=== PATIENT | female | born 1955 | race Caucasian/White ===

== ENCOUNTER → 2018-04-12 12:50 | Outpatient (CLI) | payer OTHER, MEDICAID, SELFPAY ==
[2018-04-12 14:08] LABS: Alanine Aminotransferase 44 IU/L (9-52); Albumin 4.3 g/dL (3.5-5.0); Albumin Globulin Ratio 1.7 (1.0-2.8); Alkaline Phosphatase 139 U/L (38-126); Aspartate Aminotransferase 39 IU/L (14-36); Bilirubin Total 0.8 mg/dL (0.2-1.3); Blood Urea Nitrogen 18 mg/dL (7-17); Calcium 9.8 mg/dL (8.4-10.2); Carbon Dioxide 28 mmol/L (22-32); Chloride 104 mmol/L (98-107); Estimated Glomerular Filt Rate > 60.0 mL/min (>60); Globulin 2.6 g/dL (1.7-4.1); Glucose 90 mg/dL (80-110); HEMOLYSIS < 15 (0-50); Sodium 141 mmol/L (137-145); Total Protein 6.9 g/dL (6.3-8.2)
[2018-04-12 14:15] LABS: Add Manual Diff / Slide Review NO; Basophils Percent Auto 0.7 % (0-2); Eosinophils Percent Auto 4.7 % (2-4); Hematocrit 43.9 % (36-46); Hemoglobin 15.3 g/dL (12.0-16.0); Lymphocytes Percent Auto 30.3 % (25-40); Mean Corpuscular HGB Conc 34.9 % (30-36); Mean Corpuscular Hemoglobin 31.1 PG (26-34); Monocytes Percent Auto 6.6 % (3-14); Neutrophils Absolute Auto 3400 /uL (3000-5900); Neutrophils Percent Auto 57.7 % (50-75); Platelet Count 225 X10^3/uL (150-400); Red Blood Cell Count 4.94 X10^6/uL (4.0-5.2); Red Cell Distribution Width 12.9 % (11.6-14.8); White Blood Cell Count 5.9 X10^3/uL (4.5-11.0)
[2018-04-12 14:33] LABS: Thyroid Stimulating Hormone 0.26 uIU/mL (0.47-4.68)
[2018-04-12 14:39] LABS: Ferritin 16.3 ng/mL (11.1-264)
[2018-04-14 14:16] LABS: Dehydroepiandrosterone Sulfate 141 mcg/dL (8-188)
== END ==
PROVIDERS: PCP Family Medicine; Visit Provider Family Medicine
DX: L65.9 Nonscarring hair loss, unspecified (principal)
CPT/HCPCS: 36415; 80053; 82627; 82728; 84443; 85025

== ENCOUNTER → 2018-04-13 15:18 | Outpatient (CLI) | payer OTHER, MEDICAID, SELFPAY ==
[2018-04-13 15:59] LABS: Free T3, Triiodothyronine Free 3.73 pg/mL (2.77-5.27); Free T4, Direct Thyroxine 1.52 ng/dL (0.78-2.19)
== END ==
PROVIDERS: PCP Family Medicine; Visit Provider Family Medicine
DX: L65.9 Nonscarring hair loss, unspecified (principal)
CPT/HCPCS: 84439; 84481

== ENCOUNTER → 2018-07-07 14:50 | Outpatient (CLI) | payer OTHER, MEDICAID, SELFPAY ==
[2018-07-07 15:34] LABS: Hemoglobin A1C% w Est Avg Glu 5.5 % (4.0-6.0)
== END ==
PROVIDERS: PCP Family Medicine; Visit Provider Family Medicine
DX: E11.8 Type 2 diabetes mellitus with unspecified complications (principal)
CPT/HCPCS: 36415; 83036

== ENCOUNTER 2018-07-23 17:36 | Emergency (ER) | payer OTHER, MEDICAID, SELFPAY ==
[2018-07-23 17:39] VITALS: BP 141/79; PULSE 71; RESP 18; TEMP 36.5; O2SAT 100; BMI 45.4
--- NOTE | 2018-07-23 17:56 | DI.RAD.S_ITS ---
PROCEDURE: XR CHEST 2V INDICATIONS: shortness of breath TECHNIQUE: 2 views of the chest were acquired. COMPARISON: None. FINDINGS: Surgical changes and devices: Left shoulder arthroplasty is unremarkable. Lungs and pleura: No pleural effusions or pneumothorax. Lungs are clear. Mediastinum: Mediastinal contours are normal. Heart size is normal. Bones and chest wall: No suspicious bony abnormalities. Soft tissues appear unremarkable. IMPRESSION: No acute cardiopulmonary findings. Dictated by: Nat Amador M.D. on 07/23/2018 at 18:49 Approved by: Nat Amador M.D. on 07/23/2018 at 18:50
--- NOTE | 2018-07-23 18:06 | ED_ITS ---
HPI - Dizziness General Chief Complaint: Dizziness Stated Complaint: DIZZY LIGHT HEADED/HISTORY OF BLOOD CLOTS BOTH LEG Time Seen by Provider: 07/23/18 18:03 Source: patient Mode of arrival: ambulatory Limitations: no limitations History of Present Illness HPI Narrative: 62-year-old female with a history of DVTs and PEs. She does have an IVC filter in place. He is not currently on anticoagulation. Here for evaluation of lightheadedness and weakness. Patient states that yesterday morning she woke up and felt very lightheaded. Not vertigo. No other associated symptoms. She states she sat down and the symptoms went away. She felt good the rest of the day. She states that this morning the same symptoms reoccurred. They did go away and then this afternoon she had a return of the symptoms. She states that she felt just like this when she was diagnosed with the DVTs and PEs. She states that when she is having the symptoms she is short of breath when she is not having the symptoms her breathing is normal. No chest pain. Related Data Home Medications Medication Instructions Recorded Confirmed vitamin B complex [B 1 tab PO QDAY #0 09/17/16 06/28/18 Complex-Vitamin B12] potassium chloride 10 meq PO Q DAY #30 tab 12/25/17 06/28/18 Previous Rx's Medication Instructions Recorded Diabetic Shoes ea #1 11/11/16 loratadine-pseudoephedrine 1 tab PO QDAY PRN #30 tab 08/06/17 quetiapine 25 mg OR Q DAY #90 tab 08/19/17 [bath bench] #1 10/21/17 cyclobenzaprine 10 mg PO TIDP PRN #45 tab 02/10/18 diphenhydramine HCl 50 mg PO Q6HP PRN #100 cap 03/19/18 minocycline 50 mg capsule 50 mg PO QDAY #60 cap 03/19/18 [true metrix test str] 1 ea SUBCUT Q DAY #100 ea 04/08/18 lancets See Label Instructions .ROUTE 04/08/18 .COMPLEX #100 ferrous sulfate 325 mg (65 mg 325 mg PO DAILY #30 tab 05/24/18 iron) tablet disabled parking permit See Label Instructions .ROUTE 05/30/18 .COMPLEX #1 each quetiapine [Seroquel] 50 mg PO Q DAY #90 tab 06/14/18 lift chair #1 ea 06/22/18 ferrous sulfate, dried ER 159 mg 159 mg PO DAILY #30 tab 06/28/18 (45 mg iron) tablet,extended release vit C 150 mg-vit E 30 unit-lutein 1 cap PO DAILY #30 cap 06/28/18 5 bp-hhbiknku-iqwii 3 150 mg capsule ferrous sulfate 325 mg (65 mg 325 mg PO DAILY #30 tab 06/30/18 iron) tablet,delayed release vitamins A,C,J-yjpi-mhdoks 14,320 1 cap PO DAILY #30 cap 07/02/18 unit-226 mg-200 unit capsule tramadol 50 mg tablet 50 mg PO Q4HP PRN #100 tab 07/21/18 naproxen 500 mg tablet 500 mg PO BID PRN #60 tab 07/23/18 Allergies Allergy/AdvReac Type Severity Reaction Status Date / Time amoxicillin [AMOXICILLIN] Allergy Unknown Verified 07/23/18 17:39 azelastine [AZELASTINE] AdvReac Severe BITTER Verified 07/23/18 17:39 HORRIBLE AFTER TASTE THAT TOOK 1 1/2 DAYS TO STOP acetaminophen [From VICODIN] AdvReac Mild constipatio Verified 07/23/18 17:39 n codeine [CODEINE] AdvReac Mild headache Verified 07/23/18 17:39 fluticasone [From FLONASE] AdvReac Mild Nose bleeds Verified 07/23/18 17:39 hydrocodone [From VICODIN] AdvReac Mild constipatio Verified 07/23/18 17:39 n Review of Systems Constitutional Denies fatigue, Denies fever(s), Denies headache(s) and Denies lethargy ENT Ears, Nose, Mouth, and Throat: Denies vertigo, Reports dizziness and Denies headache(s) Cardiovascular Denies chest pain, Denies syncope, Denies edema, Denies irregular heart rhythm, Reports lightheadedness, Denies palpitations and Denies dyspnea Respiratory Denies dyspnea Gastrointestinal Gastrointestinal: Denies abdominal pain, Denies melena, Denies nausea and Denies vomiting Musculoskeletal Denies myalgias and Denies arthralgias Integumentary/Breasts Denies lesions and Denies rash Neurologic Denies confusion, Denies vertigo, Reports dizziness, Denies syncope and Denies headache(s) Psychiatric Denies confusion Endocrine Denies fatigue and Denies palpitations Hematologic/Lymphatic Denies easy bleeding and Denies easy bruising [facility] Medical History Iron deficiency (Chronic) Itchy scalp (Chronic) Hair loss (Chronic) H/O deep venous thrombosis (Resolved Unknown) Chronic pain syndrome (Chronic Unknown) Low back pain (Chronic Unknown) Depression (Chronic 1992) Bipolar disorder (Chronic 1992) Seizures (Inactive 1989) Migraines (Chronic Unknown) Foot pain (Resolved 2004) Fibromyalgia (Chronic Unknown) Glaucoma (Chronic Unknown) Partial blindness (Chronic Unknown) Irritable bowel syndrome (Chronic Unknown) Carpal tunnel syndrome of right wrist (Chronic 12/25/17) Allergy (Chronic 1992) Diabetes (Chronic Unknown) Lupus (Chronic Unknown) Chickenpox (Resolved Unknown) Fractures (Resolved Unknown) Surgical History H/O shoulder surgery (Resolved 2012) H/O elbow surgery (Resolved 2011) Family History Father Age: 82 Lung cancer Diabetes 1.5, managed as type 2 Heart disease Social History Smoking Status: Former smoker Exam Initial Vital Signs Initial Vital Signs: Vital Signs Temperature 97.7 F 07/23/18 17:39 Pulse Rate 71 07/23/18 17:39 Respiratory Rate 18 07/23/18 17:39 Blood Pressure 141/79 H 07/23/18 17:39 Pulse Oximetry 100 07/23/18 17:39 Const General: cooperative, healthy appearing, comfortable, well developed, well groomed and No acute distress Orientation: alert, awake and oriented x3 [facility] Head: normal to inspection and normocephalic Resp Effort & Inspection: normal respiratory effort Auscultation: clear to auscultation bilaterally Cardio Rate: regular rate Rhythm: regular rhythm Pulses: radial pulses present GI Inspection: normal to inspection, no edema and non-distended Palpation: soft, No firm and No tender Skin Lesions: no lesions Rashes: no rashes Neuro General: alert and oriented x3 Cognition: normal cognition Speech: speech normal Extrem General: normal to inspection, capillary refill normal and No edema Psych Appearance: grossly normal and well kempt Course Orders Ordered: ED Orders 07/23/18 17:56 XR chest 2V Stat EKG-12 Lead Stat 07/23/18 18:30 Complete Blood Count AUTO DIFF Stat Comprehensive Metabolic Panel Stat Lactate (Lactic Acid) Stat Prothrombin Time INR Stat 07/23/18 18:49 CT angio chest PE protocol Stat 07/23/18 18:50 perip venous low extrem bi Stat Discontinued Medications Sodium Chloride (Normal Saline 0.9%) 1,000 mls @ 500 mls/hr IV BOLUS ONE Stop: 07/23/18 20:48 Last Infusion: 07/23/18 21:32 Dose: 0 mls/hr Admin: 07/23/18 18:58 Dose: 500 mls/hr Vital Signs - 8 hr 07/23/18 17:39 07/23/18 18:35 07/23/18 19:45 Temperature 97.7 F Pulse Rate 71 82 79 Respiratory Rate 18 22 19 Blood Pressure 141/79 H Blood Pressure [Right Arm] 125/50 L 135/60 Pulse Oximetry 100 100 100 07/23/18 20:29 07/23/18 21:33 Temperature Pulse Rate 85 81 Respiratory Rate 16 17 Blood Pressure 120/55 L Blood Pressure [Right Arm] 137/58 L Pulse Oximetry 100 100 MDM - Dizziness Lab Data Attestation: I reviewed the patient's lab results. Result diagrams: 07/23/18 18:30 07/23/18 18:30 Lab Results 07/23/18 07/23/18 07/23/18 Range/Units 18:30 18:30 18:30 WBC 6.5 (4.5-11.0) X10^3/uL RBC 4.76 (4.0-5.2) X10^6/uL Hgb 14.9 (12.0-16.0) g/dL Hct 42.7 (36-46) % MCV 89.8 (80-100) fL MCH 31.3 (26-34) PG MCHC 34.8 (30-36) % RDW 13.3 (11.6-14.8) % Plt Count 212 (150-400) X10^3/uL Neut % (Auto) 60.3 (50-75) % Lymph % (Auto) 27.0 (25-40) % Mitchell % (Auto) 7.2 (3-14) % Eos % (Auto) 4.4 H (2-4) % Baso % (Auto) 1.1 (0-2) % Neut # (Auto) 3900 (9528-4666) /uL PT 12.0 (10.1-12.7) SECONDS INR 1.1 (0.9-1.3) Sodium 145 (137-145) mmol/L Potassium 3.9 (3.4-5.1) mmol/L Chloride 105 (98-107) mmol/L Carbon Dioxide 32 (22-32) mmol/L BUN 22 H (7-17) mg/dL Creatinine 1.00 (0.52-1.04) mg/dL Estimated GFR 56.6 L (>60) mL/min BUN/Creatinine Ratio 22.0 (6-22) Glucose 90 (80-110) mg/dL Lactate (0.7-2.1) mmol/L Calcium 9.3 (8.4-10.2) mg/dL Total Bilirubin 0.4 (0.2-1.3) mg/dL AST 30 (14-36) IU/L ALT 34 (9-52) IU/L Alkaline Phosphatase 161 H (38-126) U/L Total Protein 6.5 (6.3-8.2) g/dL Albumin 4.1 (3.5-5.0) g/dL Globulin 2.4 (1.7-4.1) g/dL Albumin/Globulin Ratio 1.7 (1.0-2.8) //18 Range/Units 18:30 WBC (4.5-11.0) X10^3/uL RBC (4.0-5.2) X10^6/uL Hgb (12.0-16.0) g/dL Hct (36-46) % MCV (80-100) fL MCH (26-34) PG MCHC (30-36) % RDW (11.6-14.8) % Plt Count (150-400) X10^3/uL Neut % (Auto) (50-75) % Lymph % (Auto) (25-40) % Mitchell % (Auto) (3-14) % Eos % (Auto) (2-4) % Baso % (Auto) (0-2) % Neut # (Auto) (4507-4054) /uL PT (10.1-12.7) SECONDS INR (0.9-1.3) Sodium (137-145) mmol/L Potassium (3.4-5.1) mmol/L Chloride (98-107) mmol/L Carbon Dioxide (22-32) mmol/L BUN (7-17) mg/dL Creatinine (0.52-1.04) mg/dL Estimated GFR (>60) mL/min BUN/Creatinine Ratio (6-22) Glucose (80-110) mg/dL Lactate 0.6 L (0.7-2.1) mmol/L Calcium (8.4-10.2) mg/dL Total Bilirubin (0.2-1.3) mg/dL AST (14-36) IU/L ALT (9-52) IU/L Alkaline Phosphatase (38-126) U/L Total Protein (6.3-8.2) g/dL Albumin (3.5-5.0) g/dL Globulin (1.7-4.1) g/dL Albumin/Globulin Ratio (1.0-2.8) Urine Dip Bedside Urine Glucose Negative Bedside Urine Bilirubin - Negative Bedside Urine Ketone - Negative Urine Specific [place] 1.015 Bedside Urine Occult Blood - Negative Bedside Urine pH 6.0 Bedside Urine Protein - Negative Bedside Urine Urobilinogen - Negative Bedside Urine Nitrite - Negative Bedside Urine Leukocytes - Negative Esterase Imaging Data Chest x-ray: Radiologist's impression: [address] [address] XRay Report Signed Patient: Rupa Sullivan [facility]#: [id number] : 8Acct:[id number] Age/Sex: 62 / FDate of Service: 07/23/18 Loc: ED Accession Number: [id number] Procedure: XR chest 2V Ordering Provider: Eric Reed D.O. PROCEDURE: XR CHEST 2V INDICATIONS: shortness of breath TECHNIQUE: 2 views of the chest were acquired. COMPARISON: None. FINDINGS: Surgical changes and devices: Left shoulder arthroplasty is unremarkable. Lungs and pleura: No pleural effusions or pneumothorax. Lungs are clear. Mediastinum: Mediastinal contours are normal. Heart size is normal. Bones and chest wall: No suspicious bony abnormalities. Soft tissues appear unremarkable. IMPRESSION: No acute cardiopulmonary findings. Dictated by: Nat Amador M.D. on 07/23/2018 at 18:49 Approved by: Nat Amador M.D. on 07/23/2018 at 18:50 CT scan - chest: Radiologist's impression: [address] [address] [address] Scan Report Signed Patient: Rupa Sullivan#: [id number] : 8Acct:[id number] Age/Sex: 62 / FDate of Service: 07/23/18 Loc: ED Accession Number: [id number] Procedure: CT angio chest PE protocol Ordering Provider: Eric Reed D.O. PROCEDURE: CT ANGIO CHEST PE PROTOCOL INDICATIONS: shortness of breath history of clots TECHNIQUE: After the administration of intravenous contrast, 2 mm thick sections acquired from the pulmonary apices to the posterior costophrenic angles. 3-dimensional maximum intensity projection (MIP) coronal and sagittal reformats were then acquired through the thorax. For radiation dose reduction, the following was used: automated exposure control, adjustment of mA and/or kV according to patient size. COMPARISON: None. FINDINGS: Image quality: Excellent. Pulmonary arteries: The central pulmonary arteries demonstrate adequate opacification to evaluate for pulmonary embolus. The segmental and subsegmental pulmonary arteries are suboptimally opacified limiting evaluation for pulmonary embolus. No filling defects within the pulmonary trunk or the main pulmonary arteries to suggest embolus. Lungs and pleura: Lungs are clear. No pleural effusions or pneumothorax. Central and peripheral airways are patent. Mediastinum: Heart size is normal, without pericardial effusion. No mediastinal or hilar adenopathy. Thoracic aorta is normal in caliber and enhancement. Esophagus is normal in caliber, without hiatal hernia. Bones and chest wall: No suspicious bony lesions. Ribs and thoracic spine appear intact throughout. Thyroid gland is unremarkable. No axillary or supraclavicular adenopathy. Abdomen: Visualized upper abdominal solid organs appear normal in the early arterial phase of enhancement. IMPRESSION: 1. Suboptimal opacification of the segmental and subsegmental arteries to evaluate for embolus. However, no pulmonary embolus is visualized within the central pulmonary arteries. 2. No findings to explain dyspnea. Dictated by: Nat Amador M.D. on 07/23/2018 at 20:00 Approved by: Nat Amador M.D. on 07/23/2018 at 20:06 Venous US: Radiologist's impression: PROCEDURE: US PERIPH VENOUS LOW EXTREM BI INDICATIONS: EDEMA; HISTORY DVT TECHNIQUE: Real-time imaging, as well as color and pulse Doppler interrogation, were performed of the deep veins of both legs from the inguinal ligament to the popliteal fossa. COMPARISON: None. FINDINGS: The deep veins are normally compressible, and free of intraluminal thrombus. Color and pulse Doppler demonstrate normal phasic intravascular flow. There is normal augmentation response to distal compression maneuver. IMPRESSION: No deep vein thrombosis of the bilateral lower extremities. Dictated by: Nat Amador M.D. on 07/23/2018 at 20:14 Approved by: Nat Amador M.D. on 07/23/2018 at 20:14 ECG Data Attestation: I personally reviewed and interpreted this ECG as follows: Prior ECG tracings: not available for review Interpretation: Sinus rhythm Ventricular rate 80 Normal QRS Normal QTC Nonspecific ST T wave changes MDM Narrative Medical decision making narrative: 62-year-old female. No signs of DVT or PE. Labs unremarkable. EKG unremarkable. She was asymptomatic the time of my exam. Doubt CVA. Doubt TIA. Symptoms are not consistent with vertigo. Patient was concerned about a DVT/PE which she does not have according to the studies done here in the emergency department. Will hold on further workup for now. Patient was given return precautions. She expressed understanding and agreement with plan. Discharge Plan Departure Patient Disposition: Home Clinical Impression: Lightheadedness Discharge Date/Time: 07/23/18 21:34 Interventions: ED Discharge Assessment Last Done: 07/23/18 21:33 Instructions: DI for Dizziness-Nonvertigo Activity Restrictions/Additional Instructions: Continue to take all of your medications as instructed. Increase your fluid intake. Return to the emergency department for any new or worsening symptoms Prescriptions: No Action ferrous sulfate, dried 159 mg (45 mg iron) tablet extended release 159 mg PO DAILY Qty: 30 RF: 5 vit C-vit X-iymvrx-uww-om-3 [Ocuvite] 319-20-7-150 xy-tham-xm-mg capsule 1 cap PO DAILY Qty: 30 RF: 5 vitamin B complex [B Complex-Vitamin B12] 1 EACH tablet 1 tab PO QDAY Qty: 0 RF: 0 Diabetic Shoes Qty: 1 RF: 0 loratadine-pseudoephedrine 10 MG/240 MG tablet extended release 24 hr 1 tab PO QDAY PRNQty: 30 RF: 3 quetiapine 25 MG tablet 25 mg OR Q DAY Qty: 90 RF: 4 [bath bench] Qty: 1 RF: 0 potassium chloride 10 MEQ capsule, extended release 10 meq PO Q DAY Qty: 30 RF: 1 cyclobenzaprine 10 MG tablet 10 mg PO TIDP PRNQty: 45 RF: 3 diphenhydramine HCl 50 mg capsule 50 mg PO Q6HP PRNQty: 100 RF: 5 minocycline 50 mg capsule 50 mg PO QDAY Qty: 60 RF: 1 [true metrix test str] 1 ea SUBCUT Q DAY Qty: 100 RF: 3 lancets See Label Instructions .ROUTE .COMPLEX Qty: 100 RF: 3 ferrous sulfate 325 mg (65 mg iron) tablet 325 mg PO DAILY Qty: 30 RF: [address] See Label Instructions .ROUTE .COMPLEX Qty: 1 RF: 0 quetiapine [Seroquel] 50 mg tablet 50 mg PO Q DAY Qty: 90 RF: 1 lift chair Qty: 1 RF: 0 ferrous sulfate 325 mg (65 mg iron) tablet,delayed release (DR/EC) 325 mg PO DAILY Qty: 30 RF: 0 vitamins A,C,H-axvi-ovgefk [PreserVision AREDS] 14,320-226-200 owve-xc-txqo capsule 1 cap PO DAILY Qty: 30 RF: 11 tramadol 50 mg tablet 50 mg PO Q4HP PRN (Reason: pain) Qty: 100 RF: 0 naproxen 500 mg tablet 500 mg PO BID PRN (Reason: pain) Qty: 60 RF: 5
[2018-07-23 18:35] VITALS: BP 125/50; PULSE 82; RESP 22; O2SAT 100
[2018-07-23 18:38] LABS: Add Manual Diff / Slide Review NO; Basophils Percent Auto 1.1 % (0-2); Eosinophils Percent Auto 4.4 % (2-4); Hematocrit 42.7 % (36-46); Hemoglobin 14.9 g/dL (12.0-16.0); Mean Corpuscular HGB Conc 34.8 % (30-36); Mean Corpuscular Hemoglobin 31.3 PG (26-34); Mean Corpuscular Volume 89.8 fL (80-100); Monocytes Percent Auto 7.2 % (3-14); Neutrophils Absolute Auto 3900 /uL (3000-5900); Neutrophils Percent Auto 60.3 % (50-75); Platelet Count 212 X10^3/uL (150-400); Red Blood Cell Count 4.76 X10^6/uL (4.0-5.2); Red Cell Distribution Width 13.3 % (11.6-14.8); White Blood Cell Count 6.5 X10^3/uL (4.5-11.0)
[2018-07-23 18:45] LABS: INR 1.1 (0.9-1.3)
--- NOTE | 2018-07-23 18:49 | DI.CT.S_ITS ---
PROCEDURE: CT ANGIO CHEST PE PROTOCOL INDICATIONS: shortness of breath history of clots TECHNIQUE: After the administration of intravenous contrast, 2 mm thick sections acquired from the pulmonary apices to the posterior costophrenic angles. 3-dimensional maximum intensity projection (MIP) coronal and sagittal reformats were then acquired through the thorax. For radiation dose reduction, the following was used: automated exposure control, adjustment of mA and/or kV according to patient size. COMPARISON: None. FINDINGS: Image quality: Excellent. Pulmonary arteries: The central pulmonary arteries demonstrate adequate opacification to evaluate for pulmonary embolus. The segmental and subsegmental pulmonary arteries are suboptimally opacified limiting evaluation for pulmonary embolus. No filling defects within the pulmonary trunk or the main pulmonary arteries to suggest embolus. Lungs and pleura: Lungs are clear. No pleural effusions or pneumothorax. Central and peripheral airways are patent. Mediastinum: Heart size is normal, without pericardial effusion. No mediastinal or hilar adenopathy. Thoracic aorta is normal in caliber and enhancement. Esophagus is normal in caliber, without hiatal hernia. Bones and chest wall: No suspicious bony lesions. Ribs and thoracic spine appear intact throughout. Thyroid gland is unremarkable. No axillary or supraclavicular adenopathy. Abdomen: Visualized upper abdominal solid organs appear normal in the early arterial phase of enhancement. IMPRESSION: 1. Suboptimal opacification of the segmental and subsegmental arteries to evaluate for embolus. However, no pulmonary embolus is visualized within the central pulmonary arteries. 2. No findings to explain dyspnea. Dictated by: Nat Amador M.D. on 07/23/2018 at 20:00 Approved by: Nat Amador M.D. on 07/23/2018 at 20:06
--- NOTE | 2018-07-23 18:50 | DI.US.S_ITS ---
PROCEDURE: US PERIPH VENOUS LOW EXTREM BI INDICATIONS: EDEMA; HISTORY DVT TECHNIQUE: Real-time imaging, as well as color and pulse Doppler interrogation, were performed of the deep veins of both legs from the inguinal ligament to the popliteal fossa. COMPARISON: None. FINDINGS: The deep veins are normally compressible, and free of intraluminal thrombus. Color and pulse Doppler demonstrate normal phasic intravascular flow. There is normal augmentation response to distal compression maneuver. IMPRESSION: No deep vein thrombosis of the bilateral lower extremities. Dictated by: Nat Amador M.D. on 07/23/2018 at 20:14 Approved by: Nat Amador M.D. on 07/23/2018 at 20:14
[2018-07-23 18:51] LABS: Alanine Aminotransferase 34 IU/L (9-52); Albumin 4.1 g/dL (3.5-5.0); Albumin Globulin Ratio 1.7 (1.0-2.8); Alkaline Phosphatase 161 U/L (38-126); Aspartate Aminotransferase 30 IU/L (14-36); Bilirubin Total 0.4 mg/dL (0.2-1.3); Blood Urea Nitrogen 22 mg/dL (7-17); Calcium 9.3 mg/dL (8.4-10.2); Carbon Dioxide 32 mmol/L (22-32); Chloride 105 mmol/L (98-107); Estimated Glomerular Filt Rate 56.6 mL/min (>60); Globulin 2.4 g/dL (1.7-4.1); Glucose 90 mg/dL (80-110); HEMOLYSIS < 15 (0-50); Potassium 3.9 mmol/L (3.4-5.1); Sodium 145 mmol/L (137-145); Total Protein 6.5 g/dL (6.3-8.2)
[2018-07-23 18:52] LABS: Lactate (Lactic Acid) 0.6 mmol/L (0.7-2.1)
[2018-07-23] MEDS: SODIUM CHLORIDE 0.9% 1,000 ML 500 ML IV (18:58)
[2018-07-23 19:45] VITALS: BP 135/60; PULSE 79; RESP 19; O2SAT 100
[2018-07-23 20:29] VITALS: BP 137/58; PULSE 85; RESP 16; O2SAT 100
[2018-07-23 21:33] VITALS: BP 120/55; PULSE 81; RESP 17; O2SAT 100
== END 2018-07-23 21:34 | disposition home or self-care (01) ==
PROVIDERS: Emergency Provider Emergency Medicine; PCP Family Medicine
DX: R42 Dizziness and giddiness (principal)
CPT/HCPCS: 71046; 71275; 80053; 81003; 83605; 85025; 85610; 93005; 93970; 96360; 96361; 99283; 99285; Q9967

== ENCOUNTER → 2019-01-26 13:50 | Outpatient (CLI) | payer OTHER, MEDICAID, SELFPAY ==
--- NOTE | 2019-01-26 13:53 | DI.RAD.S_ITS ---
PROCEDURE: XR KNEE LT 3V INDICATIONS: Knee pain TECHNIQUE: 3 views of the knee were acquired. COMPARISON: None. FINDINGS: Bones: No fractures or dislocations. No suspicious bony lesions. There is tricompartmental osteoarthritis, severe at the patellofemoral joint, moderate lateral femorotibial joint and mild at the medial femorotibial joint. Mild chondrocalcinosis. Soft tissues: No joint effusion. Note is made of soft tissue calcifications anterior to tibial tubercle. IMPRESSION: Severe osteoarthritis. Dictated by: Anastacia Alvarado M.D. on 01/26/2019 at 15:07 Approved by: Anastacia Alvarado M.D. on 01/26/2019 at 15:09
--- NOTE | 2019-01-26 13:53 | DI.RAD.S_ITS ---
PROCEDURE: XR KNEE RT 3V INDICATIONS: Knee pain TECHNIQUE: The views of the knee were acquired. COMPARISON: [facility], , KNEE 3V RIGHT, 10/21/2017, 10:54. FINDINGS: Bones: No fractures or dislocations. No suspicious bony lesions. There is tricompartmental osteoarthritis, most severe in the medial femorotibial compartment and patellofemoral compartment. Soft tissues: No joint effusion. No suspicious soft tissue calcifications. IMPRESSION: Severe osteoarthritis. Dictated by: Anastacia Alvarado M.D. on 01/26/2019 at 15:10 Approved by: Anastacia Alvarado M.D. on 01/26/2019 at 15:11
[2019-01-26 15:50] LABS: BUN Creatinine Ratio 28.6 (6-22); Blood Urea Nitrogen 20 mg/dL (7-17); Calcium 9.9 mg/dL (8.4-10.2); Carbon Dioxide 23 mmol/L (22-32); Chloride 108 mmol/L (98-107); Estimated Glomerular Filt Rate > 60.0 mL/min (>60); Glucose 157 mg/dL (80-110); HEMOLYSIS 22 (0-50); Potassium 4.1 mmol/L (3.4-5.1); Sodium 143 mmol/L (137-145)
[2019-01-26 16:15] LABS: Hemoglobin A1C% w Est Avg Glu 5.3 % (4.0-6.0)
== END ==
PROVIDERS: PCP Student in an Organized Health Care Education/Training Program; Visit Provider Student in an Organized Health Care Education/Training Program
DX: M25.562 Pain in left knee (principal); M25.561 Pain in right knee; M17.0 Bilateral primary osteoarthritis of knee; E66.01 Morbid (severe) obesity due to excess calories; Z68.42 Body mass index [BMI] 45.0-49.9, adult; E55.9 Vitamin D deficiency, unspecified
CPT/HCPCS: 36415; 73562; 80048; 82306; 83036

== ENCOUNTER → 2019-08-18 13:52 | Outpatient (CLI) | payer OTHER, MEDICAID, SELFPAY ==
[2019-08-18 15:44] LABS: Hematocrit 45.8 % (36-46); Hemoglobin 15.6 g/dL (12.0-16.0); Mean Corpuscular HGB Conc 34.1 % (30-36); Mean Corpuscular Hemoglobin 31.5 PG (26-34); Mean Corpuscular Volume 92.2 fL (80-100); Platelet Count 241 X10^3/uL (150-400); Red Blood Cell Count 4.97 X10^6/uL (4.0-5.2); Red Cell Distribution Width 12.8 % (11.6-14.8); White Blood Cell Count 5.8 X10^3/uL (4.5-11.0)
[2019-08-18 15:48] LABS: HEMOLYSIS < 15 (0-50); Iron 91 ug/dL (37-170)
[2019-08-18 15:56] LABS: Hemoglobin A1C% w Est Avg Glu 5.2 % (4.0-6.0)
[2019-08-18 16:01] LABS: Percent Iron Saturation 30 % (15-50); Total Iron Binding Capacity 305 ug/dL (265-497); Transferrin 247 mg/dL (206-381)
[2019-08-18 16:33] LABS: Creatinine Urine Random 47.2 mg/dL
[2019-08-18 16:38] LABS: Microalbumin Urine Random 0.9 mg/dL (0-1.6)
== END ==
PROVIDERS: PCP Student in an Organized Health Care Education/Training Program; Visit Provider Student in an Organized Health Care Education/Training Program
DX: E61.1 Iron deficiency (principal); E11.8 Type 2 diabetes mellitus with unspecified complications
CPT/HCPCS: 36415; 82043; 82570; 83036; 83540; 83550; 85027

== ENCOUNTER → 2021-05-01 14:52 | Outpatient (CLI) | payer OTHER, MEDICAID, SELFPAY ==
--- NOTE | 2021-05-01 14:53 | DI.RAD.S_ITS ---
PROCEDURE: XR SHOULDER RT MIN 2V INDICATIONS: Right shoulder pain after injury. c/o crepitus TECHNIQUE: 3 views of the shoulder were acquired. COMPARISON: None. FINDINGS: Bones: No fractures or dislocations. No suspicious bony lesions. Visualized ribs appear intact. Mild acromioclavicular and severe glenohumeral joint space narrowing with bony sclerosis and periarticular osteophyte formation. Soft tissues: No suspicious soft tissue calcifications. IMPRESSION: Mild acromioclavicular and severe glenohumeral joint degeneration. Dictated by: Abdirahman Barker [facility] Interpreted: Kvng Ortega MD on 05/01/2021 at 15:34 Transcribed by: SHELLEY on 05/01/2021 at 15:35 Approved by: Kvng Ortega M.D. on 05/01/2021 at 16:46
[2021-05-01 15:59] LABS: Hematocrit 45.9 % (36-46); Hemoglobin 15.4 g/dL (12.0-16.0); Mean Corpuscular HGB Conc 33.6 % (30-36); Mean Corpuscular Hemoglobin 31.1 PG (26-34); Mean Corpuscular Volume 92.6 fL (80-100); Platelet Count 205 X10^3/uL (150-400); Red Blood Cell Count 4.96 X10^6/uL (4.0-5.2); Red Cell Distribution Width 12.6 % (11.6-14.8); White Blood Cell Count 5.7 X10^3/uL (4.5-11.0)
[2021-05-01 16:20] LABS: Hemoglobin A1C% w Est Avg Glu 5.9 % (4.0-6.0)
[2021-05-01 16:23] LABS: Alanine Aminotransferase 32 IU/L (<35); Albumin 4.4 g/dL (3.5-5.0); Albumin Globulin Ratio 1.5 (1.0-2.8); Alkaline Phosphatase 184 U/L (38-126); Aspartate Aminotransferase 39 IU/L (14-36); BUN Creatinine Ratio 38.2 (6-22); Bilirubin Total 0.7 mg/dL (0.2-1.3); Blood Urea Nitrogen 21 mg/dL (7-17); Calcium 10.1 mg/dL (8.4-10.2); Carbon Dioxide 23 mmol/L (22-32); Chloride 107 mmol/L (98-107); Cholesterol 214 mg/dL (140-199); Estimated Glomerular Filt Rate > 60.0 mL/min (>60); Globulin 2.9 g/dL (1.7-4.1); Glucose 110 mg/dL (80-110); HDL Cholesterol 46 mg/dL (40-60); HEMOLYSIS < 15 (0-50); LDL Cholesterol Calculated 117 mg/dL (<100); Potassium 3.7 mmol/L (3.4-5.1); Sodium 142 mmol/L (137-145); Total Protein 7.3 g/dL (6.3-8.2); Triglycerides 254 mg/dL (35-150)
[2021-05-01 17:09] LABS: Creatinine Urine Random 98.4 mg/dL
[2021-05-01 17:10] LABS: HEMOLYSIS < 15 (0-50); Iron 85 ug/dL (37-170)
[2021-05-01 17:14] LABS: Microalbumi Creatinin Ratio Ur 29.4 ug/mg CR (<30); Microalbumin Urine Random 2.9 mg/dL (0-1.6)
[2021-05-01 17:20] LABS: Percent Iron Saturation 29 % (15-50); Total Iron Binding Capacity 294 ug/dL (265-497); Transferrin 240 mg/dL (206-381)
[2021-05-01 17:43] LABS: TSH w/ Reflex to FT4 0.05 uIU/mL (0.47-4.68)
[2021-05-02 04:13] LABS: Free T4, Direct Thyroxine 1.46 ng/dL (0.78-2.19)
== END ==
PROVIDERS: PCP Student in an Organized Health Care Education/Training Program; Referring Provider Student in an Organized Health Care Education/Training Program; Visit Provider Student in an Organized Health Care Education/Training Program
DX: M25.511 Pain in right shoulder (principal); E03.9 Hypothyroidism, unspecified; E11.59 Type 2 diabetes mellitus with other circulatory complications; E61.1 Iron deficiency; E66.01 Morbid (severe) obesity due to excess calories; I10 Essential (primary) hypertension; Z68.41 Body mass index [BMI] 40.0-44.9, adult
CPT/HCPCS: 36415; 73030; 80053; 80061; 82043; 82570; 83036; 83540; 83550; 84439; 84443; 85027

== ENCOUNTER 2021-07-24 14:26 | Inpatient (IN) | payer OTHER, MEDICAID, SELFPAY ==
[2021-07-24] VITALS (28 sets, daily range): BP systolic 115–157; BP diastolic 56–80; PULSE 65–87; RESP 14–41; TEMP 36.9–37.2; O2SAT 83–98; BMI 45.6
--- NOTE | 2021-07-24 14:29 | DI.RAD.S_ITS ---
PROCEDURE: XR CHEST 1V INDICATIONS: flu-like symptoms TECHNIQUE: One view of the chest was acquired. COMPARISON: [facility], CR, XR CHEST 2V, 07/23/2018, 17:42. FINDINGS: Surgical changes and devices: Partially visualized left shoulder arthroplasty. Lungs and pleura: There is appearance of bilateral pulmonary opacities. Mediastinum: Mediastinal contours appear normal. Heart size is enlarged. Bones and chest wall: No suspicious bony lesions. Overlying soft tissues appear unremarkable. IMPRESSION: Bilateral pulmonary opacities suspicious for pneumonia. Areas of superimposed edema cannot be excluded. Dictated by: Arabella Valdez M.D. on 07/24/2021 at 16:05 Approved by: Arabella Valdez M.D. on 07/24/2021 at 16:05
--- NOTE | 2021-07-24 14:40 | ED.GENADULT ---
HPI - General Adult General Chief complaint: Shortness of Breath/Dyspnea Stated complaint: sob Time Seen by Provider: 07/24/21 14:26 Source: patient Mode of arrival: EMS History of Present Illness HPI narrative: Patient is a 65-year-old female. Is under immunized against COVID-19 who is here for evaluation is 7-10 days of fevers and chills and cough. She states she is also very short of breath whenever she gets up to do anything. This does require her to sit down. She has chest pain when she coughs. Both her son and daughter both have COVID-19. Her daughter is currently admitted to the ICU at another facility due to COVID-19. She states that today it got to the point where she common breather do anything so she called EMS. Is reported that upon their arrival she was satting in the low 80s on room air. This did improve with oxygen by non-rebreather. No prior underlying lung issues. Related Data Previous Rx's Medication Instructions Recorded naproxen 500 mg tablet 500 mg PO BID PRN #60 tab 09/17/20 ferrous sulfate 325 mg (65 mg 325 mg PO DAILY #30 tab 03/19/21 iron) tablet,delayed release Allergies Allergy/AdvReac Type Severity Reaction Status Date / Time amoxicillin [AMOXICILLIN] Allergy Unknown Verified 07/24/21 14:51 azelastine [AZELASTINE] AdvReac Severe BITTER Verified 07/24/21 14:51 HORRIBLE AFTER TASTE THAT TOOK 1 1/2 DAYS TO STOP codeine [CODEINE] AdvReac Mild headache Verified 07/24/21 14:51 fluticasone [From FLONASE] AdvReac Mild Nose bleeds Verified 07/24/21 14:51 hydrocodone [From VICODIN] AdvReac Mild constipatio Verified 07/24/21 14:51 n Review of Systems Constitutional Constitutional: Reports body ache(s), Reports fatigue, Reports fever(s) and Reports lethargy Eyes Eyes: Reports system reviewed and no additional complaints, except as documented ENT Ears, Nose, Mouth, and Throat: Reports system reviewed and no additional complaints, except as documented Cardiovascular Cardiovascular: Denies chest pain, Reports dyspnea and Reports dyspnea on exertion Respiratory Respiratory: Reports dyspnea and Reports dyspnea on exertion Gastrointestinal Gastrointestinal: Reports system reviewed and no additional complaints, except as documented Musculoskeletal Musculoskeletal: Reports system reviewed and no additional complaints, except as documented Integumentary/Breasts Skin/Breast: Reports system reviewed and no additional complaints, except as documented Neurologic Neurologic: Reports system reviewed and no additional complaints, except as documented Endocrine Endocrine: Reports fatigue Hematologic/Lymphatic On Anticoagulants: No Allergic/Immunologic Allergic/Immunologic: Reports system reviewed and no additional complaints, except as documented Patient History Medical History (Updated 07/24/21 @ 18:09 by Mik Drake MD) Bunion of great toe of left foot (01/28/16) Carpal tunnel syndrome of right wrist (12/25/17) Chickenpox (Unknown) Depression (1992) Diabetes (Unknown) Environmental allergies Fibromyalgia (Unknown) Fractures (Unknown) Glaucoma (Unknown) H/O deep venous thrombosis (Unknown) Hair loss Hyperthyroidism Iron deficiency Irritable bowel syndrome (Unknown) Itchy scalp Lipoma of right upper extremity (05/20/16) Low back pain (Unknown) Lupus (Unknown) Migraines (Unknown) Pulmonary embolism Surgical History (Updated 05/04/21 @ 14:58 by Jadiel Morrison MD) H/O elbow surgery (2011) H/O shoulder surgery (2012) Family History Father Age: 85 Lung cancer Diabetes 1.5, managed as type 2 Heart disease Social History Smoking Status: Former smoker Smoking Status: Former smoker Exam Initial Vital Signs Initial Vital Signs: Vital Signs Temperature 98.4 F 07/24/21 14:30 Pulse Rate 80 07/24/21 14:30 Respiratory Rate 29 H 07/24/21 14:30 Blood Pressure 142/66 H 07/24/21 14:30 Pulse Oximetry 84 L 07/24/21 14:30 Const General: cooperative, well developed and well groomed [facility] Head: normal to inspection and normocephalic Eyes General: appearance normal, both eyes and all related structures Resp Effort & Inspection: labored and tachypneic Auscultation: clear to auscultation bilaterally Cardio Rate: regular rate Rhythm: regular rhythm GI Inspection: normal to inspection Skin General: no rashes or lesions noted Neuro General: patient alert, patient awake, patient oriented x3 and moves all extremities Extrem General: No edema Psych Appearance: grossly normal and well kempt Course Orders Ordered: ED Orders 07/24/21 14:28 High flow/High humidity nasal STAT 07/24/21 14:29 XR chest 1V Stat EKG-12 Lead Stat 07/24/21 14:31 COVID19 - ADMIT (AUTO LOCATOR swab/PCR) Stat Influenza A & B (PCR) Stat 07/24/21 14:40 Blood Culture Stat 07/24/21 14:45 C-Reactive Protein Quant Stat Complete Blood Count AUTO DIFF Stat Comprehensive Metabolic Panel Stat D Dimer Stat Ferritin Stat Lactate (Lactic Acid) Stat Lactate Dehydrogenase Stat NT-proBNP (BNP-Adult 18+) Stat Procalcitonin Stat Troponin & CK Cardiac Panel Stat 07/24/21 15:09 Arterial Blood Gas Stat Acetaminophen (Acetaminophen 325 Mg Tablet) 650 mg PO Q6HR PRN PRN Reason: Fever Dexamethasone (Dexamethasone 10 Mg/Ml Vial) 6 mg IV DAILY CARYN Stop: 08/02/21 09:01 Enoxaparin Sodium (Enoxaparin 40 Mg/0.4 Ml Syringe) 40 mg SUBCUT BID [facility] [place] Remdesivir 100 mg/ Sodium (Chloride) 250 mls @ 250 mls/hr IV 1600 CARYN Stop: 07/28/21 16:59 Sodium Chloride (Normal Saline 0.9%) 250 mls @ 21 mls/hr IV Q24H PRN PRN Reason: Flush Last Admin: 07/24/21 17:52 Dose: 21 mls/hr Documented by: FREYAHITE Sodium Chloride (Normal Saline 0.9%) 1,000 mls @ 125 mls/hr IV CONT CARYN Stop: 07/25/21 01:59 Last Admin: 07/24/21 18:18 Dose: 125 mls/hr Documented by: SANJIV Insulin Human Lispro (Insulin Lispro 100 Unit/Ml 3ml Vial) 0 unit SUBCUT ACHS CARYN; Protocol Magnesium Hydroxide (Magnesium Hydroxide 30 Ml Udc) 30 ml PO BID CARYN Naloxone HCl (Naloxone 0.4 Mg/Ml Vial) 0.2 mg IV Q2MIN PRN PRN Reason: Opiate Reversal Ondansetron HCl (Ondansetron 4 Mg/2 Ml Inj) 4 mg IV Q4HR PRN PRN Reason: Nausea And Vomiting Sodium Chloride (Sodium Chloride 0.9% Flush) 10 ml IV PRN PRN PRN Reason: Flush Tramadol HCl (Tramadol 50 Mg Tablet) 50 mg PO QID PRN PRN Reason: Pain, Moderate (4-6) Last Admin: 07/24/21 18:18 Dose: 50 mg Documented by: SANJIV Discontinued Medications Dexamethasone (Dexamethasone 10 Mg/Ml Vial) 10 mg IV NOW ONE Stop: 07/24/21 16:16 Last Admin: 07/24/21 16:43 Dose: 10 mg Documented by: BIB Sodium Chloride (Normal Saline 0.9%) 1,000 mls @ 125 mls/hr IV CONT CARYN Stop: 07/24/21 17:01 Last Infusion: 07/24/21 17:08 Dose: 125 mls/hr Documented by: Admin: 07/24/21 14:55 Dose: 125 mls/hr Documented by: BIB Remdesivir 200 mg/ Sodium (Chloride) 250 mls @ 250 mls/hr IV NOW ONE Stop: 07/24/21 16:16 Last Infusion: 07/24/21 17:09 Dose: 0 mls/hr Documented by: Infusion: 07/24/21 17:09 Dose: 250 mls/hr Documented by: Admin: 07/24/21 16:43 Dose: 250 mls/hr Documented by: BIB Vital Signs Vital signs: Vital Signs - 8 hr 07/24/21 14:30 07/24/21 14:40 07/24/21 14:51 Temperature 98.4 F Pulse Rate 80 80 80 Respiratory Rate 29 H 35 H 33 H Blood Pressure 142/66 H 125/60 Pulse Oximetry 84 L 92 95 07/24/21 15:00 07/24/21 15:10 07/24/21 15:20 Temperature Pulse Rate 80 80 78 Respiratory Rate 31 H 35 H 35 H Blood Pressure 125/66 131/72 129/63 Pulse Oximetry 94 93 96 07/24/21 15:30 07/24/21 15:40 07/24/21 15:50 Temperature Pulse Rate 79 77 79 Respiratory Rate 36 H 37 H 28 H Blood Pressure 121/65 135/70 136/63 Pulse Oximetry 96 97 95 07/24/21 16:00 07/24/21 16:10 Temperature Pulse Rate 76 79 Respiratory Rate 14 30 H Blood Pressure 130/60 134/65 Pulse Oximetry 98 93 Medical Decision Making Lab Data Lab results reviewed: Yes I reviewed the patient's lab results. Result diagrams: 07/24/21 14:45 07/24/21 14:45 Labs: Lab Results 07/24/21 07/24/21 07/24/21 Range/Units 14:31 14:31 14:45 WBC (4.5-11.0) X10^3/uL RBC (4.0-5.2) X10^6/uL Hgb (12.0-16.0) g/dL Hct (36-46) % MCV (80-100) fL MCH (26-34) PG MCHC (30-36) % RDW (11.6-14.8) % Plt Count (150-400) X10^3/uL Neut % (Auto) (50-75) % Lymph % (Auto) (25-40) % [place] % (Auto) (3-14) % Eos % (Auto) (2-4) % Baso % (Auto) (0-2) % Neut # (Auto) (4895-3535) /uL Lymph # (Auto) (2030-1330) /uL [place] # (Auto) (0-900) /uL Eos # (Auto) (0-450) /uL Baso # (Auto) (0-100) /uL D-Dimer 744 H (<230) ng/mL ABG pH (7.35-7.45) ABG pCO2 (35-45) mmHg ABG pO2 (80-100) mmHg ABG HCO3 (22-26) mmol/L ABG Total CO2 (21-31) mmol/L ABG O2 Saturation (95-100) % ABG Base Excess (-2-2) mmol/L FiO2 Sodium (137-145) mmol/L Potassium (3.4-5.1) mmol/L Chloride (98-107) mmol/L Carbon Dioxide (22-32) mmol/L BUN (7-17) mg/dL Creatinine (0.52-1.04) mg/dL Estimated GFR (>60) mL/min BUN/Creatinine Ratio (6-22) Glucose (80-110) mg/dL Lactate (0.7-2.1) mmol/L Calcium (8.4-10.2) mg/dL Ferritin (11-264) ng/mL Total Bilirubin (0.2-1.3) mg/dL AST (14-36) IU/L ALT (<35) IU/L Alkaline Phosphatase (38-126) U/L Lactate Dehydrogenase (313-618) U/L Total Creatine Kinase (30-135) U/L CK-MB (CK-2) (<2.37) ng/mL CK-MB (CK-2) Rel Index (1.5-5.0) % Troponin I (0.01-0.034) ng/mL C-Reactive Protein (<1.0) mg/dL NT-Pro-B Natriuret Pep (<125) pg/mL Total Protein (6.3-8.2) g/dL Albumin (3.5-5.0) g/dL Globulin (1.7-4.1) g/dL Albumin/Globulin Ratio (1.0-2.8) Procalcitonin (<0.5) ng/mL SARS-CoV-2 (PCR) Positive H (Negative) Influenza A (RT-PCR) Flu a negative (NEGATIVE) Influenza B (RT-PCR) Flu b negative (NEGATIVE) 07/24/21 07/24/21 07/24/21 Range/Units 14:45 14:45 14:45 WBC 3.9 L (4.5-11.0) X10^3/uL RBC 4.58 (4.0-5.2) X10^6/uL Hgb 14.2 (12.0-16.0) g/dL Hct 42.1 (36-46) % MCV 92.0 (80-100) fL MCH 30.9 (26-34) PG MCHC 33.6 (30-36) % RDW 12.8 (11.6-14.8) % Plt Count 171 (150-400) X10^3/uL Neut % (Auto) 73.3 (50-75) % Lymph % (Auto) 20.8 L (25-40) % [place] % (Auto) 5.6 (3-14) % Eos % (Auto) 0.0 L (2-4) % Baso % (Auto) 0.3 (0-2) % Neut # (Auto) 2900 (1399-7791) /uL Lymph # (Auto) 800 L (9761-9470) /uL [place] # (Auto) 200 (0-900) /uL Eos # (Auto) 0 (0-450) /uL Baso # (Auto) 0 (0-100) /uL D-Dimer (<230) ng/mL ABG pH (7.35-7.45) ABG pCO2 (35-45) mmHg ABG pO2 (80-100) mmHg ABG HCO3 (22-26) mmol/L ABG Total CO2 (21-31) mmol/L ABG O2 Saturation (95-100) % ABG Base Excess (-2-2) mmol/L FiO2 Sodium 140 (137-145) mmol/L Potassium 4.3 (3.4-5.1) mmol/L Chloride 109 H (98-107) mmol/L Carbon Dioxide 25 (22-32) mmol/L BUN 17 (7-17) mg/dL Creatinine 0.51 L (0.52-1.04) mg/dL Estimated GFR > 60.0 (>60) mL/min BUN/Creatinine Ratio 33.3 H (6-22) Glucose 123 H (80-110) mg/dL Lactate (0.7-2.1) mmol/L Calcium 8.9 (8.4-10.2) mg/dL Ferritin 980 H (11-264) ng/mL Total Bilirubin 0.7 (0.2-1.3) mg/dL AST 96 H (14-36) IU/L ALT 43 H (<35) IU/L Alkaline Phosphatase 103 (38-126) U/L Lactate Dehydrogenase 1492 H (313-618) U/L Total Creatine Kinase 110 (30-135) U/L CK-MB (CK-2) 1.39 (<2.37) ng/mL CK-MB (CK-2) Rel Index 1.3 L (1.5-5.0) % Troponin I < 0.012 (0.01-0.034) ng/mL C-Reactive Protein 24.2 H (<1.0) mg/dL NT-Pro-B Natriuret Pep 322 H (<125) pg/mL Total Protein 6.5 (6.3-8.2) g/dL Albumin 3.6 (3.5-5.0) g/dL Globulin 2.9 (1.7-4.1) g/dL Albumin/Globulin Ratio 1.2 (1.0-2.8) Procalcitonin 0.12 (<0.5) ng/mL SARS-CoV-2 (PCR) (Negative) Influenza A (RT-PCR) (NEGATIVE) Influenza B (RT-PCR) (NEGATIVE) 07/24/21 07/24/21 Range/Units 14:45 15:09 WBC (4.5-11.0) X10^3/uL RBC (4.0-5.2) X10^6/uL Hgb (12.0-16.0) g/dL Hct (36-46) % MCV (80-100) fL MCH (26-34) PG MCHC (30-36) % RDW (11.6-14.8) % Plt Count (150-400) X10^3/uL Neut % (Auto) (50-75) % Lymph % (Auto) (25-40) % [place] % (Auto) (3-14) % Eos % (Auto) (2-4) % Baso % (Auto) (0-2) % Neut # (Auto) (9922-1947) /uL Lymph # (Auto) (9406-2908) /uL [place] # (Auto) (0-900) /uL Eos # (Auto) (0-450) /uL Baso # (Auto) (0-100) /uL D-Dimer (<230) ng/mL ABG pH 7.47 H (7.35-7.45) ABG pCO2 29.8 L (35-45) mmHg ABG pO2 51 L (80-100) mmHg ABG HCO3 22 (22-26) mmol/L ABG Total CO2 22 (21-31) mmol/L ABG O2 Saturation 89 L (95-100) % ABG Base Excess -2.0 (-2-2) mmol/L FiO2 40 Sodium (137-145) mmol/L Potassium (3.4-5.1) mmol/L Chloride (98-107) mmol/L Carbon Dioxide (22-32) mmol/L BUN (7-17) mg/dL Creatinine (0.52-1.04) mg/dL Estimated GFR (>60) mL/min BUN/Creatinine Ratio (6-22) Glucose (80-110) mg/dL Lactate 1.4 (0.7-2.1) mmol/L Calcium (8.4-10.2) mg/dL Ferritin (11-264) ng/mL Total Bilirubin (0.2-1.3) mg/dL AST (14-36) IU/L ALT (<35) IU/L Alkaline Phosphatase (38-126) U/L Lactate Dehydrogenase (313-618) U/L Total Creatine Kinase (30-135) U/L CK-MB (CK-2) (<2.37) ng/mL CK-MB (CK-2) Rel Index (1.5-5.0) % Troponin I (0.01-0.034) ng/mL C-Reactive Protein (<1.0) mg/dL NT-Pro-B Natriuret Pep (<125) pg/mL Total Protein (6.3-8.2) g/dL Albumin (3.5-5.0) g/dL Globulin (1.7-4.1) g/dL Albumin/Globulin Ratio (1.0-2.8) Procalcitonin (<0.5) ng/mL SARS-CoV-2 (PCR) (Negative) Influenza A (RT-PCR) (NEGATIVE) Influenza B (RT-PCR) (NEGATIVE) Imaging Data Chest x-ray: Radiologist's Impression: [address] [address] XRay Report Signed Patient: Rupa Sullivan MR#: [id number] : 1955 Acct:[id number] Age/Sex: 65 / F Date of Service: 07/24/21 Loc: ED Accession Number: [id number] ?? Procedure: XR chest 1V Ordering Provider: Eric Reed D.O. PROCEDURE:? XR CHEST 1V ? INDICATIONS:? flu-like symptoms ? TECHNIQUE:? One view of the chest was acquired.? ? COMPARISON:? [facility], TREY, XR CHEST 2V, 07/23/2018, 17:42. ? FINDINGS:? ? Surgical changes and devices:? Partially visualized left shoulder arthroplasty. ? Lungs and pleura:? There is appearance of bilateral pulmonary opacities. ? Mediastinum:? Mediastinal contours appear normal.? Heart size is enlarged. ? Bones and chest wall:? No suspicious bony lesions.? Overlying soft tissues appear unremarkable.? ? IMPRESSION:? Bilateral pulmonary opacities suspicious for pneumonia.? Areas of superimposed edema cannot be excluded. ? ? Dictated by: Arabella Valdez M.D. on 07/24/2021 at 16:05 ? ? Approved by: Arabella Valdez M.D. on 07/24/2021 at 16:05?? ECG Data Attestation: I personally reviewed and interpreted this ECG as follows: Interpretation: Sinus rhythm Ventricular rate 83 Normal axis Normal QRS Normal QTC No ST T wave changes MDM Narrative Medical decision making narrative: Patient was hypoxic on room air upon arrival. She did improve with oxygen by nasal cannula. Her ABG does show hypoxia she was placed on high-flow nasal cannula for her work of breathing. Chest x-ray is consistent with COVID. Labs consistent with COVID. Discussed the case with Dr. Drake internal medicine will admit for further evaluation and treatment. I discussed this with the patient as well. She expressed understanding and agreement. Discharge Plan Departure Patient Disposition: Admitted As Inpatient Clinical Impression: COVID-19, Hypoxia Admit Date/Time: 07/24/21 16:19 Admit Provider: Mik Drake
[2021-07-24 14:53] LABS: Add Manual Diff / Slide Review NO; Basophils Absolute Auto 0 /uL (0-100); Basophils Percent Auto 0.3 % (0-2); Eosinophils Absolute Auto 0 /uL (0-450); Hematocrit 42.1 % (36-46); Hemoglobin 14.2 g/dL (12.0-16.0); Lymphocytes Absolute Auto 800 /uL (1100-4500); Lymphocytes Percent Auto 20.8 % (25-40); Mean Corpuscular HGB Conc 33.6 % (30-36); Mean Corpuscular Hemoglobin 30.9 PG (26-34); Monocytes Absolute Auto 200 /uL (0-900); Monocytes Percent Auto 5.6 % (3-14); Neutrophils Absolute Auto 2900 /uL (1500-7000); Neutrophils Percent Auto 73.3 % (50-75); Platelet Count 171 X10^3/uL (150-400); Red Blood Cell Count 4.58 X10^6/uL (4.0-5.2); Red Cell Distribution Width 12.8 % (11.6-14.8); White Blood Cell Count 3.9 X10^3/uL (4.5-11.0)
[2021-07-24] MEDS: SODIUM CHLORIDE 0.9% 1,000 ML 125 ML IV ×2 (14:55→18:18)
--- NOTE | 2021-07-24 15:00 | PC.NURSE ---
unvaccinated, daughter in ICU @ [facility] w/ Covid, son recovered from Covid recently.
[2021-07-24 15:02] LABS: D Dimer 744 ng/mL (<230)
[2021-07-24 15:03] LABS: Lactate (Lactic Acid) 1.4 mmol/L (0.7-2.1)
[2021-07-24 15:07] LABS: Alanine Aminotransferase 43 IU/L (<35); Albumin 3.6 g/dL (3.5-5.0); Albumin Globulin Ratio 1.2 (1.0-2.8); Alkaline Phosphatase 103 U/L (38-126); Aspartate Aminotransferase 96 IU/L (14-36); BUN Creatinine Ratio 33.3 (6-22); Bilirubin Total 0.7 mg/dL (0.2-1.3); Blood Urea Nitrogen 17 mg/dL (7-17); Calcium 8.9 mg/dL (8.4-10.2); Carbon Dioxide 25 mmol/L (22-32); Chloride 109 mmol/L (98-107); Creatine Kinase 110 U/L (30-135); Estimated Glomerular Filt Rate > 60.0 mL/min (>60); Globulin 2.9 g/dL (1.7-4.1); Glucose 123 mg/dL (80-110); Lactate Dehydrogenase 1492 U/L (313-618); Potassium 4.3 mmol/L (3.4-5.1); Sodium 140 mmol/L (137-145); Total Protein 6.5 g/dL (6.3-8.2)
[2021-07-24 15:17] LABS: NT-proBNP (BNP-Adult 18+) 322 pg/mL (<125); Troponin I < 0.012 ng/mL (0.01-0.034)
[2021-07-24 15:18] LABS: Influenza A - CEPHEID Flu A NEGATIVE (NEGATIVE); Influenza B - CEPHEID Flu B NEGATIVE (NEGATIVE)
[2021-07-24 15:19] LABS: C-Reactive Protein Quant 24.2 mg/dL (<1.0)
[2021-07-24 15:20] LABS: CKMB % Relative Index 1.3 % (1.5-5.0); Creatine Kinase MB 1.39 ng/mL (<2.37)
[2021-07-24 15:22] LABS: Procalcitonin 0.12 ng/mL (<0.5)
[2021-07-24 15:36] LABS: HCO3 ABG 22 mmol/L (22-26); PCO2 ABG 29.8 mmHg (35-45); PO2 ABG 51 mmHg (80-100); pH ABG 7.47 (7.35-7.45)
[2021-07-24 15:37] LABS: Oxygen Saturation ABG 89 % (95-100); TCO2 ABG 22 mmol/L (21-31)
[2021-07-24 15:39] LABS: Fractionated Inspired Oxygen 40
[2021-07-24 16:03] LABS: COVID19 - ADMIT (NP swab/PCR) POSITIVE (Negative)
[2021-07-24 16:29] LABS: Ferritin 980 ng/mL (11-264)
[2021-07-24 16:31] LABS: HEMOLYSIS 189 (0-50)
[2021-07-24] MEDS: DEXAMETHASONE 10 MG/ML VIAL IV (16:43)
[2021-07-24] MEDS: REMDESIVIR 200 MG in SODIUM CHLORIDE 0.9% 210 ML 250 ML IV (16:43)
[2021-07-24] MEDS: SODIUM CHLORIDE 0.9% 250 ML 21 ML IV (17:52)
--- NOTE | 2021-07-24 17:59 | P.HP_ITS ---
History of Present Illness History of Present Illness Date Patient Seen: 07/24/21 Time Patient Seen: 17:30 Date of Onset of Symptoms: 07/13/21 Chief complaint: sob Narrative: Patient is 65-year-old female with history of obesity, diet-control led type 2 diabetes, iron deficiency anemia, subclinical hyperthyroidism, osteoarthritis, remote history of pulmonary embolism in 2000 who started feeling sick about 10 days ago. She is not vaccinated for COVID. Her son who lives with her recently had COVID and daughter is currently hospitalized at [facility] with COVID. Patient reports progressive shortness of breath since onset of illness. Over the past week she has been short of breath at rest and with any activity. She has additional symptoms of headache, myalgias, cough and diarrhea. She also notes decreased appetite and food intake and feels dehydrated. She is unclear about fever as does not have a thermometer at home. Her O2 sat was in the low 80s with EMS and 84% room air in the ED. she was initially on non-rebreather by EMS. They tried her on nasal cannula in the ED but she was quite tachypneic and she was switched to high-flow nasal cannula. She comes to the floor on high-flow 35 L with 40% FiO2. Her ABG pH 7.47, pCO2 30, PO2 51, base excess-2 on 40% FiO2. Chest x-ray showed bilateral pulmonary opacities consistent with COVID pneumonia. COVID PCR was positive, influenza negative. Additionally she has mild elevation of liver enzymes, ferritin 980, LDH 1452, CRP 24, elevated D-dimer 744. Patient History Medical History (Updated 07/24/21 @ 18:09 by Mik Drake MD) Bunion of great toe of left foot (01/28/16) Carpal tunnel syndrome of right wrist (12/25/17) Chickenpox (Unknown) Depression (1992) Diabetes (Unknown) Environmental allergies Fibromyalgia (Unknown) Fractures (Unknown) Glaucoma (Unknown) H/O deep venous thrombosis (Unknown) Hair loss Hyperthyroidism Iron deficiency Irritable bowel syndrome (Unknown) Itchy scalp Lipoma of right upper extremity (05/20/16) Low back pain (Unknown) Lupus (Unknown) Migraines (Unknown) Pulmonary embolism Surgical History (Updated 05/04/21 @ 14:58 by Jadiel Morrison MD) H/O elbow surgery (2011) H/O shoulder surgery (2012) Family & Social History Family History Father Age: 85 Lung cancer Diabetes 1.5, managed as type 2 Heart disease Social History: Former smoker. No Etoh. Tobacco & Substance use: Smoking Status Former smoker Meds Home Medications and Allergies Home Medications Medication Instructions Recorded Confirmed Type naproxen 500 mg tablet 500 mg PO BID PRN #60 tab 09/17/20 07/24/21 Rx ferrous sulfate 325 mg (65 mg 325 mg PO DAILY #30 tab 03/19/21 07/24/21 Rx iron) tablet,delayed release Allergies Allergy/AdvReac Type Severity Reaction Status Date / Time amoxicillin [AMOXICILLIN] Allergy Unknown Verified 07/24/21 14:51 azelastine [AZELASTINE] AdvReac Severe BITTER Verified 07/24/21 14:51 HORRIBLE AFTER TASTE THAT TOOK 1 1/2 DAYS TO STOP codeine [CODEINE] AdvReac Mild headache Verified 07/24/21 14:51 fluticasone [From FLONASE] AdvReac Mild Nose bleeds Verified 07/24/21 14:51 hydrocodone [From VICODIN] AdvReac Mild constipatio Verified 07/24/21 14:51 n Review of Systems Review of Systems Narrative: Positive for shoulder arthritis pain. Other joint pains and myalgias. Otherwise complete ROS negative except as noted in HPI Exam Vital Signs (past 8 hours): - 07/24/21 14:30 07/24/21 14:40 07/24/21 14:51 Temperature 98.4 F Pulse Rate 80 80 80 Respiratory Rate 29 H 35 H 33 H Blood Pressure 142/66 H 125/60 Pulse Oximetry 84 L 92 95 07/24/21 15:00 07/24/21 15:10 07/24/21 15:20 Temperature Pulse Rate 80 80 78 Respiratory Rate 31 H 35 H 35 H Blood Pressure 125/66 131/72 129/63 Pulse Oximetry 94 93 96 07/24/21 15:30 07/24/21 15:40 07/24/21 15:50 Temperature Pulse Rate 79 77 79 Respiratory Rate 36 H 37 H 28 H Blood Pressure 121/65 135/70 136/63 Pulse Oximetry 96 97 95 07/24/21 16:00 07/24/21 16:10 07/24/21 16:20 Temperature Pulse Rate 76 79 78 Respiratory Rate 14 30 H 31 H Blood Pressure 130/60 134/65 147/74 H Pulse Oximetry 98 93 91 07/24/21 16:30 07/24/21 16:40 07/24/21 16:50 Temperature Pulse Rate 80 80 79 Respiratory Rate 33 H 34 H 33 H Blood Pressure 137/63 137/64 157/66 H Pulse Oximetry 90 L 90 L 90 L 07/24/21 17:00 07/24/21 17:49 Temperature 98.5 F Pulse Rate 80 82 Respiratory Rate 37 H 28 H Blood Pressure 130/75 122/58 L Pulse Oximetry 91 86 L Fraction of Inspired Oxygen 40 Oxygen Delivery Method High Flow Nasal Cannula Oxygen Flow Rate 35 Narrative Exam Narrative: General: Alert female with mildly labored breathing respiratory rate 30 HEENT: Pupils equal, anicteric Neck: No lymphadenopathy Lungs: Diminished bilaterally Heart: Distant S1 and S2, regular rhythm Abdomen: Diffuse mild nonspecific tenderness, no HSM palpated Extremities: Warm, no edema Neurological: Oriented, mentating well, affect appropriate, speech normal, nonfocal exam Objective Labs Result Diagrams: 07/24/21 14:45 07/24/21 14:45 Labs: Laboratory Results - last 24 hr 07/24/21 07/24/21 07/24/21 14:31 14:31 14:45 WBC RBC Hgb Hct MCV MCH MCHC RDW Plt Count Neut % (Auto) Lymph % (Auto) [place] % (Auto) Eos % (Auto) Baso % (Auto) Neut # (Auto) Lymph # (Auto) [place] # (Auto) Eos # (Auto) Baso # (Auto) D-Dimer 744 H ABG pH ABG pCO2 ABG pO2 ABG HCO3 ABG Total CO2 ABG O2 Saturation ABG Base Excess FiO2 Sodium Potassium Chloride Carbon Dioxide BUN Creatinine Estimated GFR BUN/Creatinine Ratio Glucose Lactate Calcium Ferritin Total Bilirubin AST ALT Alkaline Phosphatase Lactate Dehydrogenase Total Creatine Kinase CK-MB (CK-2) CK-MB (CK-2) Rel Index Troponin I C-Reactive Protein NT-Pro-B Natriuret Pep Total Protein Albumin Globulin Albumin/Globulin Ratio Procalcitonin SARS-CoV-2 (PCR) Positive H Influenza A (RT-PCR) Flu a negative Influenza B (RT-PCR) Flu b negative 07/24/21 07/24/21 07/24/21 14:45 14:45 14:45 WBC 3.9 L RBC 4.58 Hgb 14.2 Hct 42.1 MCV 92.0 MCH 30.9 MCHC 33.6 RDW 12.8 Plt Count 171 Neut % (Auto) 73.3 Lymph % (Auto) 20.8 L [place] % (Auto) 5.6 Eos % (Auto) 0.0 L Baso % (Auto) 0.3 Neut # (Auto) 2900 Lymph # (Auto) 800 L [place] # (Auto) 200 Eos # (Auto) 0 Baso # (Auto) 0 D-Dimer ABG pH ABG pCO2 ABG pO2 ABG HCO3 ABG Total CO2 ABG O2 Saturation ABG Base Excess FiO2 Sodium 140 Potassium 4.3 Chloride 109 H Carbon Dioxide 25 BUN 17 Creatinine 0.51 L Estimated GFR > 60.0 BUN/Creatinine Ratio 33.3 H Glucose 123 H Lactate Calcium 8.9 Ferritin 980 H Total Bilirubin 0.7 AST 96 H ALT 43 H Alkaline Phosphatase 103 Lactate Dehydrogenase 1492 H Total Creatine Kinase 110 CK-MB (CK-2) 1.39 CK-MB (CK-2) Rel Index 1.3 L Troponin I < 0.012 C-Reactive Protein 24.2 H NT-Pro-B Natriuret Pep 322 H Total Protein 6.5 Albumin 3.6 Globulin 2.9 Albumin/Globulin Ratio 1.2 Procalcitonin 0.12 SARS-CoV-2 (PCR) Influenza A (RT-PCR) Influenza B (RT-PCR) 07/24/21 07/24/21 14:45 15:09 WBC RBC Hgb Hct MCV MCH MCHC RDW Plt Count Neut % (Auto) Lymph % (Auto) [place] % (Auto) Eos % (Auto) Baso % (Auto) Neut # (Auto) Lymph # (Auto) [place] # (Auto) Eos # (Auto) Baso # (Auto) D-Dimer ABG pH 7.47 H ABG pCO2 29.8 L ABG pO2 51 L ABG HCO3 22 ABG Total CO2 22 ABG O2 Saturation 89 L ABG Base Excess -2.0 FiO2 40 Sodium Potassium Chloride Carbon Dioxide BUN Creatinine Estimated GFR BUN/Creatinine Ratio Glucose Lactate 1.4 Calcium Ferritin Total Bilirubin AST ALT Alkaline Phosphatase Lactate Dehydrogenase Total Creatine Kinase CK-MB (CK-2) CK-MB (CK-2) Rel Index Troponin I C-Reactive Protein NT-Pro-B Natriuret Pep Total Protein Albumin Globulin Albumin/Globulin Ratio Procalcitonin SARS-CoV-2 (PCR) Influenza A (RT-PCR) Influenza B (RT-PCR) Assessment & Plan Assessment & Plan narrative: 1. COVID-19 pneumonia with acute hypoxic respiratory failure -patient currently on high-flow nasal cannula 35 L and 40% FiO2 with respiratory rate in 30s and sat 93% -elevated inflammatory markers and D-dimer -remdesivir 200 mg x 1 in the ED, then 100 mg IV q.d. x4 days -dexamethasone 6 mg IV q.d. times 10 days -continue high-flow cannula titrating as needed -prone positioning if tolerated -patient states she does not want to be put on ventilator to save her life 2. Diet-controlled type 2 diabetes -last A1c 5.9 in April 2021 -CBG a.c. HS with low-dose sliding scale -monitor for acute hyperglycemia on dexamethasone 3. Severe obesity, BMI 45 -also has remote history of pulmonary embolism, elevated D-dimer -use Lovenox 40 mg subQ b.i.d. for DVT prophylaxis 4. Osteoarthritis -takes tramadol and Tylenol at home which are ordered for patient as needed 5. History of subclinical hyperthyroidism -last TSH 0.05, free T4 1.46 normal in April 2021 Patient is critically ill and seen in ICU, total critical care time of 60 minutes for evaluation and management of respiratory failure associated with COVID pneumonia. Code status: DNR, does not want intubation DVT prophylaxis: Lovenox 40 mg subQ b.i.d. Time Spent With Patient Critical Care time: I spent a total of [] minutes of critical care time on this patient's care today; this time is exclusive of procedural time.
--- NOTE | 2021-07-24 18:11 | PC.NURSE ---
Addendum entered by Trinidad Quigley R.N. 07/24/21 22:26: Precedex started per order. Pt. tolerating well. Addendum entered by Trinidad Quigley R.N. 07/24/21 21:46: Because patient is unable to tolerate prone or side-lying position, bed is being tilted side to side. Original Note: Admission: Report received from ED RN. Pt to ICU room 231(reverse airflow isolation) at 1745, accompanied by RN and RT. Patient is alert and oriented. Transferred to commode with standby assistance, unable to urinate. Transferred to bed with standby assist. Oxygen setting 40%/35 liters heated hi-elda oxygen. Oxygen sat ~90%. Pt. c/o difficulty breathing. RR ~30. Remdesivir infusing upon admission. Discussed the importance of proning for improving oxygenation. Pt. states she cannot prone or even lay on her side due to shoulder pain. Will continue to reinforce education. Denies pain other than chronic arthritic pain of shoulders. Patient state in presence of physician and RN that she does not want to be intubated. DNR/DNI. States she doesn't have a DPOA, but her daughter Carolyn is her caregiver and would ordinarily be the one to make decisions if the patient is unable; however, Carolyn is currently admitted to a different hospital with Covid. Therefore, pt's son Severiano will be our primary contact, per patient's wishes. Regular diet order, pt. eating light dinner. Oriented to call light, remote, bed controls.
[2021-07-24] MEDS: TRAMADOL 50 MG TABLET PO (18:18)
--- NOTE | 2021-07-24 20:21 | PM.EVENT ---
Event Note Event Note: Pt discussed w nursing staff during multidisciplinary rounds. Events noted. Unvaccinated obese female w COVID PNA. On HFNC 40% 30L. Sats low 90s. Remains tachypnic. She is DNR. Rec add Baricitinib to decadron and remdisivir Rec to add precedex for help with managing tachypnea Pt unable to prone or sleep on sides due to pain from arthritis. Cont BID lovenox for DVT prophylaxis.
[2021-07-24 20:41] LABS: Appearance Urine UA CLEAR; Bilirubin Urine UA NEGATIVE (NEGATIVE); Color Urine UA YELLOW; Glucose Urine UA NEGATIVE (Negative); Ketones Urine UA 1+ (NEGATIVE); Leukocyte Esterase Urine UA NEGATIVE (NEGATIVE); Nitrite Urine UA NEGATIVE (Negative); Occult Blood Urine UA NEGATIVE (Negative); Protein Urine UA 1+ (Negative); Urobilinogen Urine UA 0.2 E.U./dL (0.2)
[2021-07-24 20:43] LABS: pH Urine UA 5.5 (4.5-8.0)
[2021-07-24 20:51] LABS: Amorphous Sediment Urine 1+; Bacteria Urine Occasional (0-1); Culture Indicated Urine Cult Not Indicated; RBC Urine 0-1/HPF (0-5/HPF); Squamous Epithelial Cell Urine 0-1 /HPF (0-5/HPF); WBC Urine 1-5/HPF (0-5/HPF)
[2021-07-24] MEDS: ENOXAPARIN 40 MG/0.4 ML SYRINGE SUBCUT (21:07)
[2021-07-24] MEDS: ACETAMINOPHEN 325 MG TABLET 650 MG PO (21:08)
[2021-07-24] MEDS: SODIUM CHLORIDE 0.9% FLUSH 10 ML IV (21:09)
[2021-07-24] MEDS: INSULIN LISPRO 100 UNIT/ML 3ML VIAL SUBCUT (21:27)
[2021-07-24] MEDS: DEXMEDETOMIDINE HCL 400 MCG in SODIUM CHLORIDE 0.9% 96 ML 5.3 ML IV (21:54)
[2021-07-24] MEDS: BARICITINIB 2 MG TABLET 4 MG PO (21:56)
[2021-07-25] VITALS (31 sets, daily range): BP systolic 108–134; BP diastolic 56–74; PULSE 50–98; RESP 15–37; TEMP 36.3–36.9; O2SAT 87–95
[2021-07-25 05:27] LABS: Alanine Aminotransferase 41 IU/L (<35); Albumin 3.2 g/dL (3.5-5.0); Albumin Globulin Ratio 1.2 (1.0-2.8); Alkaline Phosphatase 107 U/L (38-126); Aspartate Aminotransferase 71 IU/L (14-36); BUN Creatinine Ratio 34.9 (6-22); Bilirubin Total 0.4 mg/dL (0.2-1.3); Blood Urea Nitrogen 15 mg/dL (7-17); Calcium 8.3 mg/dL (8.4-10.2); Carbon Dioxide 23 mmol/L (22-32); Chloride 113 mmol/L (98-107); Estimated Glomerular Filt Rate > 60.0 mL/min (>60); Globulin 2.7 g/dL (1.7-4.1); Glucose 223 mg/dL (80-110); HEMOLYSIS < 15 (0-50); Sodium 141 mmol/L (137-145); Total Protein 5.9 g/dL (6.3-8.2)
[2021-07-25 05:38] LABS: Hematocrit 42.8 % (36-46); Hemoglobin 14.4 g/dL (12.0-16.0); Mean Corpuscular HGB Conc 33.6 % (30-36); Mean Corpuscular Hemoglobin 30.8 PG (26-34); Mean Corpuscular Volume 91.7 fL (80-100); Platelet Count 175 X10^3/uL (150-400); Red Blood Cell Count 4.67 X10^6/uL (4.0-5.2); Red Cell Distribution Width 12.8 % (11.6-14.8)
[2021-07-25 05:55] LABS: White Blood Cell Count 1.9 X10^3/uL (4.5-11.0)
[2021-07-25 05:56] LABS: Add Manual Diff / Slide Review YES
[2021-07-25 07:18] LABS: Neutrophils Absolute Manual 1406 /uL (3000-5900); Total Cells Counted 50
[2021-07-25 07:21] LABS: RBC Morphology Normal Morphology
[2021-07-25] MEDS: INSULIN LISPRO 100 UNIT/ML 3ML VIAL SUBCUT ×4 (08:50→20:58)
[2021-07-25] MEDS: ENOXAPARIN 40 MG/0.4 ML SYRINGE SUBCUT ×2 (08:53→20:58)
[2021-07-25] MEDS: BISACODYL 5 MG TABLET PO (08:53)
[2021-07-25] MEDS: ACETAMINOPHEN 325 MG TABLET 650 MG PO ×2 (08:53→22:08)
[2021-07-25] MEDS: DEXAMETHASONE 10 MG/ML VIAL 6 MG IV (08:53)
[2021-07-25] MEDS: TRAMADOL 50 MG TABLET PO ×2 (09:22→22:08)
--- NOTE | 2021-07-25 11:05 | PM.PN.1 ---
Subjective Subjective Date Patient Seen: 07/25/21 Time Patient Seen: 08:00 Interval history: She says she feels slightly better. However she remains on high flow oxygen. She is short of breath at rest, she is coughing. Exam Vital Signs (past 8 hours): - 07/25/21 03:46 07/25/21 04:00 07/25/21 05:00 Temperature Pulse Rate 55 L 55 L 50 L Respiratory Rate 23 24 28 H Blood Pressure 123/62 122/66 122/61 Pulse Oximetry 90 L 90 L 89 L 07/25/21 05:50 07/25/21 06:00 07/25/21 07:00 Temperature Pulse Rate 54 L 57 L 52 L Respiratory Rate 26 H 30 H 25 H Blood Pressure 122/61 124/66 124/69 Pulse Oximetry 90 L 90 L 87 L 07/25/21 07:05 07/25/21 08:00 07/25/21 09:00 Temperature 98.2 F Pulse Rate 51 L 78 55 L Respiratory Rate 27 H 19 15 Blood Pressure 124/72 123/58 L Pulse Oximetry 88 L 88 L 90 L 07/25/21 09:05 07/25/21 09:25 07/25/21 09:55 Temperature Pulse Rate 68 50 L 60 Respiratory Rate 23 26 H 24 Blood Pressure Pulse Oximetry 92 95 90 L 07/25/21 10:00 Temperature Pulse Rate 78 Respiratory Rate 24 Blood Pressure Pulse Oximetry 90 L Fraction of Inspired Oxygen 0.40 Oxygen Delivery Method Heated High Flow Oxygen Flow Rate 40 Narrative Exam Narrative: General:? no aucte distress HEENT:? Pupils equal, anicteric Neck:? No lymphadenopathy Lungs:? Diminished bilaterally Heart: regular rhythm Abdomen:? Diffuse mild nonspecific tenderness, no organomegaly Extremities:? Warm, no edema Neurological:? Oriented, mentating well, affect appropriate, speech normal, nonfocal exam Objective Labs Result Diagrams: 07/25/21 04:45 07/25/21 04:45 Labs: Laboratory Results - last 24 hr 07/24/21 07/24/21 07/24/21 14:31 14:31 14:45 WBC RBC Hgb Hct MCV MCH MCHC RDW Plt Count Neut % (Auto) Lymph % (Auto) [place] % (Auto) Eos % (Auto) Baso % (Auto) Neut # (Auto) Lymph # (Auto) [place] # (Auto) Eos # (Auto) Baso # (Auto) Total Counted Seg Neutrophils % Band Neutrophils % Lymphocytes % (Manual) Monocytes % (Manual) Neutrophils # (Manual) RBC Morphology D-Dimer 744 H ABG pH ABG pCO2 ABG pO2 ABG HCO3 ABG Total CO2 ABG O2 Saturation ABG Base Excess FiO2 Sodium Potassium Chloride Carbon Dioxide BUN Creatinine Estimated GFR BUN/Creatinine Ratio Glucose Lactate Calcium Ferritin Total Bilirubin AST ALT Alkaline Phosphatase Lactate Dehydrogenase Total Creatine Kinase CK-MB (CK-2) CK-MB (CK-2) Rel Index Troponin I C-Reactive Protein NT-Pro-B Natriuret Pep Total Protein Albumin Globulin Albumin/Globulin Ratio Procalcitonin Urine Color Urine Appearance Urine pH Ur Specific [place] Urine Protein Urine Glucose (UA) Urine Ketones Urine Occult Blood Urine Nitrate Urine Bilirubin Urine Urobilinogen Ur Leukocyte Esterase Urine RBC Urine WBC Ur Squamous Epith Cells Amorphous Sediment Urine Bacteria Ur Culture Indicated? Nasal Screen MRSA (PCR) SARS-CoV-2 (PCR) Positive H Influenza A (RT-PCR) Flu a negative Influenza B (RT-PCR) Flu b negative 07/24/21 07/24/21 07/24/21 14:45 14:45 14:45 WBC 3.9 L RBC 4.58 Hgb 14.2 Hct 42.1 MCV 92.0 MCH 30.9 MCHC 33.6 RDW 12.8 Plt Count 171 Neut % (Auto) 73.3 Lymph % (Auto) 20.8 L [place] % (Auto) 5.6 Eos % (Auto) 0.0 L Baso % (Auto) 0.3 Neut # (Auto) 2900 Lymph # (Auto) 800 L [place] # (Auto) 200 Eos # (Auto) 0 Baso # (Auto) 0 Total Counted Seg Neutrophils % Band Neutrophils % Lymphocytes % (Manual) Monocytes % (Manual) Neutrophils # (Manual) RBC Morphology D-Dimer ABG pH ABG pCO2 ABG pO2 ABG HCO3 ABG Total CO2 ABG O2 Saturation ABG Base Excess FiO2 Sodium 140 Potassium 4.3 Chloride 109 H Carbon Dioxide 25 BUN 17 Creatinine 0.51 L Estimated GFR > 60.0 BUN/Creatinine Ratio 33.3 H Glucose 123 H Lactate Calcium 8.9 Ferritin 980 H Total Bilirubin 0.7 AST 96 H ALT 43 H Alkaline Phosphatase 103 Lactate Dehydrogenase 1492 H Total Creatine Kinase 110 CK-MB (CK-2) 1.39 CK-MB (CK-2) Rel Index 1.3 L Troponin I < 0.012 C-Reactive Protein 24.2 H NT-Pro-B Natriuret Pep 322 H Total Protein 6.5 Albumin 3.6 Globulin 2.9 Albumin/Globulin Ratio 1.2 Procalcitonin 0.12 Urine Color Urine Appearance Urine pH Ur Specific [place] Urine Protein Urine Glucose (UA) Urine Ketones Urine Occult Blood Urine Nitrate Urine Bilirubin Urine Urobilinogen Ur Leukocyte Esterase Urine RBC Urine WBC Ur Squamous Epith Cells Amorphous Sediment Urine Bacteria Ur Culture Indicated? Nasal Screen MRSA (PCR) SARS-CoV-2 (PCR) Influenza A (RT-PCR) Influenza B (RT-PCR) 07/24/21 07/24/21 07/24/21 14:45 15:09 17:45 WBC RBC Hgb Hct MCV MCH MCHC RDW Plt Count Neut % (Auto) Lymph % (Auto) [place] % (Auto) Eos % (Auto) Baso % (Auto) Neut # (Auto) Lymph # (Auto) [place] # (Auto) Eos # (Auto) Baso # (Auto) Total Counted Seg Neutrophils % Band Neutrophils % Lymphocytes % (Manual) Monocytes % (Manual) Neutrophils # (Manual) RBC Morphology D-Dimer ABG pH 7.47 H ABG pCO2 29.8 L ABG pO2 51 L ABG HCO3 22 ABG Total CO2 22 ABG O2 Saturation 89 L ABG Base Excess -2.0 FiO2 40 Sodium Potassium Chloride Carbon Dioxide BUN Creatinine Estimated GFR BUN/Creatinine Ratio Glucose Lactate 1.4 Calcium Ferritin Total Bilirubin AST ALT Alkaline Phosphatase Lactate Dehydrogenase Total Creatine Kinase CK-MB (CK-2) CK-MB (CK-2) Rel Index Troponin I C-Reactive Protein NT-Pro-B Natriuret Pep Total Protein Albumin Globulin Albumin/Globulin Ratio Procalcitonin Urine Color Urine Appearance Urine pH Ur Specific [place] Urine Protein Urine Glucose (UA) Urine Ketones Urine Occult Blood Urine Nitrate Urine Bilirubin Urine Urobilinogen Ur Leukocyte Esterase Urine RBC Urine WBC Ur Squamous Epith Cells Amorphous Sediment Urine Bacteria Ur Culture Indicated? Nasal Screen MRSA (PCR) Positive for mrsa H SARS-CoV-2 (PCR) Influenza A (RT-PCR) Influenza B (RT-PCR) 07/24/21 07/25/21 07/25/21 19:20 04:45 04:45 WBC 1.9 L* D RBC 4.67 Hgb 14.4 Hct 42.8 MCV 91.7 MCH 30.8 MCHC 33.6 RDW 12.8 Plt Count 175 Neut % (Auto) Not Reportable Lymph % (Auto) Not Reportable [place] % (Auto) Not Reportable Eos % (Auto) Not Reportable Baso % (Auto) Not Reportable Neut # (Auto) Lymph # (Auto) Not Reportable [place] # (Auto) Not Reportable Eos # (Auto) Baso # (Auto) Not Reportable Total Counted 50 Seg Neutrophils % 70.0 Band Neutrophils % 4.0 Lymphocytes % (Manual) 20.0 L Monocytes % (Manual) 6.0 Neutrophils # (Manual) 1406 L RBC Morphology Normal morphology D-Dimer ABG pH ABG pCO2 ABG pO2 ABG HCO3 ABG Total CO2 ABG O2 Saturation ABG Base Excess FiO2 Sodium 141 Potassium 4.0 Chloride 113 H Carbon Dioxide 23 BUN 15 Creatinine 0.43 L Estimated GFR > 60.0 BUN/Creatinine Ratio 34.9 H Glucose 223 H D Lactate Calcium 8.3 L Ferritin Total Bilirubin 0.4 AST 71 H ALT 41 H Alkaline Phosphatase 107 Lactate Dehydrogenase Total Creatine Kinase CK-MB (CK-2) CK-MB (CK-2) Rel Index Troponin I C-Reactive Protein NT-Pro-B Natriuret Pep Total Protein 5.9 L Albumin 3.2 L Globulin 2.7 Albumin/Globulin Ratio 1.2 Procalcitonin Urine Color Yellow Urine Appearance Clear Urine pH 5.5 Ur Specific [place] 1.010 Urine Protein 1+ H Urine Glucose (UA) Negative Urine Ketones 1+ H Urine Occult Blood Negative Urine Nitrate Negative Urine Bilirubin Negative Urine Urobilinogen 0.2 Ur Leukocyte Esterase Negative Urine RBC 0-1/hpf Urine WBC 1-5/hpf Ur Squamous Epith Cells 0-1 /hpf Amorphous Sediment 1+ Urine Bacteria Occasional (0-1) Ur Culture Indicated? Cult not indicated Nasal Screen MRSA (PCR) SARS-CoV-2 (PCR) Influenza A (RT-PCR) Influenza B (RT-PCR) [facility] Medical History (Updated 07/24/21 @ 18:09 by Mik Drake MD) Bunion of great toe of left foot (01/28/16) Carpal tunnel syndrome of right wrist (12/25/17) Chickenpox (Unknown) Depression (1992) Diabetes (Unknown) Environmental allergies Fibromyalgia (Unknown) Fractures (Unknown) Glaucoma (Unknown) H/O deep venous thrombosis (Unknown) Hair loss Hyperthyroidism Iron deficiency Irritable bowel syndrome (Unknown) Itchy scalp Lipoma of right upper extremity (05/20/16) Low back pain (Unknown) Lupus (Unknown) Migraines (Unknown) Pulmonary embolism Surgical History (Updated 05/04/21 @ 14:58 by Jadiel Morrison MD) H/O elbow surgery (2012) H/O shoulder surgery (2013) Family History Father Age: 85 Lung cancer Diabetes 1.5, managed as type 2 Heart disease Social History household members: family Smoking Status: Former smoker alcohol intake: never Assessment & Plan Assessment & Plan narrative: 1. COVID-19 pneumonia with acute hypoxic respiratory failure -patient currently on high-flow nasal cannula 40 L and 40% FiO2 -elevated inflammatory markers and D-dimer -remdesivir 200 mg x 1 in the ED, then 100 mg IV daily -dexamethasone 6 mg IV q.d. times 10 days -baracitinib daily ordered -precedex trialed to help with breathing, did not seem to change, now dc'd -continue high-flow cannula titrating as needed -prone positioning if tolerated -patient states she does not want to be put on ventilator to save her life 2. Diet-controlled type 2 diabetes -last A1c 5.9 in April 2021 -CBG a.c. HS with low-dose sliding scale -monitor for acute hyperglycemia on dexamethasone 3. Severe obesity, BMI 45 -also has remote history of pulmonary embolism, elevated D-dimer -use Lovenox 40 mg subQ b.i.d. for DVT prophylaxis 4.? Osteoarthritis -takes tramadol and Tylenol at home which are ordered for patient as needed 5. History of subclinical hyperthyroidism -last TSH 0.05, free T4 1.46 normal in April 2021 Patient is critically ill and seen in ICU Code status: DNR, does not want intubation DVT prophylaxis: Lovenox 40 mg subQ b.i.d. Proxy: Carolyn Quigley [phone] Time Spent With Patient Critical Care time: I spent a total of [] minutes of critical care time on this patient's care today; this time is exclusive of procedural time.
--- NOTE | 2021-07-25 12:33 | CM.IDA ---
Initial DCP Assessment Note Pt is a 65 yo female, resident of [place], arrives via EMS w/SOB/dyspnea found to have COVID-19 pneumonia with acute hypoxic respiratory failure PCP: Jadiel Morrison Payer: Melonie/SHERRI According to chart review, patient currently on high-flow nasal cannula 40 L and 40% FiO2, patient having a difficult time proning d/t chronic pain. Patient has chosen to be DNR/DNI, no intubation. At this time, following closely as medical POC unfolds. Patient comes from home w/family and is expected to return upon medical DC. Will plan to speak w/patient when she can tolerate. Following closely w/hospitalist and nursing team as any DC needs or concerns arise. DEBORAH Mercer Discharge Planning/Care Management CM Discharge Assessment Start: 07/25/21 11:51 Freq: Status: Active Protocol: Document 07/25/21 11:51 MARCELLUS (Rec: 07/25/21 12:29 [id number]) Discharge Planning Assessment Assigned Screwhead Polisher DEBORAH Mercer DPOA/Assigned Designee Name Quocamita Leon currently admitted at [facility] for COVID+ Contact Information Contact son Severiano Medina, Advance Directives? No History Provided By Medical Record Prior Living Arrangements Apartment/Condo Household Members family Comment Disabled Independent with ADL's Yes Is patient alert and oriented? Yes Barriers to Discharge Yes Comment Patient remains medically fragile d/t COVID-19 pneumonia . Likely home w/family Discharge Plan Home Transportation Arrangement Family Referrals Initiated None needed Additional Comment At this time
[2021-07-25 15:34] LABS: Hematocrit 42.2 % (36-46); Hemoglobin 14.3 g/dL (12.0-16.0); Mean Corpuscular HGB Conc 33.9 % (30-36); Mean Corpuscular Hemoglobin 30.8 PG (26-34); Platelet Count 204 X10^3/uL (150-400); Red Blood Cell Count 4.64 X10^6/uL (4.0-5.2); Red Cell Distribution Width 12.9 % (11.6-14.8); White Blood Cell Count 3.4 X10^3/uL (4.5-11.0)
[2021-07-25] MEDS: REMDESIVIR 100 MG in SODIUM CHLORIDE 0.9% 230 ML 250 ML IV (16:16)
--- NOTE | 2021-07-25 16:45 | DIET.CONS ---
Addendum entered by Alize Gallagher 07/25/21 16:56: pt at risk for biotin deficiency secondary to daily raw egg intake. Original Note: Dietary Consultation Note Admission Date: 07/24/2021 16:19 Assessment: 65y F admitted for covid pneumonia referred to nutrition regarding her specialized diet at home. RD reached pt via phone call. Pt had lost 62# prior to the global pandemic then regained some of it so has been following a diet at home to continue her weight loss efforts. Usual Day: B: 16oz green tea containing collagen, Amazing Grass superfoods powder, beet powder, probiotic powder, raw egg L: skips, only drinks green or peppermint tea D: fish with vegetables (tuna, cod, salmon c raw or cooked veggies), chamomile tea c soymilk Pt does not eat PORK. Pt agrees to the following menu during hospitalization which can change as pt desires. B: green tea c Orgain protein powder, peppermint tea, carton soymilk, hard boiled egg L: Ensure Max c triple zero yogurt, green tea D: salmon c double veggies, chamomile tea, carton soymilk Ht: 152.4 cm Wt: 106 kg BMI: 45.6 MNA: 10 Martinez Score: 16 Diet: 07/24/21 Dinner General (Regular) Diet Diet Modifications: 07/25/21 Breakfast Carbohydrate Consistent Diet Diet Modifications: Safety Tray needed?: No Carbohydrate level: Medium (3 CHO) Percent of last meal consumed (last 48h) Percent Meal Consumed 25% 07/25/21 12:50 Percent Meal Consumed 25% 07/25/21 08:45 Labs: RBC 4.64 X10^6/uL (4.0-5.2) 07/25/21 15:07 Hgb 14.3 g/dL (12.0-16.0) 07/25/21 15:07 Hct 42.2 % (36-46) 07/25/21 15:07 Creatinine 0.43 mg/dL (0.52-1.04) L 07/25/21 04:45 Lactate 1.4 mmol/L (0.7-2.1) 07/24/21 14:45 Ferritin 980 ng/mL (11-264) H 07/24/21 14:45 NT-Pro-B Natriuret Pep 322 pg/mL (<125) H 07/24/21 14:45 Nutrition Diagnosis: inadequate protein intake r/t increased protein needs secondary to covid pneumonia aeb pts POs at hospital 25%, pt consumes specialty foods, pt on heated high flow oxygen. Interventions: 1. Discussed pts home menu and accommodations that can be made at the hospital while meeting pts protein needs. 2. Educated pt on importance of adequate kcals and protein while hospitalized with covid to support healing and immune function. Monitoring/Evaluations: POs
--- NOTE | 2021-07-25 17:32 | RT ---
Patient not on phone with son during this encounter and much more receptive to discussing deep breathing. Son seems to have anti-healthcare viewpoints that rile patient up and that made instruction of IS teaching near impossible last encounter. Patient and I discussed IS, alveolar expansion, gas exchange mechanics, her liter and oxygen flow settings and how they relate to normal breathing. Patient was very interested in learning about all this and ways she can help herself get better sooner. Very productive educational encounter and patient promises to use IS. Isabel Pickard, AIR QUALITY MANAGER
--- NOTE | 2021-07-25 18:28 | PC.NURSE ---
Evening shift note: A/) x 3 sitting up in bed without distress, VSS, currently on 40L/45% O2 saturation between 87-94%. Pt non-compliant with proning, uses IS as demonstrated. Currently IV Remdesivir infusing into R PIV as ordered. Current WBC 3.4 provider aware, no new orders at this time. Ewing catheter patent and draining, clear yellow urine. Pt able to use call light appropriately, bed low and locked, will continue to monitor.
--- NOTE | 2021-07-25 20:34 | PM.EVENT ---
Event Note Event Note: Patient discussed w nursing staff during rounds. Pt was on HFNC -> now on 6L due to discomfort with HFNC. She remains on decadron and remdesivir. For unclear reasons Baricitinib was discontinued automatically, thus I reordered it. d/w bedside nurse who will pass on to the day team and tell pharmacist. OK to be on 6L, can wean to keep sats in low 90s
[2021-07-25] MEDS: INSULIN GLARGINE 100 UNIT/ML 3ML PEN 10 UNIT SUBCUT (20:58)
[2021-07-25] MEDS: MAGNESIUM HYDROXIDE 30 ML UDC PO (20:58)
[2021-07-25] MEDS: BARICITINIB 2 MG TABLET 4 MG PO (21:20)
[2021-07-26] VITALS (10 sets, daily range): BP systolic 109–133; BP diastolic 57–66; PULSE 50–70; RESP 15–27; TEMP 37.1; O2SAT 89–92
[2021-07-26] MEDS: ONDANSETRON 4 MG/2 ML INJ IV
[2021-07-26] MEDS: MAGNESIUM HYDROXIDE 30 ML UDC PO (08:22)
[2021-07-26] MEDS: DEXAMETHASONE 10 MG/ML VIAL 6 MG IV (08:22)
[2021-07-26] MEDS: ENOXAPARIN 40 MG/0.4 ML SYRINGE SUBCUT (08:23)
[2021-07-26] MEDS: FERROUS SULFATE 325 MG TABLET PO (08:23)
[2021-07-26] MEDS: INSULIN LISPRO 100 UNIT/ML 3ML VIAL SUBCUT (09:57)
[2021-07-26] MEDS: BISACODYL 5 MG TABLET PO (10:00)
[2021-07-26] MEDS: OXYMETAZOLINE NASAL SPRAY 15 ML 2 SPRAYS NASAL (10:30)
[2021-07-26] MEDS: SIMETHICONE 80 MG TABLET PO (10:30)
--- NOTE | 2021-07-26 11:30 | PC.NURSE ---
Addendum entered by Nazia Biswas R.N. 07/26/21 14:42: Tramadol sent to [facility] in [place] per request. Addendum entered by Nazia Biswas R.N. 07/26/21 14:27: Void at [facility], able tolerate 4L of 02 with mobility. Addendum entered by Nazia Biswas R.N. 07/26/21 14:25: DC orders obtained PIV x2 Tele dc. Ride called, 1600 orange picker machine operator. Original Note: Pt is on 3L O2 via nc. No c/o of SOB at rest, Spo2 88-92 RT to discuss continued weaning and potential to work to dc with home o2. Ewing removed, PRN Simethicone given. Update to Dr Chavez.
--- NOTE | 2021-07-26 13:00 | P.DS_ITS ---
History of Present Illness History of Present Illness Date Patient Seen: 07/26/21 Time Patient Seen: 13:00 Chief complaint: sob Narrative: Per Dr. Mijares, Patient is 65-year-old female with history of obesity, diet-controlled type 2 diabetes, iron deficiency anemia, subclinical hyperthyroidism, osteoarthritis, remote history of pulmonary embolism in 2000 who started feeling sick about 10 days ago.? She is not vaccinated for COVID.? Her son who lives with her recently had COVID and daughter is currently hospitalized at [facility] with COVID.? Patient reports progressive shortness of breath since onset of illness.? Over the past week she has been short of breath at rest and with any activity.? She has additional symptoms of headache, myalgias, cough and diarrhea.? She also notes decreased appetite and food intake and feels dehydrated.? She is unclear about fever as does not have a thermometer at home.? Her O2 sat was in the low 80s with EMS and 84% room air in the ED. she was initially on non-rebreather by EMS.? They tried her on nasal cannula in the ED but she was quite tachypneic and she was switched to high-flow nasal cannula.? She comes to the floor on high- flow 35 L with 40% FiO2.? Her ABG pH 7.47, pCO2 30, PO2 51, base excess-2 on 40% FiO2.? Chest x-ray showed bilateral pulmonary opacities consistent with COVID pneumonia.? COVID PCR was positive, influenza negative.? Additionally she has mild elevation of liver enzymes, ferritin 980, LDH 1452, CRP 24, elevated D- dimer 744. Discharge Providers Provider Date of admission: 07/24/21 16:19 Discharge Date: 07/26/21 Primary care physician: Jadiel Morrison MD Consults: 07/24/21 18:03 Consult to Respiratory Therapy Evaluate & Treat Comment: Physician Instructions: Evaluate and treat 07/24/21 19:58 Consult to Dietitian, Adult Routine Comment: Reason For Exam: morbid obesity, recent weight loss Consult to Pastoral Services Routine Comment: per patient request Discharge provider: Benja Chavez DO Summary Hospital Course Discharge Diagnosis: 1. COVID-19 pneumonia with acute hypoxic respiratory failure 2. Diet-controlled type 2 diabetes, with hyperglycemia due to steroids 3. Severe obesity, BMI 45 4.? Osteoarthritis 5. History of subclinical hyperthyroidism Hospital Course: This was a 65-year-old female with a past medical history of diet-controlled type 2 diabetes, obesity, osteoarthritis, and subclinical hyperthyroidism who was admitted with acute respiratory failure secondary to COVID-19. She was initially on heated high-flow nasal cannula and was started on remdesivir, Decadron, and baricitinib. She slowly improved over the course of her stay, and on the day of discharge she was down to 3 L. this was fairly shortly after her admission and the patient was wanting to go home. She was co unseled on possibly staying longer given her continued hypoxia for the possible benefit of steroid and baricitinib therapy. The patient however, given improving oxygen, elected for discharge home. She was instructed to obtain home pulse oximeter and return to the ER if her O2 requirements worsened. She was discharged home with home oxygen, currently down to 3L at rest. Time Spent with Patient Time spent: Greater than 30 minutes Exam Vital Signs (past 8 hours): - 07/26/21 06:00 07/26/21 08:00 07/26/21 10:59 Temperature Pulse Rate 50 L 56 L Respiratory Rate 26 H 21 Blood Pressure 118/59 L 124/61 Pulse Oximetry 91 89 L 92 07/26/21 11:56 Temperature 98.8 F Pulse Rate 67 Respiratory Rate 22 Blood Pressure 118/62 Pulse Oximetry 92 Fraction of Inspired Oxygen 0.40 Oxygen Delivery Method Nasal Cannula Oxygen Flow Rate 6 Narrative Exam Narrative: ?General:? no aucte distress HEENT:? Pupils equal, anicteric Neck:? No lymphadenopathy Lungs:? Diminished bilaterally Heart: regular rhythm Abdomen:? Diffuse mild nonspecific tenderness, no organomegaly Extremities:? Warm, no edema Neurological:? Oriented, mentating well, affect appropriate, speech normal, nonfocal exam Objective Labs Result Diagrams: 07/25/21 15:07 07/25/21 04:45 Labs: Laboratory Results - last 24 hr 07/25/21 15:07 WBC 3.4 L D RBC 4.64 Hgb 14.3 Hct 42.2 MCV 91.0 MCH 30.8 MCHC 33.9 RDW 12.9 Plt Count 204 PFSH Medical History (Updated 07/24/21 @ 18:09 by Mik Drake MD) Bunion of great toe of left foot (01/28/16) Carpal tunnel syndrome of right wrist (12/25/17) Chickenpox (Unknown) Depression (1992) Diabetes (Unknown) Environmental allergies Fibromyalgia (Unknown) Fractures (Unknown) Glaucoma (Unknown) H/O deep venous thrombosis (Unknown) Hair loss Hyperthyroidism Iron deficiency Irritable bowel syndrome (Unknown) Itchy scalp Lipoma of right upper extremity (05/20/16) Low back pain (Unknown) Lupus (Unknown) Migraines (Unknown) Pulmonary embolism Surgical History (Updated 05/04/21 @ 14:58 by Jadiel Morrison MD) H/O elbow surgery (2011) H/O shoulder surgery (2013) Family History Father Age: 85 Lung cancer Diabetes 1.5, managed as type 2 Heart disease Social History household members: family Smoking Status: Former smoker alcohol intake: never Discharge Plan Discharge Plan Patient Disposition: Home Provider Discharge Comment: You were admitted to the hospital with respiratory failure due to COVID pneumonia. Improved with initial therapies. At home O2 continued to maintain O2 saturations between 90-96%, please obtain a pulse oximeter at home. Nursing Discharge Comment: Please monitor your O2 at home, you have been on 3L of 02 today. Take rest breaks as you need, and allow time for you to recover from this illness. It will be an extended recovery for you. Discharge orders & Medications Prescriptions: New tramadol 50 mg tablet 50 mg PO Q8H PRN (Reason: pain) 10 Days Qty: 20 RF: 0 Continued naproxen 500 mg tablet 500 mg PO BID PRN (Reason: pain) Qty: 60 RF: 5 ferrous sulfate 325 mg (65 mg iron) tablet,delayed release (DR/EC) 325 mg PO DAILY Qty: 30 RF: 5 Follow up/Referrals: Jadiel Morrison MD [Primary Care Provider] - Diet/Activity/Treatments Diet: Diet as Tolerated Activity: As tolerated Visit Report/Discharge Packet Instructions: DI for COVID-19 (Suspected or Confirmed ), How to Care for Someone with COVID-19, About the COVID-19 Vaccine Discharge Data Primary Care Provider: Jadiel Morrison
--- NOTE | 2021-07-26 15:22 | CM.DPNOTE ---
DC Note According to DAVE Mandujano, patient will DC home w/family today, medically cleared. No needs identified from this STRATEGIC MARKETING MANAGER JW
--- NOTE | 2021-07-26 17:15 | PC.NURSE ---
Discharge Report received from day shift RN. Discharge orders have been received, instructions given, IV's dc'd. RT provided oxygen tank for home use; further supplemental oxygen to be provided by outside home care agency. Pt wheeled down to private vehicle at 1715 for discharge home.
== END 2021-07-26 17:15 | disposition home or self-care (01) | DRG 137 ==
LOC: ED 15:04 → AC 16:20 → ICU 07-25 01:59
PROVIDERS: Internal Medicine; Admitting Provider Internal Medicine; Emergency Provider Emergency Medicine; PCP Student in an Organized Health Care Education/Training Program; Referring Provider Emergency Medicine; Visit Provider Internal Medicine
DX: U07.1 COVID-19 (principal); J12.82 Pneumonia due to coronavirus disease 2019; J96.01 Acute respiratory failure with hypoxia; E66.01 Morbid (severe) obesity due to excess calories; Z68.42 Body mass index [BMI] 45.0-49.9, adult; M19.90 Unspecified osteoarthritis, unspecified site; E11.65 Type 2 diabetes mellitus with hyperglycemia; T38.0X5A Adverse effect of glucocorticoids and synthetic analogues, initial encounter; D50.9 Iron deficiency anemia, unspecified; Z87.891 Personal history of nicotine dependence; Z91.19 Patient's noncompliance with other medical treatment and regimen
CPT/HCPCS: 36415; 36600; 71045; 80053; 81001; 82550; 82553; 82728; 82805; 82962; 83605; 83615; 83880; 84145; 84484; 85007; 85025; 85027; 85379; 86140; 87040; 87502; 87635; 87797; 93005; 93010; 94618; 96361; 96365; 96375; 99285; C9803; A9270; J1100; J1650; J1815; J2405; J3490

== ENCOUNTER 2024-07-23 19:39 | Emergency (ER) | payer MEDICARE, MEDICAID, SELFPAY ==
[2021-07-24 17:45] VITALS: BMI 45.6
[2024-07-23] VITALS (7 sets, daily range): BP systolic 108–172; BP diastolic 55–78; PULSE 78–93; RESP 18; TEMP 36.9–37.1; O2SAT 98–100; BMI 36.5
--- NOTE | 2024-07-23 21:04 | ED.SKABFB ---
HPI - Skin/Abscess/Foreign Bdy General Chief complaint: Skin/Abscess/Foreign Body Stated complaint: infection on lt leg Time Seen by Provider: 07/23/24 19:45 Source: patient Mode of arrival: Ambulatory Limitations: no limitations History of Present Illness HPI narrative: Patient is a 68-year-old female who stated that several days ago she started noticed some redness and swelling to her left inguinal region/upper leg. She stated that the symptoms have worsened over that time and then 3 days ago started to drain. States it has been draining what appears to be purulent material since then. There was surrounding erythema. She was not currently on any antibiotics. She states she was had to change the bandage over the area several times because of drainage. She was here because of persistent drainage Related Data Previous Rx's Medication Instructions Recorded ferrous sulfate 325 mg (65 mg See Rx Instructions .Route 07/21/22 iron) tablet,delayed release .COMPLEX #90 tabs doxycycline hyclate 100 mg tablet 100 mg PO BID 7 days #14 tabs 07/23/24 Allergies Allergy/AdvReac Type Severity Reaction Status Date / Time amoxicillin [AMOXICILLIN] Allergy Unknown Verified 07/01/23 13:51 azelastine [AZELASTINE] AdvReac Severe BITTER Verified 07/01/23 13:51 HORRIBLE AFTER TASTE THAT TOOK 1 1/2 DAYS TO STOP naproxen AdvReac Intermediate GI bleed Verified 07/01/23 13:51 codeine [CODEINE] AdvReac Mild headache Verified 07/01/23 13:51 fluticasone [From FLONASE] AdvReac Mild Nose bleeds Verified 07/01/23 13:51 hydrocodone [From VICODIN] AdvReac Mild constipatio Verified 07/01/23 13:51 n Review of Systems Constitutional Constitutional: Reports system reviewed and no additional complaints, except as documented Musculoskeletal Musculoskeletal: Reports system reviewed and no additional complaints, except as documented Integumentary/Breasts Skin/Breast: Reports system reviewed and no additional complaints, except as documented Patient History Medical History Wears glasses Allergies (~2011) Shoulder pain (~2018) Carpal tunnel syndrome (~2017) Anemia (~2017) History of recurrent ear infection Chronic pain disorder Seasonal allergies Respiratory infection Pulmonary embolism Hyperthyroidism Environmental allergies Iron deficiency Itchy scalp Hair loss Diabetes (Unknown) H/O deep venous thrombosis (Unknown) Low back pain (Unknown) Lupus (Unknown) Depression (1992) Migraines (Unknown) Fractures (Unknown) Fibromyalgia (Unknown) Chickenpox (Unknown) Glaucoma (Unknown) Irritable bowel syndrome (Unknown) Carpal tunnel syndrome of right wrist (12/25/17) Lipoma of right upper extremity (05/20/16) Bunion of great toe of left foot (01/28/16) Surgical History (Updated 06/14/22 @ 20:57 by Veronica Quiroga) Anesthesia History of bunionectomy (~2008) H/O shoulder surgery (2012) H/O elbow surgery (2011) Family History (Updated 06/14/22 @ 20:58 by Veronica Quiroga) Father Lung cancer Diabetes 1.5, managed as type 2 Heart disease Brother Heart disease Social History household members: family Smoking Status: Former smoker alcohol intake: never Smoking Status: Former smoker Substance Use Type: does not use Exam Initial Vital Signs Initial Vital Signs: Vital Signs Temperature 98.4 F 07/23/24 19:40 Pulse Rate 88 07/23/24 19:40 Respiratory Rate 18 07/23/24 19:40 Blood Pressure 172/78 H 07/23/24 19:40 Pulse Oximetry 100 07/23/24 19:40 Oxygen Delivery Method Room Air 07/23/24 19:40 [facility] Head: normal to inspection and normocephalic Skin Other: Patient does have a large area of redness in the left upper inguinal region/upper thigh. There is a 1 cm x 1 cm area of an open wound on the anterior portion. It is draining purulent material. There was a small amount of underlying induration in this area. Neuro General: patient alert and patient awake Extrem General: capillary refill normal Course Orders Ordered: Discontinued Medications Doxycycline Hyclate (Doxycycline Hyclate 100 Mg Tablet) 100 mg PO NOW ONE Stop: 07/23/24 21:05 Last Admin: 07/23/24 21:12 Dose: 100 mg Documented By: SHO Vital Signs Vital signs: Vital Signs - 8 hr 07/23/24 19:40 07/23/24 19:43 07/23/24 19:44 Temperature 98.4 F Pulse Rate 88 89 93 H Respiratory Rate 18 Blood Pressure 172/78 H Pulse Oximetry 100 98 100 Oxygen Delivery Method Room Air 07/23/24 19:44 07/23/24 20:00 07/23/24 20:30 Temperature Pulse Rate 81 Respiratory Rate Blood Pressure 172/78 H 117/58 L Pulse Oximetry 100 Oxygen Delivery Method 07/23/24 20:30 07/23/24 21:00 07/23/24 21:00 Temperature Pulse Rate 78 81 Respiratory Rate 18 Blood Pressure 108/55 L Pulse Oximetry 98 98 Oxygen Delivery Method 07/23/24 21:23 Temperature 98.7 F Pulse Rate Respiratory Rate Blood Pressure Pulse Oximetry Oxygen Delivery Method MDM - Skin/Abscess/Foreign Bdy MDM Narrative Medical decision making narrative: Patient has an obvious cellulitis and what appears to be a draining abscess. Low suspicion that this is a septic joint. There was very little induration and when the area is squeezed purulent material is expressed. The open area appears to be large enough that I have low suspicion that it is going to close on its own so I will hold on further incision and drainage for now. It is obviously draining. Will place her on antibiotics. She was given 1st dose here in the ER and a prescription was sent to the pharmacy of her choice. I feel that a trial of outpatient antibiotics is warranted although she was informed that if her symptoms continue despite the antibiotics that she needs to return to the emergency department for further evaluation. She expressed understanding and agreement with plan. Discharge Plan Departure Patient Disposition: Home Clinical Impression: Abscess, Cellulitis Instructions: DI for Cellulitis -- Adult, DI for Skin Abscess Activity Restrictions/Additional Instructions: You can shower like normal. Keep the area covered with a bandage. Expect some drainage for the next couple days. Your symptoms should start to improve in the next 24-48 hours. If not please return to the emergency department. Prescriptions: New doxycycline hyclate 100 mg tablet 100 mg PO BID 7 Days Qty: 14 0RF No Action ferrous sulfate 325 mg (65 mg iron) tablet,delayed release (DR/EC) See Rx Instructions .ROUTE .COMPLEX Qty: 90 3RF Dose Instruction: TAKE ONE TABLET BY MOUTH ONE TIME DAILY Rx Instructions: TAKE ONE TABLET BY MOUTH ONE TIME DAILY Referrals: Latoya Arana ARNP, RN [Primary Care Provider] - Stand Alone Forms: Patient Portal/API
[2024-07-23] MEDS: DOXYCYCLINE HYCLATE 100 MG TABLET PO (21:12)
== END 2024-07-23 21:24 | disposition home or self-care (01) ==
PROVIDERS: Emergency Provider Emergency Medicine; PCP Nurse Practitioner Family
DX: L02.416 Cutaneous abscess of left lower limb (principal); L03.116 Cellulitis of left lower limb
CPT/HCPCS: 99283

== ENCOUNTER 2025-03-04 16:16 | Inpatient (IN) | payer MEDICARE, MEDICAID, SELFPAY ==
[2021-07-24 17:45] VITALS: BMI 45.6
[2025-03-04] VITALS (17 sets, daily range): BP systolic 113–178; BP diastolic 67–101; PULSE 79–109; RESP 19–32; TEMP 36.5–37.1; O2SAT 90–97; BMI 31.8
--- NOTE | 2025-03-04 16:25 | DI.RAD.S_ITS ---
PROCEDURE: XR CHEST 1V INDICATIONS: cough/rhonchi hypoxia TECHNIQUE: One view of the chest was acquired. COMPARISON: [facility], CR, XR CHEST 1V, 07/24/2021, 14:59. FINDINGS: Surgical changes and devices: None. Lungs and pleura: Bibasilar pulmonary infiltrates accentuated by low lung volumes. Blunting of both costophrenic angles. Mediastinum: Mediastinal contours appear normal. Heart size is normal. Bones and chest wall: Left shoulder arthroplasty. Advanced right right shoulder arthritic changes IMPRESSION: Bibasilar pulmonary infiltrates consistent with pneumonia Approved by: Kelechi Loaiza M.D. on 03/04/2025 at 16:02
[2025-03-04 17:05] LABS: Influenza A - CEPHEID Flu A NEGATIVE (NEGATIVE); Influenza B - CEPHEID Flu B NEGATIVE (NEGATIVE); Respiratory Syncytial Virus Negative (Negative)
[2025-03-04 17:07] LABS: COVID-19 CEPHEID 4-PLEX PCR Negative (Negative)
[2025-03-04] MEDS: ALBUTEROL/IPRATROPIUM 3 ML AMPUL INH (17:11)
--- NOTE | 2025-03-04 17:37 | EKG_ITS ---
[facility] [address] [place] [address] Test Date: 2025-03-04 Pat Name: Rupa Sullivan Department: [facility] Room: Gender: Female Chest Painting Leader: LEVON : 1955 Requested By: Order Number: [id number] Reading MD: Isael Ramos MD Measurements Intervals [place] Rate: 83 P: 47 RI: 124 QRS: 8 QRSD: 86 T: 31 QT: 324 QTc: 380 Interpretive Statements Sinus rhythm with marked sinus arrhythmia Septal infarct , age undetermined Electronically Signed On 03-05-2025 7:57:35 PDT by Isael Ramos MD
[2025-03-04 17:45] LABS: Hematocrit 46.2 % (36-46); Hemoglobin 15.6 g/dL (12.0-16.0); Mean Corpuscular HGB Conc 33.8 % (30-36); Mean Corpuscular Hemoglobin 29.7 PG (26-34); Mean Corpuscular Volume 87.9 fL (80-100); Platelet Count 192 X10^3/uL (150-400); Red Blood Cell Count 5.25 X10^6/uL (4.0-5.2); Red Cell Distribution Width 14.3 % (11.6-14.8); White Blood Cell Count 6.8 X10^3/uL (4.5-11.0)
[2025-03-04 17:50] LABS: Add Manual Diff / Slide Review YES
[2025-03-04 18:00] LABS: Lactate (Lactic Acid) 3.5 mmol/L (0.7-2.1)
[2025-03-04 18:02] LABS: Alanine Aminotransferase 29 IU/L (<35); Albumin 3.6 g/dL (3.5-5.0); Albumin Globulin Ratio 1.2 (1.0-2.8); Alkaline Phosphatase 154 U/L (38-126); Aspartate Aminotransferase 33 IU/L (14-36); BUN Creatinine Ratio 36.8 (6-22); Bilirubin Total 1.4 mg/dL (0.2-1.3); Blood Urea Nitrogen 25 mg/dL (7-17); Calcium 9.9 mg/dL (8.4-10.2); Carbon Dioxide 25 mmol/L (22-32); Chloride 101 mmol/L (98-107); Creatine Kinase < 20 U/L (30-135); Estimated Glomerular Filt Rate > 60 mL/min (>60); Globulin 3.1 g/dL (1.7-4.1); Glucose 288 mg/dL (70-99); HEMOLYSIS < 15 (0-50); Potassium 3.5 mmol/L (3.4-5.1); Sodium 136 mmol/L (137-145); Total Protein 6.7 g/dL (6.3-8.2)
[2025-03-04 18:09] LABS: NT-proBNP (BNP-Adult 18+) 3060 pg/mL (<125)
[2025-03-04 18:13] LABS: Troponin I < 0.012 ng/mL (0.01-0.034)
[2025-03-04 18:18] LABS: Procalcitonin 1.64 ng/mL (<0.5)
[2025-03-04 18:20] LABS: Neutrophils Absolute Manual 5712 /uL (3000-5900); RBC Morphology Normal Morphology; Total Cells Counted 100
[2025-03-04 18:21] LABS: Toxic Granulation Present; Toxic Vacuolation Present
--- NOTE | 2025-03-04 18:57 | ED_ITS ---
HPI - General Adult General Chief complaint: Upper Respiratory Symptoms Stated complaint: Malaise 2 Days Time Seen by Provider: 03/04/25 16:58 History of Present Illness HPI narrative: 69-year-old female complains of 2 days duration of productive cough and increasing shortness of breath. Denies chest pain except occasionally with cough. Denies swelling sensation to either leg. No history of blood clots to legs or lungs. No leg pain or swelling symptoms. Denies fevers or chills. Denies recent diagnosis of pulmonary illness, denies recent antibiotic exposure. Related Data Home Medications Medication Instructions Recorded Confirmed No Known Home Medications 03/04/25 03/04/25 Allergies Allergy/AdvReac Type Severity Reaction Status Date / Time amoxicillin [AMOXICILLIN] Allergy Unknown Verified 07/01/23 13:51 azelastine [AZELASTINE] AdvReac Severe BITTER Verified 07/01/23 13:51 HORRIBLE AFTER TASTE THAT TOOK 1 1/2 DAYS TO STOP naproxen AdvReac Intermediate GI bleed Verified 07/01/23 13:51 codeine [CODEINE] AdvReac Mild headache Verified 07/01/23 13:51 fluticasone [From FLONASE] AdvReac Mild Nose bleeds Verified 07/01/23 13:51 hydrocodone [From VICODIN] AdvReac Mild constipatio Verified 07/01/23 13:51 n Patient History Medical History Wears glasses Allergies (~2011) Shoulder pain (~2017) Carpal tunnel syndrome (~2016) Anemia (~2016) History of recurrent ear infection Chronic pain disorder Seasonal allergies Respiratory infection Pulmonary embolism Hyperthyroidism Environmental allergies Iron deficiency Itchy scalp Hair loss Diabetes (Unknown) H/O deep venous thrombosis (Unknown) Low back pain (Unknown) Lupus (Unknown) Depression (1992) Migraines (Unknown) Fractures (Unknown) Fibromyalgia (Unknown) Chickenpox (Unknown) Glaucoma (Unknown) Irritable bowel syndrome (Unknown) Carpal tunnel syndrome of right wrist (12/25/17) Lipoma of right upper extremity (05/20/16) Bunion of great toe of left foot (01/28/16) Surgical History (Updated 06/14/22 @ 20:57 by Veronica Quiroga) Anesthesia History of bunionectomy (~2008) H/O shoulder surgery (2012) H/O elbow surgery (2011) Family History (Updated 06/14/22 @ 20:58 by Veronica Quiroga) Father Lung cancer Diabetes 1.5, managed as type 2 Heart disease Brother Heart disease Social History household members: family Smoking Status: Never smoker alcohol intake: never Exam Narrative Exam Narrative: GENERAL: Well-developed patient, in mild distress. HEAD: Atraumatic. Normocephalic. EYES: Pupils equal round and reactive. Extraocular motions intact. No scleral icterus. No injection or drainage. ENT: Nose without bleeding, purulent drainage. Throat without erythema, tonsillar hypertrophy or exudate. Airway patent. NECK: Trachea midline. Non tender CARDIOVASCULAR: Regular rate and rhythm without murmurs, gallops, or rubs. RESPIRATORY: Clear to auscultation. Breath sounds equal bilaterally. No wheezes, rales, or rhonchi. GASTROINTESTINAL: Abdomen soft, non-tender, nondistended. EXTREMITIES: No edema or joint tenderness. BACK: Nontender without deformity or crepitance. No flank tenderness. NEURO: AOx3. Motor functions grossly nonfocal SKIN: No rash or erythema of visible areas Initial Vital Signs Initial Vital Signs: Vital Signs Pulse Rate 91 H 03/04/25 16:20 Pulse Oximetry 96 03/04/25 16:20 Course Orders Ordered: ED Orders 03/04/25 19:38 CT angio chest PE protocol Stat 03/05/25 02:10 Basic Metabolic Panel DAILY Complete Blood Count AUTO DIFF DAILY Lactate (Lactic Acid) Urgent Acetaminophen (Acetaminophen 325 Mg Tablet) 650 mg PO Q6H PRN PRN Reason: Fever/Mild Pain (1-3) Heparin Sodium (Porcine) (Heparin 5,000 Unit/Ml Vial) 5,000 unit SUBCUT BID CARYN Last Admin: 03/04/25 20:39 Dose: 5,000 unit Documented By: RLC Ceftriaxone Sodium 1,000 mg/ (Sodium Chloride) 100 mls @ 200 mls/hr IV DAILY CARYN Azithromycin 500 mg/ Dextrose 250 mls @ 250 mls/hr IV DAILY CARYN Sodium Chloride (Normal Saline 0.9%) 1,000 mls @ 84 mls/hr IV CONT CARYN Last Admin: 03/04/25 23:00 Dose: 84 mls/hr Documented By: Lorazepam (Lorazepam 0.5 Mg Tablet) 0.5 mg PO TID PRN PRN Reason: Anxiety Last Admin: 03/04/25 22:11 Dose: 0.5 mg Documented By: MS Lorazepam (Lorazepam 1 Mg Tablet) 1 mg PO BEDTIME PRN PRN Reason: Sleep Last Admin: 03/05/25 01:08 Dose: 1 mg Documented By: MS Melatonin (Melatonin 3 Mg Tablet) 9 mg PO BEDTIME CARYN Last Admin: 03/04/25 22:11 Dose: 9 mg Documented By: Metoprolol Tartrate (Metoprolol Tartrate 5 Mg/5 Ml Inj) 10 mg IV Q4H PRN PRN Reason: HR > 120 sustained Last Admin: 03/05/25 02:14 Dose: 10 mg Documented By: Morphine Sulfate (Morphine 2 Mg/Ml Inj) 2 mg IV Q4HR PRN PRN Reason: Pain, Severe (7-10) Last Admin: 03/04/25 23:20 Dose: 2 mg Documented By: Naloxone HCl (Naloxone 0.4 Mg/Ml Vial) 0.2 mg IV Q2MIN PRN PRN Reason: Opiate Reversal Ondansetron HCl (Ondansetron 4 Mg/2 Ml Inj) 4 mg IV Q8HR PRN PRN Reason: Nausea And Vomiting Oxycodone/Acetaminophen (Oxycodone/Acetaminophen 5/325 Tablet) 1 tab PO Q6HR PRN PRN Reason: Pain, Moderate (4-6) Last Admin: 03/04/25 22:11 Dose: 1 tab Documented By: Sodium Chloride (Sodium Chloride 0.9% Flush) 10 ml IV PRN PRN PRN Reason: Flush Sodium Chloride (Sodium Chloride 0.9% Flush) 10 ml IV BID CARYN Discontinued Medications Albuterol/Ipratropium (Albuterol/Ipratropium 3 Ml Ampul) 3 ml INH NOW ONE Stop: 03/04/25 17:03 Last Admin: 03/04/25 17:11 Dose: 3 ml Documented By: SACHIN Doxycycline Hyclate (Doxycycline Hyclate 100 Mg Tablet) 100 mg PO NOW ONE Stop: 03/04/25 18:56 Last Admin: 03/04/25 19:44 Dose: 100 mg Documented By: RLIvana Fentanyl (Fentanyl 100 Mcg/2 Ml Inj) 25 mcg IV NOW ONE Stop: 03/05/25 00:41 Last Admin: 03/05/25 01:07 Dose: 25 mcg Documented By: Furosemide (Furosemide 40 Mg/4 Ml Vial) 20 mg IV NOW ONE Stop: 03/04/25 19:07 Last Admin: 03/04/25 19:44 Dose: 20 mg Documented By: SHRUTI Ceftriaxone Sodium 1,000 mg/ (Sodium Chloride) 100 mls @ 200 mls/hr IV NOW ONE Stop: 03/04/25 18:56 Last Infusion: 03/04/25 20:52 Dose: Infused Documented By: Admin: 03/04/25 19:45 Dose: 200 mls/hr Documented By: DMITRYC Vital Signs Vital signs: Vital Signs - 8 hr 03/04/25 19:30 03/04/25 20:30 Pulse Rate 104 H 106 H Respiratory Rate 30 H 21 Blood Pressure 113/81 Pulse Oximetry 92 92 Oxygen Delivery Method Nasal Cannula Oxygen Flow Rate 2 Medical Decision Making Lab Data Lab results reviewed: Yes I reviewed the patient's lab results. Lab results narrative: White blood cell count 6800, hemoglobin 15.6, platelets adequate. Glucose 288. Serum CO2 25. Sodium 136 with potassium 3.5. BUN 25 with creatinine 0.68 normal. Troponin negative. Slight elevation T bili and alkaline phosphatase, normal transaminases. Procalcitonin 1.6 elevated. Lactate 3.5 elevated. Blood cultures requested. 03/05/25 02:10 03/05/25 02:10 Labs: Lab Results 03/04/25 03/04/25 03/04/25 Range/Units 14:20 17:32 19:38 WBC 6.8 (4.5-11.0) X10^3/uL RBC 5.25 H (4.0-5.2) X10^6/uL Hgb 15.6 (12.0-16.0) g/dL Hct 46.2 H (36-46) % MCV 87.9 (80-100) fL MCH 29.7 (26-34) PG MCHC 33.8 (30-36) % RDW 14.3 (11.6-14.8) % Plt Count 192 (150-400) X10^3/uL Neut % (Auto) Not Reportable Lymph % (Auto) Not Reportable Tillman % (Auto) Not Reportable Eos % (Auto) Not Reportable Baso % (Auto) Not Reportable Lymph # (Auto) Not Reportable Tillman # (Auto) Not Reportable Baso # (Auto) Not Reportable Total Counted 100 Seg Neutrophils % 31.0 L (38-70) % Band Neutrophils % 53.0 H (3-7) % Lymphocytes % (Manual) 6.0 L (25-45) % Monocytes % (Manual) 6.0 (2-11) % Metamyelocytes % 4.0 H (-0) % Neutrophils # (Manual) 5712 (9129-4001) /uL Toxic Granulation Present H Toxic Vacuolation Present H Plt Morphology Comment RBC Morphology Normal morphology Sodium 136 L (137-145) mmol/L Potassium 3.5 (3.4-5.1) mmol/L Chloride 101 (98-107) mmol/L Carbon Dioxide 25 (22-32) mmol/L BUN 25 H (7-17) mg/dL Creatinine 0.68 (0.52-1.04) mg/dL Estimated GFR > 60 (>60) mL/min BUN/Creatinine Ratio 36.8 H (6-22) Glucose 288 H (70-99) mg/dL Lactate 3.5 H 3.5 H (0.7-2.1) mmol/L Calcium 9.9 (8.4-10.2) mg/dL Total Bilirubin 1.4 H (0.2-1.3) mg/dL AST 33 (14-36) IU/L ALT 29 (<35) IU/L Alkaline Phosphatase 154 H (38-126) U/L Total Creatine Kinase < 20 L (30-135) U/L Troponin I < 0.012 (0.01-0.034) ng/mL NT-Pro-B Natriuret Pep 3060 H (<125) pg/mL Total Protein 6.7 (6.3-8.2) g/dL Albumin 3.6 (3.5-5.0) g/dL Globulin 3.1 (1.7-4.1) g/dL Albumin/Globulin Ratio 1.2 (1.0-2.8) Procalcitonin 1.64 H (<0.5) ng/mL SARS-CoV-2 (PCR) Negative (Negative) Influenza A (RT-PCR) Flu a negative (NEGATIVE) Influenza B (RT-PCR) Flu b negative (NEGATIVE) RSV (PCR) Negative (Negative) Imaging Data CT angiogram chest: Radiologist's Impression: [address] [address] [address] Scan Report Signed Patient: Rupa Sullivan MR#: [id number] : 1955 Acct:[id number] Age/Sex: 69 / F Date of Service: 03/04/25 Loc: [address] Accession Number: [id number] Procedure: CT angio chest PE protocol Ordering Provider: Hilario Duron MD PROCEDURE: CT ANGIO CHEST PE PROTOCOL INDICATIONS: dyspnea TECHNIQUE: After the administration of intravenous contrast, 2 mm thick sections acquired from the pulmonary apices to the posterior costophrenic angles. 3-dimensional maximum intensity projection (MIP) coronal and sagittal reformats were then acquired through the thorax. For radiation dose reduction, the following was used: automated exposure control, adjustment of mA and/or kV according to patient size. COMPARISON: [facility], CT, CT ANGIO CHEST PE PROTOCOL, 07/23/2018, 19:23. [facility], CR, XR CHEST 1V, 07/24/2021, 14:59. [facility], CR, XR CHEST 1V, 03/04/2025, 16:26. FINDINGS: Image quality: This study is limited by body habitus. This examination is limited by involuntary motion artifact. Pulmonary arteries: The bolus of the contrast injection is suboptimal. The main pulmonary artery measures 220 Hounsfield units. Pulmonary artery densities are greater than 250 Hounsfield units are considered to be ideal for evaluation of pulmonary embolism. However, no large or central pulmonary emboli are seen on these images. No pulmonary emboli are seen more distally, although sensitivity for detection of such is limited on this study. Lower Neck: No enlarged lymph nodes. Thyroid: No thyroid nodules which require sonographic follow up, per consensus guidelines. Axillae: No enlarged lymph nodes. Chest Wall: Unremarkable. Bones: Left shoulder arthroplasty hardware is seen. Generalized degenerative changes are seen, including significant degenerative change of the right shoulder. Lungs and Pleura: Significant patchy, poorly defined opacities can be seen involving all 5 lobes of the lung, although most prominently within the left lower lobe and the right lower lobe. No pneumothorax or pleural effusions are seen. Heart: Heart size is normal. No pericardial effusion. Thoracic Vessels: No aortic aneurysm. Mediastinum and Magaly: No enlarged lymph nodes. Esophagus: No wall thickening. No hiatal hernia. Upper Abdomen: Visualized upper abdomen solid organs and bowel loops appear normal. An IVC filter can be seen on the bow maker custom image. IMPRESSION: No large or central pulmonary embolism. Significant infiltrates can be seen throughout the lungs, although most prominent within the lower lobes. Additional findings: Left shoulder arthroplasty hardware Significant right shoulder degenerative change Dictated by: Lon Méndez M.D. on 03/04/2025 at 19:53 Approved by: Lon Méndez M.D. on 03/04/2025 at 19:57 Chest x-ray: Radiologist's Impression: [address] [address] XRay Report Signed Patient: Rupa Sullivan MR#: [id number] : 1955 Acct:[id number] Age/Sex: 69 / F Date of Service: 03/04/25 Loc: ED Accession Number: [id number] Procedure: XR chest 1V Ordering Provider: Wendy Jewell D.O. PROCEDURE: XR CHEST 1V INDICATIONS: cough/rhonchi hypoxia TECHNIQUE: One view of the chest was acquired. COMPARISON: [facility], TREY, XR CHEST 1V, 07/24/2021, 14:59. FINDINGS: Surgical changes and devices: None. Lungs and pleura: Bibasilar pulmonary infiltrates accentuated by low lung volumes. Blunting of both costophrenic angles. Mediastinum: Mediastinal contours appear normal. Heart size is normal. Bones and chest wall: Left shoulder arthroplasty. Advanced right right shoulder arthritic changes IMPRESSION: Bibasilar pulmonary infiltrates consistent with pneumonia Approved by: Kelechi Loaiza M.D. on 03/04/2025 at 16:02 ECG Data Attestation: I personally reviewed and interpreted this ECG as follows: Interpretation: Normal sinus rhythm with rate of 83, no obvious ST segment elevation or depression changes. UT 124, QRS 86, QTC 380. [facility] Narrative Medical decision making narrative: 69-year-old female with shortness of breath, screening labs remarkable for elevated lactate and procalcitonin, normal white blood cell count, chest x-ray suspicious for bilateral lower lobe infiltrates. BNP however elevated at 3060. We will not give aggressive IV fluid hydration on this basis. Blood culture sent. History of amoxicillin allergy, has had taken penicillin before without troubles. Will give IV ceftriaxone with oral doxycycline. Given BNP elevation, consider inpatient further management of pneumonia in context of possible congestive heart failure. BNP 3060 elevated, we will hold on IV fluid aggressive treatment, we will in fact give IV Lasix 20 mg for now. Patient speaking in just short of full sentences, borderline saturations, bilateral pneumonia on x-ray, elevated lactate, elevated procalcitonin, elevated BNP we will hold on aggressive IV fluid therapy for now. Antibiotics started. Consider admission. Patient seems amenable to admission. We will contact hospitalist. Case discussed with Dr. Padilla hospitalist, who requests CT angio chest study, renal function adequate, ordered. CT angiogram chest. Impressions: ?no large or central pulmonary embolism. Significant infiltrates can be seen throughout the lungs although most prominent within the lower lobes. ? See radiology report. Hospitalist Dr. Padilal aware of CTA findings, also that repeat lactate 3.5 unchanged, accepted patient for admission to inpatient service. Critical Care Time Critical Care Time Critical Care Time: Yes Total Critical Care Time: 35 Attestation: The high probability of a clinically significant, sudden or life threatening deterioration of the [respiratory, cardiopulmonary] system(s) required my full and direct attention, intervention and personal management. The aggregate critical care time was [35] minutes. This time is in addition to time spent performing reported procedures but includes the following: [x] Data Review and interpretation [x] Patient assessment and monitoring of vital signs [x] Documentation [x] Medication orders and management Discharge Plan Departure Patient Disposition: Admitted As Inpatient Clinical Impression: Pneumonia, Dyspnea Admit Date/Time: 03/04/25 20:32 Admit Provider: Rocco Padilla
[2025-03-04 19:13] LABS: Reflexed Lactate in 2 Hours Y
--- NOTE | 2025-03-04 19:38 | DI.CT.S_ITS ---
PROCEDURE: CT ANGIO CHEST PE PROTOCOL INDICATIONS: dyspnea TECHNIQUE: After the administration of intravenous contrast, 2 mm thick sections acquired from the pulmonary apices to the posterior costophrenic angles. 3-dimensional maximum intensity projection (MIP) coronal and sagittal reformats were then acquired through the thorax. For radiation dose reduction, the following was used: automated exposure control, adjustment of mA and/or kV according to patient size. COMPARISON: [facility], CT, CT ANGIO CHEST PE PROTOCOL, 07/23/2018, 19:23. [facility], CR, XR CHEST 1V, 07/24/2021, 14:59. [facility], CR, XR CHEST 1V, 03/04/2025, 16:26. FINDINGS: Image quality: This study is limited by body habitus. This examination is limited by involuntary motion artifact. Pulmonary arteries: The bolus of the contrast injection is suboptimal. The main pulmonary artery measures 220 Hounsfield units. Pulmonary artery densities are greater than 250 Hounsfield units are considered to be ideal for evaluation of pulmonary embolism. However, no large or central pulmonary emboli are seen on these images. No pulmonary emboli are seen more distally, although sensitivity for detection of such is limited on this study. Lower Neck: No enlarged lymph nodes. Thyroid: No thyroid nodules which require sonographic follow up, per consensus guidelines. Axillae: No enlarged lymph nodes. Chest Wall: Unremarkable. Bones: Left shoulder arthroplasty hardware is seen. Generalized degenerative changes are seen, including significant degenerative change of the right shoulder. Lungs and Pleura: Significant patchy, poorly defined opacities can be seen involving all 5 lobes of the lung, although most prominently within the left lower lobe and the right lower lobe. No pneumothorax or pleural effusions are seen. Heart: Heart size is normal. No pericardial effusion. Thoracic Vessels: No aortic aneurysm. Mediastinum and Magaly: No enlarged lymph nodes. Esophagus: No wall thickening. No hiatal hernia. Upper Abdomen: Visualized upper abdomen solid organs and bowel loops appear normal. An IVC filter can be seen on the director of anesthesia services image. IMPRESSION: No large or central pulmonary embolism. Significant infiltrates can be seen throughout the lungs, although most prominent within the lower lobes. Additional findings: Left shoulder arthroplasty hardware Significant right shoulder degenerative change Dictated by: Lon Méndez M.D. on 03/04/2025 at 19:53 Approved by: Lon Méndez M.D. on 03/04/2025 at 19:57
[2025-03-04] MEDS: DOXYCYCLINE HYCLATE 100 MG TABLET PO (19:44)
[2025-03-04] MEDS: FUROSEMIDE 40 MG/4 ML VIAL 20 MG IV (19:44)
[2025-03-04] MEDS: cefTRIAXone 1,000 MG in SODIUM CHLORIDE 0.9% 100 ML 200 MG IV (19:45)
[2025-03-04 19:59] LABS: Lactate 2HR (Lactic Acid Rflx) 3.5 mmol/L (0.7-2.1)
[2025-03-04] MEDS: HEPARIN 5,000 UNIT/ML VIAL 5000 UNIT SUBCUT (20:39)
[2025-03-04 21:11] LABS: RBC Urine 0-1/HPF (0-5/HPF); Urine Volume 10mL (spun)
[2025-03-04 21:12] LABS: WBC Urine None Seen (0-5/HPF)
[2025-03-04 21:13] LABS: Bacteria Urine Few (2-10); Culture Indicated Urine Cult Not Indicated; Hyaline Casts Urine 0-1/LPF; Squamous Epithelial Cell Urine 5-10 /HPF (0-5/HPF)
[2025-03-04] MEDS: MELATONIN 3 MG TABLET 9 MG PO (22:11)
[2025-03-04] MEDS: LORazepam 0.5 MG TABLET PO (22:11)
[2025-03-04] MEDS: OXYCODONE/ACETAMINOPHEN 5/325 TABLET 1 TAB PO (22:11)
[2025-03-04] MEDS: SODIUM CHLORIDE 0.9% 1,000 ML 84 ML IV (23:00)
--- NOTE | 2025-03-04 23:01 | PC.NURSE ---
Addendum entered by Mejia Stokes R.N. 03/05/25 04:08: Patient had a increase in work of breathing; respiratory rate of 30-38, and increase need of oxygen from 4 liters NC to 14 liters Oximask. MD notified, and placed transfer orders to ICU room 227. Addendum entered by Mejia Stokes R.N. 03/05/25 01:43: PROCESS DEVELOPMENT ENGINEER notified RN that patient's HR was in 17o's, RN notified provider and proceeded to get EKG done. Patient HR is varying from 80's-170's and random. EKG + Sinus tack with occasional PVC's. MD aware, set up and charger aware. Addendum entered by Mejia Stokes R.N. 03/05/25 00:44: Patient is getting more agitated and requesting more medications for sleep and anxiety, Provider notified and set up and charger made aware. MD reviewing patient chart. 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 Patient had a surgery to remove excess skin 01/25/2025. Provider notified. Dr Padilla ordered medications. Patient family later called and notified RN that patient is very anxious because patient admitted to being addicted to fentanyl. Family members are unsure how long and where she was getting the drugs. Patient states she wants help to get off the drugs. RN notified provider of situation. crna aware.
[2025-03-04] MEDS: MORPHINE 2 MG/ML INJ IV (23:20)
[2025-03-05] VITALS (179 sets, daily range): BP systolic 63–173; BP diastolic 40–122; PULSE 89–125; RESP 15–48; TEMP 36.5–37.4; O2SAT 69–100
[2025-03-05] MEDS: fentaNYL 100 MCG/2 ML INJ 25 MCG IV (01:07)
[2025-03-05] MEDS: LORazepam 1 MG TABLET PO (01:08)
--- NOTE | 2025-03-05 01:31 | EKG_ITS ---
[place] [id number] [place] [id number] Test Date: 2025-03-05 Pat Name: Rupa Sullivan Department: Room: 227 Gender: Female Video Software Engineer: ESDRAS JONES : 1955 Requested By: Order Number: [id number] Reading MD: Benja Chavez Measurements Intervals [place] Rate: 120 P: 34 GA: 122 QRS: -10 QRSD: 86 T: 31 QT: 278 QTc: 392 Interpretive Statements Sinus tachycardia with premature atrial complexes Moderate voltage criteria for LVH, may be normal variant ( R in aVL , Walt product ) Electronically Signed On 03-08-2025 17:36:10 PDT by Benja Chavez
--- NOTE | 2025-03-05 02:06 | P.HP_ITS ---
History of Present Illness History of Present Illness Chief complaint: Malaise 2 Days Narrative: 69-year-old female with past medical history of fentanyl abuse, hypothyroidism, pulmonary embolism, diabetes, migraines, and irritable bowel syndrome presents with coughing and shortness of breath. Per the patient's report, over the last few days, the patient has been having increasing shortness of breath with a productive cough. The patient however denies any fever, chills, nausea, vomiting, diarrhea syncope. The patient admits that whenever she cough or takes deep breath, the patient has pleuritic chest pain accross her entire chest. The patient later admits that she does abuse fentanyl. In the emergency room, the patient was hemodynamically stable with slight tachycardia. The patient was requiring 2-3 L of oxygen per nasal cannula. WBC was normal but lactic acid was 3.5. BNP was 3,060. IV ceftriaxone and IV azithromycin was given. 20 mg of IV Lasix was given. Chest x-ray shows signs of pneumonia but no signs of volume overload. Patient does not have pitting edema per ER physician. CT angio of the chest was done which shows again bilateral pneumonia but no evidence of volume overload. IV fluid was started after repeated lactic acid to be 3.5 which is some change. [facility] Medical History Wears glasses Allergies (~2011) Shoulder pain (~2017) Carpal tunnel syndrome (~2016) Anemia (~2017) History of recurrent ear infection Chronic pain disorder Seasonal allergies Respiratory infection Pulmonary embolism Hyperthyroidism Environmental allergies Iron deficiency Itchy scalp Hair loss Diabetes (Unknown) H/O deep venous thrombosis (Unknown) Low back pain (Unknown) Lupus (Unknown) Depression (1992) Migraines (Unknown) Fractures (Unknown) Fibromyalgia (Unknown) Chickenpox (Unknown) Glaucoma (Unknown) Irritable bowel syndrome (Unknown) Carpal tunnel syndrome of right wrist (12/25/17) Lipoma of right upper extremity (05/20/16) Bunion of great toe of left foot (01/28/16) Surgical History (Updated 06/14/22 @ 20:57 by Veronica Quiroga) Anesthesia History of bunionectomy (~2008) H/O shoulder surgery (2012) H/O elbow surgery (2011) Family History (Updated 06/14/22 @ 20:58 by Veronica Quiroga) Father Lung cancer Diabetes 1.5, managed as type 2 Heart disease Brother Heart disease Social History household members: family Smoking Status: Never smoker alcohol intake: never Meds Home Medications and Allergies Home Medications Medication Instructions Recorded Confirmed Type No Known Home Medications 03/04/25 03/04/25 History Allergies Allergy/AdvReac Type Severity Reaction Status Date / Time amoxicillin [AMOXICILLIN] Allergy Unknown Verified 07/01/23 13:51 azelastine [AZELASTINE] AdvReac Severe BITTER Verified 07/01/23 13:51 HORRIBLE AFTER TASTE THAT TOOK 1 1/2 DAYS TO STOP naproxen AdvReac Intermediate GI bleed Verified 07/01/23 13:51 codeine [CODEINE] AdvReac Mild headache Verified 07/01/23 13:51 fluticasone [From FLONASE] AdvReac Mild Nose bleeds Verified 07/01/23 13:51 hydrocodone [From VICODIN] AdvReac Mild constipatio Verified 07/01/23 13:51 n Exam Vital Signs (past 8 hours): - 03/04/25 18:30 03/04/25 18:30 03/04/25 19:30 Temperature Pulse Rate 100 H 104 H Respiratory Rate 30 H Blood Pressure 147/67 H 113/81 Pulse Oximetry 91 92 Oxygen Delivery Method Nasal Cannula Oxygen Flow Rate 2 03/04/25 20:30 03/04/25 21:00 03/04/25 22:14 Temperature 98.7 F Pulse Rate 106 H 109 H Respiratory Rate 21 26 H Blood Pressure 154/101 H Pulse Oximetry 92 92 Oxygen Delivery Method Oximask Oxygen Flow Rate 4 03/04/25 22:51 Temperature 98.7 F Pulse Rate 109 H Respiratory Rate 19 Blood Pressure 154/101 H Pulse Oximetry 92 Oxygen Delivery Method Oxygen Flow Rate 4 Oxygen Delivery Method Oximask Oxygen Flow Rate 4 Narrative Exam Narrative: Physical Exam: GENERAL: The patient is not in any acute distressed. Awake and alert. HEENT: Nonicteric sclerae, PERRLA, EOMI. Oropharynx clear. Moist mucous membranes. Conjunctivae appear well perfused. HEART: Regular rate and rhythm without murmurs. No lower extremities edema. LUNGS: Clear to auscultation bilaterally. No wheezing, crackles or rhonchi ABDOMEN: Soft, positive bowel sounds, nontender. SKIN: No rash, no excessive bruising, petechiae, or purpura. NEUROLOGIC: AxO x 3. Cranial nerves II-XII intact without motor/sensory deficit. Objective Labs 03/04/25 17:32 03/04/25 17:32 Labs: Laboratory Results - last 24 hr 03/04/25 03/04/25 03/04/25 14:20 17:32 19:38 WBC 6.8 RBC 5.25 H Hgb 15.6 Hct 46.2 H MCV 87.9 MCH 29.7 MCHC 33.8 RDW 14.3 Plt Count 192 Neut % (Auto) Not Reportable Lymph % (Auto) Not Reportable [place] % (Auto) Not Reportable Eos % (Auto) Not Reportable Baso % (Auto) Not Reportable Lymph # (Auto) Not Reportable [place] # (Auto) Not Reportable Baso # (Auto) Not Reportable Total Counted 100 Seg Neutrophils % 31.0 L Band Neutrophils % 53.0 H Lymphocytes % (Manual) 6.0 L Monocytes % (Manual) 6.0 Metamyelocytes % 4.0 H Neutrophils # (Manual) 5712 Toxic Granulation Present H Toxic Vacuolation Present H Plt Morphology Comment RBC Morphology Normal morphology Sodium 136 L Potassium 3.5 Chloride 101 Carbon Dioxide 25 BUN 25 H Creatinine 0.68 Estimated GFR > 60 BUN/Creatinine Ratio 36.8 H Glucose 288 H Lactate 3.5 H 3.5 H Calcium 9.9 Total Bilirubin 1.4 H AST 33 ALT 29 Alkaline Phosphatase 154 H Total Creatine Kinase < 20 L Troponin I < 0.012 NT-Pro-B Natriuret Pep 3060 H Total Protein 6.7 Albumin 3.6 Globulin 3.1 Albumin/Globulin Ratio 1.2 Procalcitonin 1.64 H Urine RBC Urine WBC Ur Squamous Epith Cells Urine Bacteria Hyaline Casts Ur Culture Indicated? Vol Urine Centrifuged SARS-CoV-2 (PCR) Negative Influenza A (RT-PCR) Flu a negative Influenza B (RT-PCR) Flu b negative RSV (PCR) Negative 03/04/25 20:54 WBC RBC Hgb Hct MCV MCH MCHC RDW Plt Count Neut % (Auto) Lymph % (Auto) [place] % (Auto) Eos % (Auto) Baso % (Auto) Lymph # (Auto) [place] # (Auto) Baso # (Auto) Total Counted Seg Neutrophils % Band Neutrophils % Lymphocytes % (Manual) Monocytes % (Manual) Metamyelocytes % Neutrophils # (Manual) Toxic Granulation Toxic Vacuolation Plt Morphology Comment RBC Morphology Sodium Potassium Chloride Carbon Dioxide BUN Creatinine Estimated GFR BUN/Creatinine Ratio Glucose Lactate Calcium Total Bilirubin AST ALT Alkaline Phosphatase Total Creatine Kinase Troponin I NT-Pro-B Natriuret Pep Total Protein Albumin Globulin Albumin/Globulin Ratio Procalcitonin Urine RBC 0-1/hpf Urine WBC None seen Ur Squamous Epith Cells 5-10 /hpf H Urine Bacteria Few (2-10) H Hyaline Casts 0-1/lpf Ur Culture Indicated? Cult not indicated Vol Urine Centrifuged 10ml (spun) SARS-CoV-2 (PCR) Influenza A (RT-PCR) Influenza B (RT-PCR) RSV (PCR) Assessment & Plan Assessment & Plan narrative: Community-acquired pneumonia. Admit the patient to medical telemetry as inpatient. Of note the patient white blood cell is normal but patient was tachycardic and lactic acid was 3.5. The patient might have early sepsis. Continue IV ceftriaxone and IV azithromycin. Continue IV fluid and monitor hemodynamic. Elevated lactic acid. Continue IV fluid and antibiotics. Trend lactic acid to normal with IV fluid. Elevated B BNP. No evidence of volume overload. Unclear etiology. CT angio of chest shows no PE. Hold off any further Lasix due to possible early sepsis. Obtain echocardiogram in the morning. Acute respiratory failure with hypoxemia. Currently patient is on 2 L of oxygen. Likely due to bilateral pneumonia. Treat as above and wean down oxygen as able. Fentanyl abuse as outpatient. Patient has been counseled. As needed morphine for now as patient is going into withdrawal and has significant pain. Check urine tox screen Medical noncompliance. Of note patient does have history of diabetes but currently unaware of any medication that she takes on a regular basis. Will verify patient's home medication and resume them tomorrow. DVT prophylaxis heparin subcu. CODE STATUS full code. Disposition likely home in 2 days. - As the provider of this telehealth evaluation, requested by the patient's evaluating physician, I attest that I introduced myself to the patient, provided my credentials and determined that telemedicine via a real-time, 2 way interactive audio and video platform is an appropriate and effective means of providing this service. - I reviewed the patient's chart and had a discussion with the member of the patient's treatment team. - The patient and I mutually agreed with continuation of this evaluation via telemedicine. The patient consented for the telemedicine evaluation. - This virtual encounter was taken place from [place]. The encounter was approximately 35 minutes. The nurse was present during the entire time of the encounter and was able to move the stethoscope in appropriate directions. The patient was evaluated at [facility]. Time-Based Coding :: [TOTAL MINUTES] spent with patient and on the chart (including review of chart, obtaining history, exam, reviewing outside data, placing orders, documenting exam and treatment plan, and counseling patient) on [DATE].
[2025-03-05] MEDS: METOPROLOL TARTRATE 5 MG/5 ML INJ 10 MG IV (02:14)
[2025-03-05 02:28] LABS: Hematocrit 50.5 % (36-46); Hemoglobin 17.5 g/dL (12.0-16.0); Mean Corpuscular HGB Conc 34.7 % (30-36); Mean Corpuscular Hemoglobin 30.3 PG (26-34); Mean Corpuscular Volume 87.3 fL (80-100); Platelet Count 230 X10^3/uL (150-400); Red Blood Cell Count 5.78 X10^6/uL (4.0-5.2); Red Cell Distribution Width 14.4 % (11.6-14.8); White Blood Cell Count 4.6 X10^3/uL (4.5-11.0)
[2025-03-05 02:34] LABS: BUN Creatinine Ratio 33.3 (6-22); Blood Urea Nitrogen 24 mg/dL (7-17); Calcium 10.4 mg/dL (8.4-10.2); Carbon Dioxide 23 mmol/L (22-32); Chloride 103 mmol/L (98-107); Estimated Glomerular Filt Rate > 60 mL/min (>60); Glucose 186 mg/dL (70-99); HEMOLYSIS 15 (0-50); Sodium 139 mmol/L (137-145)
[2025-03-05 02:36] LABS: Add Manual Diff / Slide Review YES
[2025-03-05 02:37] LABS: Lactate (Lactic Acid) 4.2 mmol/L (0.7-2.1)
[2025-03-05 02:51] LABS: Ur Creatinine Normal (Normal); Ur Specific Gravity Normal (Normal); Urine pH Normal (Normal)
[2025-03-05 02:52] LABS: Urine Amphetamines Negative (Negative); Urine Barbiturates Negative (Negative); Urine Benzodiazepines Negative (Negative); Urine Cocaine Negative (Negative); Urine MDMA Negative (Negative); Urine Methadone Negative (Negative); Urine Opiates Negative (Negative); Urine Oxycodone Positive (Negative); Urine Phencyclidine Negative (Negative); Urine THC Negative (Negative); Urine Tricyclic Antidepressant Negative (Negative)
[2025-03-05] MEDS: FUROSEMIDE 40 MG/4 ML VIAL IV (03:10)
[2025-03-05 03:20] LABS: Neutrophils Absolute Manual 4140 /uL (3000-5900); RBC Morphology Normal Morphology; Total Cells Counted 100; Toxic Granulation Present
[2025-03-05 03:32] LABS: Allen Test for ABG Passed? Positive; Blood Gas Collection Site Right Radial; HCO3 ABG 24 mmol/L (23-27); Oxygen Saturation ABG 89 % (95-100); PO2 ABG 53 mmHg (80-100); TCO2 ABG 24 mmol/L (23-27); pH ABG 7.45 (7.35-7.45)
[2025-03-05 03:57] LABS: Reflexed Lactate in 2 Hours Y
--- NOTE | 2025-03-05 04:21 | DI.RAD.S_ITS ---
PROCEDURE: XR CHEST 1V INDICATIONS: hypoxemia TECHNIQUE: One view of the chest was acquired. COMPARISON: [facility], CR, XR CHEST 1V, 03/04/2025, 16:26. [facility], CR, XR CHEST 1V, 07/24/2021, 14:59. FINDINGS: Surgical changes and devices: Left shoulder arthroplasty. Enteric tube with tip and side port projecting over the expected location of the stomach. Endotracheal tube within the proximal right mainstem bronchus. Lungs and pleura: Multifocal bilateral pulmonary opacities. Small left pleural effusion. Mediastinum: Mediastinal contours appear normal. Heart size is normal. Bones and chest wall: No suspicious bony lesions. Overlying soft tissues appear unremarkable. IMPRESSION: Endotracheal tube within the right proximal mainstem bronchus. This was not reported on preliminary report put is retracted on subsequent chest x-ray. Multifocal bilateral pulmonary opacities and left pleural effusion. Dictated by: Ventura Jimenez M.D. on 03/05/2025 at 7:03 Approved by: Ventura Jimenez M.D. on 03/05/2025 at 7:06
[2025-03-05] MEDS: propofoL 1,000 MG/100 ML VIAL 2.449 MG IV (04:50)
--- NOTE | 2025-03-05 05:00 | DI.RAD.S_ITS ---
PROCEDURE: XR CHEST 1V INDICATIONS: hypoxic resp failure TECHNIQUE: One view of the chest was acquired. COMPARISON: [facility], CR, XR CHEST 1V, 03/05/2025, 4:29. [facility], CR, XR CHEST 1V, 03/04/2025, 16:26. FINDINGS: Surgical changes and devices: Right central venous catheter with tip projecting near the cavoatrial junction. Endotracheal tube with tip projecting 3.5 cm above the joi. Enteric tube with tip and side port projecting over the expected location of the stomach. Lungs and pleura: Multifocal bilateral opacities and small left pleural effusion. Mediastinum: Mediastinal contours appear normal. Heart size is stable. Bones and chest wall: No suspicious bony lesions. Overlying soft tissues appear unremarkable. IMPRESSION: 1. Interval retraction of endotracheal tube, now approximately 3.5 cm above the joi. Right central venous catheter with tip projecting over the cavoatrial junction. 2. Multifocal bilateral pulmonary opacities, greater on the right. Left pleural effusion. Similar to prior. Findings are concordant with preliminary interpretation provided by [facility]. Dictated by: Ventura Jimenez M.D. on 03/05/2025 at 7:13 Approved by: Ventura Jimenez M.D. on 03/05/2025 at 7:15
[2025-03-05] MEDS: MIDAZOLAM 2 MG/2 ML VIAL IV (05:16)
--- NOTE | 2025-03-05 05:48 | RT ---
Call to floor to do ABG pH 7.45 Pco2 35 P02 53 HCO3 24 O2 89 suggest to move pt to ICU teledoc wanted to wait for lab. Then I was called to 227 were they transferred pt and informed we were intubating 23 @ teeth and it was right main stem so backed to 21 at teeth the pt is stable on the vent Vt 400 RR 18 Peep 5 80% 02 [place] abg [place] 0700
--- NOTE | 2025-03-05 06:01 | PM.CN.EICU ---
History of Present Illness Consult details IF CAMERA ACTIVATED, patient seen via real-time interactive audiovisual communication: Camera activated Chief complaint: Malaise 2 Days Consent obtained for tele-relish blender care: Yes Patient Location: ICU Provider location (State): [place] Other participants/roles: RN Narrative: 69 yo F w/ PMHx significant for fentanyl abuse, hypothyroidism, PE, T2DM admitted overnight by tele-hospitalist Valerie for dyspnea and acute hypoxic respiratory insufficiency. ?Was given 20 mg IV furosemide for pitting edema/BNP elevation and started on ceftriaxone/doxycycline CAP coverage. ?Initial pCXR showed bibasilar infiltrates R > L. ?Worsened and eventually requiring 15 L Oxymask. ?ABG on this 7.45/35/53/24/89% with tachypnea in high 20s and low 30s. ?Viral panel was (-). Pul CTA (-) for PE. ?Lactate also ashok from initial value of 3.5 to 4.2. ?Antibiotics were escalated to vancomycin/Zosyn/azithromycin.?I was called by Dr. Padilla for consultation and advised orotracheal intubation. ?This was done and a central line was placed. ?She has been requiring small pushes of IV phenylephrine for hypotension and a NE gtt is about to be started through the freshly placed CVC.?Viral panel was (-). [facility] Medical History Wears glasses Allergies (~2011) Shoulder pain (~2018) Carpal tunnel syndrome (~2017) Anemia (~2017) History of recurrent ear infection Chronic pain disorder Seasonal allergies Respiratory infection Pulmonary embolism Hyperthyroidism Environmental allergies Iron deficiency Itchy scalp Hair loss Diabetes (Unknown) H/O deep venous thrombosis (Unknown) Low back pain (Unknown) Lupus (Unknown) Depression (1992) Migraines (Unknown) Fractures (Unknown) Fibromyalgia (Unknown) Chickenpox (Unknown) Glaucoma (Unknown) Irritable bowel syndrome (Unknown) Carpal tunnel syndrome of right wrist (12/25/17) Lipoma of right upper extremity (05/20/16) Bunion of great toe of left foot (01/28/16) Surgical History Anesthesia History of bunionectomy (~2008) H/O shoulder surgery (2013) H/O elbow surgery (2011) Family History Father Lung cancer Diabetes 1.5, managed as type 2 Heart disease Brother Heart disease Social History household members: family Smoking Status: Never smoker alcohol intake: never Current Medications Current Medications Medications: Home Medications No Known Home Medications 03/04/25 [History Confirmed 03/04/25] Visit Medications (administered) Generic Name Dose Route Start Last Admin Trade Name Freq PRN Reason Stop Dose Admin Sodium Chloride 1,000 mls @ 84 mls/hr 03/04/25 21:45 03/04/25 23:00 Normal Saline 0.9% IV 84 mls/hr CONT CARYN Administration Propofol 1,000 mg in 100 mls @ 2.449 mls/hr 03/05/25 05:00 03/05/25 05:06 Diprivan IV 10 mcg/kg/min TITRATE CARYN 4.899 mls/hr Titration Protocol 5 MCG/KG/MIN Exam Vital Signs (past 8 hours): - 03/04/25 22:14 03/04/25 22:51 03/05/25 03:16 Temperature 98.7 F 98.7 F 97.7 F Pulse Rate 109 H 109 H 118 H Respiratory Rate 26 H 19 42 H Blood Pressure 154/101 H 154/101 H 155/79 H Pulse Oximetry 92 92 94 Oxygen Flow Rate 4 4 13 Fraction of Inspired Oxygen 03/05/25 04:54 Temperature Pulse Rate Respiratory Rate Blood Pressure Pulse Oximetry Oxygen Flow Rate Fraction of Inspired Oxygen 1 Fraction of Inspired Oxygen 1 Oxygen Delivery Method Oximask Oxygen Flow Rate 13 Const General: comfortable and patient mechanically ventilated Resp Effort & Inspection: normal respiratory effort Cardio Rate: tachycardic Rhythm: regular rhythm Objective Labs 03/05/25 02:10 03/05/25 02:10 Labs: Laboratory Results - last 24 hr 03/04/25 03/04/25 03/04/25 14:20 17:32 19:38 WBC 6.8 RBC 5.25 H Hgb 15.6 Hct 46.2 H MCV 87.9 MCH 29.7 MCHC 33.8 RDW 14.3 Plt Count 192 Neut % (Auto) Not Reportable Lymph % (Auto) Not Reportable [place] % (Auto) Not Reportable Eos % (Auto) Not Reportable Baso % (Auto) Not Reportable Lymph # (Auto) Not Reportable [place] # (Auto) Not Reportable Baso # (Auto) Not Reportable Total Counted 100 Seg Neutrophils % 31.0 L Band Neutrophils % 53.0 H Lymphocytes % (Manual) 6.0 L Monocytes % (Manual) 6.0 Metamyelocytes % 4.0 H Neutrophils # (Manual) 5712 Toxic Granulation Present H Toxic Vacuolation Present H Plt Morphology Comment RBC Morphology Normal morphology ABG Sample Site ABG pH ABG pCO2 ABG pO2 ABG HCO3 ABG Total CO2 ABG O2 Saturation ABG Base Excess Mik Test Sodium 136 L Potassium 3.5 Chloride 101 Carbon Dioxide 25 BUN 25 H Creatinine 0.68 Estimated GFR > 60 BUN/Creatinine Ratio 36.8 H Glucose 288 H Lactate 3.5 H 3.5 H Calcium 9.9 Total Bilirubin 1.4 H AST 33 ALT 29 Alkaline Phosphatase 154 H Total Creatine Kinase < 20 L Troponin I < 0.012 NT-Pro-B Natriuret Pep 3060 H Total Protein 6.7 Albumin 3.6 Globulin 3.1 Albumin/Globulin Ratio 1.2 Procalcitonin 1.64 H Urine RBC Urine WBC Ur Squamous Epith Cells Urine Bacteria Hyaline Casts Ur Culture Indicated? Vol Urine Centrifuged U Opiates 300ng/mL cut Ur Oxycodone Screen Urine Methadone Screen Ur Barbiturates Screen U Tricyclic Antidepress Ur Phencyclidine Scrn Ur Amphetamines Screen U Methamphetamines Scrn Ur MDMA Scrn (Ecstasy) U Benzodiazepines Scrn Urine Cocaine Screen U Marijuana (THC) Screen Urine pH Urine Specific [place] Ur Creatinine SARS-CoV-2 (PCR) Negative Influenza A (RT-PCR) Flu a negative Influenza B (RT-PCR) Flu b negative RSV (PCR) Negative 03/04/25 03/05/25 03/05/25 20:54 02:00 02:10 WBC 4.6 RBC 5.78 H Hgb 17.5 H Hct 50.5 H MCV 87.3 MCH 30.3 MCHC 34.7 RDW 14.4 Plt Count 230 Neut % (Auto) Not Reportable Lymph % (Auto) Not Reportable [place] % (Auto) Not Reportable Eos % (Auto) Not Reportable Baso % (Auto) Not Reportable Lymph # (Auto) Not Reportable [place] # (Auto) Not Reportable Baso # (Auto) Not Reportable Total Counted 100 Seg Neutrophils % 35.0 L Band Neutrophils % 55.0 H Lymphocytes % (Manual) 5.0 L Monocytes % (Manual) 2.0 Metamyelocytes % 3.0 H Neutrophils # (Manual) 4140 Toxic Granulation Present H Toxic Vacuolation Plt Morphology Comment RBC Morphology Normal morphology ABG Sample Site ABG pH ABG pCO2 ABG pO2 ABG HCO3 ABG Total CO2 ABG O2 Saturation ABG Base Excess Mik Test Sodium 139 Potassium 3.0 L Chloride 103 Carbon Dioxide 23 BUN 24 H Creatinine 0.72 Estimated GFR > 60 BUN/Creatinine Ratio 33.3 H Glucose 186 H D Lactate 4.2 H* Calcium 10.4 H Total Bilirubin AST ALT Alkaline Phosphatase Total Creatine Kinase Troponin I NT-Pro-B Natriuret Pep Total Protein Albumin Globulin Albumin/Globulin Ratio Procalcitonin Urine RBC 0-1/hpf Urine WBC None seen Ur Squamous Epith Cells 5-10 /hpf H Urine Bacteria Few (2-10) H Hyaline Casts 0-1/lpf Ur Culture Indicated? Cult not indicated Vol Urine Centrifuged 10ml (spun) U Opiates 300ng/mL cut Negative Ur Oxycodone Screen Positive H Urine Methadone Screen Negative Ur Barbiturates Screen Negative U Tricyclic Antidepress Negative Ur Phencyclidine Scrn Negative Ur Amphetamines Screen Negative U Methamphetamines Scrn Negative Ur MDMA Scrn (Ecstasy) Negative U Benzodiazepines Scrn Negative Urine Cocaine Screen Negative U Marijuana (THC) Screen Negative Urine pH Normal Urine Specific [place] Normal Ur Creatinine Normal SARS-CoV-2 (PCR) Influenza A (RT-PCR) Influenza B (RT-PCR) RSV (PCR) 03/05/25 03:27 WBC RBC Hgb Hct MCV MCH MCHC RDW Plt Count Neut % (Auto) Lymph % (Auto) [place] % (Auto) Eos % (Auto) Baso % (Auto) Lymph # (Auto) [place] # (Auto) Baso # (Auto) Total Counted Seg Neutrophils % Band Neutrophils % Lymphocytes % (Manual) Monocytes % (Manual) Metamyelocytes % Neutrophils # (Manual) Toxic Granulation Toxic Vacuolation Plt Morphology Comment RBC Morphology ABG Sample Site Right radial ABG pH 7.45 ABG pCO2 35.0 ABG pO2 53 L ABG HCO3 24 ABG Total CO2 24 ABG O2 Saturation 89 L ABG Base Excess 1.0 Mik Test Positive Sodium Potassium Chloride Carbon Dioxide BUN Creatinine Estimated GFR BUN/Creatinine Ratio Glucose Lactate Calcium Total Bilirubin AST ALT Alkaline Phosphatase Total Creatine Kinase Troponin I NT-Pro-B Natriuret Pep Total Protein Albumin Globulin Albumin/Globulin Ratio Procalcitonin Urine RBC Urine WBC Ur Squamous Epith Cells Urine Bacteria Hyaline Casts Ur Culture Indicated? Vol Urine Centrifuged U Opiates 300ng/mL cut Ur Oxycodone Screen Urine Methadone Screen Ur Barbiturates Screen U Tricyclic Antidepress Ur Phencyclidine Scrn Ur Amphetamines Screen U Methamphetamines Scrn Ur MDMA Scrn (Ecstasy) U Benzodiazepines Scrn Urine Cocaine Screen U Marijuana (THC) Screen Urine pH Urine Specific [place] Ur Creatinine SARS-CoV-2 (PCR) Influenza A (RT-PCR) Influenza B (RT-PCR) RSV (PCR) Assessment & Plan Assessment and plan (1) Acute hypoxic respiratory failure: Status: Acute Plan: -Vent bundle -Culture sputum -Continue vancomycin/Zosyn/azithromycin -Check MRSA -Propofol/fentanyl analgosedation -Follow up post-intubation pCXR/ABG (2) Septic shock: Status: Acute Plan: -Starting NE (3) Diabetes mellitus type 2, diet-controlled: Status: Chronic Plan: -Correctional insulin Time-Based Coding :: VTE prophylaxis: enoxaparin Stress ulcer prophylaxis: pantoprazole I spent a total of 35 minutes of aggregate critical care time today on this patient's care; this time excludes all procedural time.
[2025-03-05] MEDS: propofoL 1,000 MG/100 ML VIAL 4.899 MG IV (06:12)
[2025-03-05] MEDS: fentaNYL 1,000 MCG in DEXTROSE 5% IN WATER 230 ML 14.288 MCG IV (06:18)
[2025-03-05] MEDS: NOREPINEPHRINE BITARTRATE/D5W 4 MG/250 ML PLAST..BAG 30.618 MG IV (06:39)
[2025-03-05] MEDS: SODIUM CHLORIDE 0.9% 1,000 ML 84 ML IV (06:44)
[2025-03-05] MEDS: PIPERACILLIN/TAZO 3.375 GM in SODIUM CHLORIDE 0.9% 100 ML IV ×2 (06:45→12:04)
--- NOTE | 2025-03-05 06:52 | P.PCN_ITS ---
Invasive Monitor Note Procedure Procedure: Central Venous Catheter Insertion Start Time: 05:00 Stop Time: 05:50 Indication: Medical Management Timeout: 04:59 Barrier Precautions Utilized: Cap, Mask, Hand Hygiene, 2% Chlorhexidine Cutaneous Antisepsis, Sterile Gloves, Sterile Gown, Large Sterile Drape Sheet and Maintenance of Sterile Field Vessel Utilized: Internal Jugular Vein: Right Lines Catheters Utilized: 7.5 [place] Triple Lumen Catheter Insertion Site Care: Sterile Occlusive Dressing Applied Clinical indicators suggest catheter tip resides in: Right Internal Jugular (3 ports aspirate and flush easily. CXR wet read shows catheter tip in SVC approximately at RA) Ultrasound Ultrasound Guidance Utilized: Yes Ultrasound was used to identify the vessel. Assessed vessel was patent.: Internal Jugular Vein Ultrasound was used to visualize vascular needle entry into the: Internal Jugular Vein Limited exam reveals anatomically normal vessel with no apparent abnormal f indings.: Yes Permanent ultrasound image obtained and interpretation documented.: No Complications Complications: none
[2025-03-05] MEDS: PHENYLEPHRINE HCL IN 0.9% NACL 1 MG/10 ML SYRINGE INJ (06:58)
--- NOTE | 2025-03-05 07:25 | PC.NURSE ---
Addendum entered by Ada Becerra R.N. 03/05/25 07:40: Current vent settings: AC with 100% Fi02, TV-400, RR-18, PEEP-5 with sats in the mid 90's. Original Note: Pt. transferred from Acute Care to ICU for increasing 02 demand, dyspnea, tachypnea, and tachycardia. Upon arrival pt. was very short of breath, lungs sounds wet throughout and c/o also chest and back pain and was cold and clammy. Dr. Padilla informed of the situation and decision was made to intubate the pt. Pt. lose her only IV upon arrival to the unit and pt. is a very difficult stick. Rapid Respond activated. Several attempts were made to have an IV line in and finally Silvana from ER was able to place a 22g on pt's left hand. RSI was performed ( see flowsheet of details on what meds were given). 7.0 ETT was placed as well as OGT. A right IJ was placed after ETT was placed and an attempt to place an arterial line was made but unsuccessful. Several meds were hung including Propofol, fentany, and norepi gtt (see MAR). Pt. now sedated with bilateral mitts on. Report given to Delmi Bass.
[2025-03-05 07:44] LABS: Blood Gas Collection Site Left Brachial; Blood Gas Mode Pressure Reg Vol Con; HCO3 ABG 25 mmol/L (23-27); Oxygen Saturation ABG 94 % (95-100); PCO2 ABG 46.4 mmHg (35-45); PEEP 6; PO2 ABG 78 mmHg (80-100); Respiratory Rate 18; TCO2 ABG 24 mmol/L (23-27); pH ABG 7.33 (7.35-7.45)
--- NOTE | 2025-03-05 07:57 | PC.NURSE ---
Addendum entered by Delmi Catalan R.N. 03/05/25 14:02: EDIT TO ADD: New bottle of propofol given to flight crew for en route. Pt awaking during transition to transport stretcher, RASS +2, flight RN increased propofol. Zosyn still running, fentanyl still running, norepinephrine still running, vasopressin still running at time of transport. Addendum entered by Delmi Catalan R.N. 03/05/25 13:54: [facility] arrived to room 227 at approximately 1300. Report given to flight nurses Rose and Tanja. Pt transferred to transport monitor, ventilator, and pumps. Family updated and son at bedside. Pt transported to helicopter via stretcher with flight crew at approximately 1330. Report given to Sanjuanita ACOSTA at [facility] at [phone] for room 742 bed 1. Addendum entered by Delmi Catalan R.N. 03/05/25 11:41: Pt continues to be tachypneic, BP WDL with ordered medications (See MAR and monitor capture vitals). Oxygen saturation 89%-94%. RR in 40's. HR sinus tachycardia 120's sustained. Family at bedside, updated on plan to transfer to higher level of care. Provider Dr. Rodgers at bedside. IV start attempted, unsuccessful with ultrasound. Care ongoing. Addendum entered by Delmi Catalan R.N. 03/05/25 09:05: Placed urinary catheter, pt attempting to sit up in bed, reaching for lines. Fentanyl bolus provided through IV fentanyl drip of 25mcg per bolus twice. RR 30-45, saturation 87%-90%. RASS -3, continues with tachypnea, breath sounds present in lung lam, crackles in the bases, provider Dr. Rodgers notified. RT at bedside. Critical lab results relayed for provider Dr. oRdgers. Care ongoing. Original Note: Day shift: Pt eyes open, facial grimacing, and reaching for lines. Mittens in place. Diaphoretic, clammy, and skin dusky in appearance. Provider Dr. Rodgers at bedside. Abdominal binder removed, bowel tones absent. Cap refill in extremities slow >4 seconds and dusky. New orders received. Care ongoing.
[2025-03-05 07:59] LABS: Acinetobacter calcoa-baumannii Not Detected (Not Detect); Bacteroides fragilis Not Detected (Not Detect); Candida albicans Not Detected (Not Detect); Candida auris Not Detected (Not Detect); Candida glabrata Not Detected (Not Detect); Candida krusei Not Detected (Not Detect); Candida parapsilosis Not Detected (Not Detect); Candida tropicalis Not Detected (Not Detect); Cryptococcus neoformans/gatti Not Detected (Not Detect); Enterobacter cloacae complex Not Detected (Not Detect); Enterobacterales Not Detected (Not Detect); Enterococcus faecalis Not Detected (Not Detect); Enterococcus faecium Not Detected (Not Detect); Haemophilus influenzae Not Detected (Not Detect); Klebsiella aerogenes Not Detected (Not Detect); Listeria monocytogenes Not Detected (Not Detect); Neisseria meningitidis Not Detected (Not Detect); Proteus species Not Detected (Not Detect); Pseudomonas aeruginosa Not Detected (Not Detect); Salmonella species Not Detected (Not Detect); Serratia marcescens Not Detected (Not Detect); Staphylococcus epidermidis Detected (Not Detect); Staphylococcus lugdunensis Not Detected (Not Detect); Staphylococcus species Detected (Not Detect); Stenotrophomonas maltophilia Not Detected (Not Detect); Streptococcus agalactiae (Gr B Not Detected (Not Detect); Streptococcus pneumonia Not Detected (Not Detect); Streptococcus pyogenes (Gr A) Not Detected (Not Detect); Streptococcus species Not Detected (Not Detect); mecA/C Resistance Detected (Not Detect)
[2025-03-05 08:07] LABS: Hematocrit 51.1 % (36-46); Mean Corpuscular HGB Conc 33.2 % (30-36); Mean Corpuscular Hemoglobin 29.4 PG (26-34); Mean Corpuscular Volume 88.4 fL (80-100); Platelet Count 269 X10^3/uL (150-400); Red Blood Cell Count 5.77 X10^6/uL (4.0-5.2); Red Cell Distribution Width 14.5 % (11.6-14.8); White Blood Cell Count 15.6 X10^3/uL (4.5-11.0)
[2025-03-05 08:25] LABS: Creatine Kinase < 20 U/L (30-135)
[2025-03-05 08:26] LABS: Alanine Aminotransferase 28 IU/L (<35); Albumin 3.4 g/dL (3.5-5.0); Albumin Globulin Ratio 1.1 (1.0-2.8); Alkaline Phosphatase 131 U/L (38-126); Aspartate Aminotransferase 49 IU/L (14-36); BUN Creatinine Ratio 28.8 (6-22); Bilirubin Total 2.2 mg/dL (0.2-1.3); Blood Urea Nitrogen 30 mg/dL (7-17); Calcium 10.1 mg/dL (8.4-10.2); Carbon Dioxide 23 mmol/L (22-32); Chloride 100 mmol/L (98-107); Estimated Glomerular Filt Rate 59 mL/min (>60); Glucose 242 mg/dL (70-99); HEMOLYSIS 16 (0-50); Potassium 3.1 mmol/L (3.4-5.1); Sodium 139 mmol/L (137-145); Total Protein 6.4 g/dL (6.3-8.2)
[2025-03-05 08:30] LABS: Lactate (Lactic Acid) 5.2 mmol/L (0.7-2.1)
[2025-03-05 08:31] LABS: Add Manual Diff / Slide Review YES
[2025-03-05 08:44] LABS: Neutrophils Absolute Manual 12012 /uL (3000-5900); Total Cells Counted 100
[2025-03-05 08:45] LABS: Polychromasia 1+; Toxic Granulation Present
[2025-03-05 08:47] LABS: Platelet Estimate Adequate on smear
[2025-03-05 09:13] LABS: Troponin I 0.122 ng/mL (0.01-0.034)
[2025-03-05 09:23] LABS: MRSA (Nasal) PCR DETECTED (Not Detect)
[2025-03-05] MEDS: INSULIN LISPRO 100 UNIT/ML 3ML VIAL SUBCUT (09:24)
[2025-03-05 09:31] LABS: Reflexed Lactate in 2 Hours Y
--- NOTE | 2025-03-05 09:36 | DI.ECHO.S_ITS ---
[facility] : : [address] : : [place] : : [id number] : : Phone: [phone] Echocardiogram Report + + :Name: PARENTROSALIND Study Date: 03/05/2025 Height: 63 in : :[facility] ReadingLocation: Weight: 180 lb: : Gender: Female BSA: 1.8 m2 : :: 1955 Age: 69 yrs BP: 75/50 mmHg: :Reason For Study: HEART FAILURE : :Ordering Physician: JAIME, : :CHECO Performed By: Bo Cobos : :Referring: CHECO SANDOVAL : + + Interpretation Summary TDS - POOR WINDOWS. Regular narrow QRS tachycardia rate 100-120 bpm. The left ventricle is normal in size. Left ventricular systolic function is moderately reduced. Left ventricular ejection fraction is estimated to be 40 +/- 5%. There is septal wall hypokinesis. The right ventricle is grossly normal size. Right ventricular systolic function is mildly reduced. No significant valvular pathology. Right ventricular systolic pressure is estimated to be 28 mmHg plus the clinically estimated CVP which cannot be estimated on this exam. Procedure: A two-dimensional transthoracic echocardiogram with color flow and Doppler was performed. A contrast injection of Definity was performed to improve assessment of LV function. The study quality was technically difficult. There is no prior echocardiogram noted for this patient. Regular narrow QRS tachycardia rate 100-120 bpm. Left Ventricle: The left ventricle is normal in size. Proximal septal thickening is noted. There is no thrombus. Left ventricular systolic function is moderately reduced. Left ventricular ejection fraction is estimated to be 40 +/- 5%. There is septal wall hypokinesis. Inferior wall was not well- visualized. Diastolic function could not be accurately assessed due to tachycardia. Right Ventricle: The right ventricle is grossly normal size. Right ventricular systolic function is mildly reduced. Atria: The left atrial size is normal. Right atrial size is normal. There is no Doppler evidence for an interatrial shunt. Mitral Valve: There is mild mitral annular calcification. There is trace mitral regurgitation. Aortic Valve: The aortic valve is slightly calcified. The aortic valve is not well visualized. There is no aortic valve stenosis. Tricuspid Valve: The tricuspid valve is not well visualized, but is grossly normal. There is trace tricuspid regurgitation. Right ventricular systolic pressure is estimated to be 28 mmHg plus the clinically estimated CVP which cannot be estimated on this exam. Pulmonic Valve: The pulmonic valve is not well visualized. There is no pulmonic valvular regurgitation. Great Vessels: The aortic root is normal size. The dimensions of the ascending aorta are normal. The pulmonary artery is normal size. Inspiratory collapse cannot be assessed because of mechanical ventilation, thus CVP cannot be estimated.. Pericardium/ Pleura There is no pericardial effusion. There is no pleural effusion. MMode/2D Measurements & Calculations LVIDd: 3.5 cm LVOT diam: 1.9 cm LVIDs: 3.0 cm Ao root diam: 3.2 cm FS: 13.5 % asc Aorta Diam: 3.5 cm EPSS: 0.97 cm IVSd: 1.0 cm LVPWd: 0.96 cm LV white. diameter/BSA (cm/m^2): 1.9 LV sys. diameter/BSA (cm/m^2): 1.6 LA A2 area: 16.7 cm2 RA long axis: 3.5 cm LA A4 area: 12.0 cm2 RA area: 8.3 cm2 LA length (vol): 4.6 cm RA vol: 16.8 ml LA vol: 36.9 ml RA : 9.1 ml/m2 LA vol index: 19.9 ml/m2 IVC diam: 1.4 cm RVD1 (basal): 2.7 cm RVD2 (mid): 2.0 cm TAPSE: 1.2 cm Doppler Measurements & Calculations Ao V2 max: 125.4 cm/sec LVOT Max Jose: 88.6 cm/sec Ao V2 mean: 99.2 cm/sec LV V1 max P.1 mmHg Ao max P.3 mmHg LV V1 VTI: 8.6 cm Ao mean P.2 mmHg MARK(I,D): 1.5 cm2 Ao V2 VTI: 16.2 cm MARK(V,D): 2.0 cm2 sev ratio: 0.53 MARK indexed to BSA (cm^2/m^2): 0.83 MV E max jose: 38.0 cm/sec TR max jose: 264.1 cm/sec MV A max jose: 30.2 cm/sec TR max P.9 mmHg MV E/A: 1.3 PA V2 max: 69.3 cm/sec Med Peak E' Jose: 4.0 cm/sec PA V2 mean: 52.1 cm/sec E/E' med: 9.5 PA mean P.2 mmHg Lat Peak E' Jose: 4.5 cm/sec PA pr(Accel): 48.2 mmHg E/E' lat: 8.5 E/e' average: 9.0 MV dec time: 0.15 sec SVLVOT): 24.9 ml Reading Physician:12:38 PM
--- NOTE | 2025-03-05 09:48 | EKG_ITS ---
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
[2025-03-05] MEDS: VASOPRESSIN 40 UNIT in SODIUM CHLORIDE 0.9% 100 ML 4.5 UNIT IV (10:06)
[2025-03-05 10:36] LABS: Lactate 2HR (Lactic Acid Rflx) 7.8 mmol/L (0.7-2.1)
[2025-03-05] MEDS: SODIUM BICARB 8.4% SYRINGE 100 MEQ IV (10:38)
[2025-03-05] MEDS: AZITHROMYCIN 500 MG in DEXTROSE 5% IN WATER 250 ML 250 MG IV (10:42)
[2025-03-05] MEDS: ALBUMIN HUMAN 12.5 GM/50 ML VIAL IV (10:55)
--- NOTE | 2025-03-05 10:56 | PM.ICURNDS ---
- :: This patient was seen via real time interactive two-way audiovisual telecommunication. Note: At the start of the round the pt was on high dose of levo, hypoxic despite on 100% Fio2, lactic acidosis getting worse. Sedation held, Added vasopreessin , albumin 25 % 25 gm given, 100 mwq of Bicarb IV given, now HD slightly better, on vaso and coming down of levo, gving 50 gm of albumin 25% and starting stress dose steroid, PEEP was increased to 10, Sat 95% on 95% Fio2, septic shock , sever multifocal PNA and ARDS, seddatin with propfol and fenatnyl started, pronning not feasible at the current facility per the team, I agree to transfer to higher level of care.
[2025-03-05 11:00] LABS: Base Excess ABG -1.5 mmol/L (-2-3); Blood Gas Mode Assist Cont Ventilat; Delivery System Adult Ventilator; HCO3 ABG 26 mmol/L (23-27); Oxygen Saturation ABG 93 % (95-100); PCO2 ABG 49.5 mmHg (35-45); PEEP 10; PO2 ABG 73 mmHg (80-100); Respiratory Rate 33; TCO2 ABG 25 mmol/L (23-27); pH ABG 7.32 (7.35-7.45)
[2025-03-05 11:03] LABS: Blood Gas Collection Site Left Brachial; Fractionated Inspired Oxygen 95 %; Tidal Volume 280
[2025-03-05] MEDS: CHLORHEXIDINE GLUCONATE 15 ML CUP PO ×2 (11:05→12:05)
[2025-03-05] MEDS: SODIUM CHLORIDE 0.9% FLUSH 10 ML IV (11:05)
[2025-03-05] MEDS: PANTOPRAZOLE 40 MG VIAL IV (11:06)
[2025-03-05] MEDS: NOREPINEPHRINE BITARTRATE/D5W 4 MG/250 ML PLAST..BAG 91.853 MG IV (11:30)
[2025-03-05] MEDS: HYDROCORTISONE 100 MG/2 ML VIAL IV (11:37)
[2025-03-05] MEDS: ALBUMIN HUMAN 50 GM/200 ML VIAL IV (11:37)
[2025-03-05 12:18] LABS: Lactate (Lactic Acid) 6.5 mmol/L (0.7-2.1)
--- NOTE | 2025-03-05 13:01 | P.DS_ITS ---
History of Present Illness History of Present Illness Chief complaint: Malaise 2 Days Narrative: Per H&P: 69-year-old female with past medical history of fentanyl abuse, hypothyroidism, pulmonary embolism, diabetes, migraines, and irritable bowel syndrome presents with coughing and shortness of breath. Per the patient's report, over the last few days, the patient has been having increasing shortness of breath with a productive cough. The patient however denies any fever, chills, nausea, vomiting, diarrhea syncope. The patient admits that whenever she cough or takes deep breath, the patient has pleuritic chest pain accross her entire chest. The patient later admits that she does abuse fentanyl. In the emergency room, the patient was hemodynamically stable with slight tachycardia. The patient was requiring 2-3 L of oxygen per nasal cannula. WBC was normal but lactic acid was 3.5. BNP was 3,060. IV ceftriaxone and IV azithromycin was given. 20 mg of IV Lasix was given. Chest x-ray shows signs of pneumonia but no signs of volume overload. Patient does not have pitting edema per ER physician. CT angio of the chest was done which shows again bilateral pneumonia but no evidence of volume overload. IV fluid was started after repeated lactic acid to be 3.5 which is some change. Discharge Providers Provider Date of admission: 03/04/25 20:32 Discharge Date: 03/05/25 Primary care physician: Doctor Chris MD Consults: 03/05/25 04:52 Consult to Dietitian, Adult Routine Comment: Reason For Exam: Patient on Ventilator and NPO Discharge provider: Candie Rodgers MD Summary Hospital Course Discharge Diagnosis: 1. Septic shock 2. Acute hypoxic respiratory failure 3. Bilateral pneumonia 4. ARDS 5. Acute oliguric renal failure 6. Acute systolic congestive heart failure 7. Demand ischemia 8. Possible upper GI bleed 9. Diabetes mellitus type 2 10. Fentanyl abuse 11. Remote history of pulmonary emboli Hospital Course: Patient presented to the emergency department with a several day history of worsening shortness of breath and productive cough. She denied fever, chills, nausea, vomiting or diarrhea. She was having pleuritic chest pain. She initially required 2-3 L of oxygen via nasal cannula. She had a normal white blood cell count, elevated lactate at 3.5, and a BNP of 3060. She was given IV Lasix 20 mg in the emergency department. Blood cultures were drawn. CT pulmonary angiogram was done which revealed bilateral pneumonia. She was placed on IV Rocephin and azithromycin. Several hours after arriving on the medical floor, patient has had progressive decompensation. She had increasing oxygen requirements up to 14 L via OxyMask. She developed progressive lactic acidosis. ABG revealed worsening hypoxemia. Stat chest x-ray showed worsening severe bilateral pneumonia concerning for ARDS. Telehealth ICU consult was obtained. Patient was subsequently intubated by the ED provider and central line was placed by anesthesia. Antibiotics were also broaden to Zosyn, vancomycin, and azithromycin. She did require the addition of norepinephrine for pressor support. Morning labs revealed an increase in lactate from 4.2-5.2. BUN had increased from 24-30 and creatinine had increased from 0.72-1.04. Bilirubin was mildly elevated at 2.2. AST was 49, ALT 28. Troponin was elevated at 0.122, which was increased from less than 0.012 yesterday evening. White blood cell count increased from 4.6 at 2:00 a.m. to 15.6. Patient was noted to have a progressively worsening clinical picture with increased diaphoresis, digital cyanosis, and cold distal extremities. Plans were made for CT of the abdomen and pelvis. However, patient became increasingly unstable with progressive hypoxia and tachypnea (sats in the 80s, respiratory rate in the 30s to 40s) and hypotension with systolic pressures down into the 70s despite increase norepinephrine. She required additional resuscitative efforts, inclusive of increased ventilatory support (peep increased to 10), addition of a 2nd vasopressor, albumin, stress dose steroids, and 2 amps of bicarb were ordered by tele-fiber optic central office installer. Family was contacted about patient's decompensation and urged to come to the hospital due to her worsening status. Efforts were underway as well to look at transferring patient to a higher level of care. Patient's vital signs did improve with the additional interventions. Of note there is approximately 400 cc of dark material with coffee-grounds noted in the canister from his OG tube. Patient was accepted by [facility], Dr. Jadiel noriega, medical fiber optic central office installer. There was some discussion with [facility] ECMO provider, but it was not felt that was necessary at least upon her arrival there. I did discuss with the family that she is at high risk for mortality. They understand she could further decompensate on her flight to [place]. They are willing to take that risk to get her to a higher level of care. They confirmed ongoing goals of care include aggressive interventions. We discussed possibility of need for dialysis and they confirmed the desire to proceed as necessary to save her life. Family present during this discussion with the patient's daughter, son, and granddaughter. Blood cultures drawn 426 revealed 1/4 cultures growing Gram-positive cocci PCR shows staph epi detected, methicillin resistance gene detected Flu a and B were negative, RSV negative, COVID negative Legionella antigen pending Lactate at 9:56 a.m. was 7.8 which was its peak, at 12:00 p.m. it was down to 6.5. Patient is discharged in critical condition Status at Discharge Functional status at discharge: bed bound Overall status at discharge: other Time Spent with Patient Time spent: Greater than 30 minutes Exam Vital Signs (past 8 hours): - 03/05/25 05:25 03/05/25 06:00 03/05/25 06:30 Temperature Pulse Rate 108 H 104 H 103 H Respiratory Rate 18 18 18 Blood Pressure 63/40 L 95/57 L 88/51 L Pulse Oximetry 96 93 91 Oxygen Delivery Method 03/05/25 07:39 03/05/25 07:45 03/05/25 07:45 Temperature Pulse Rate 111 H 109 H Respiratory Rate 19 20 Blood Pressure 115/59 L Pulse Oximetry 94 93 Oxygen Delivery Method 03/05/25 07:56 03/05/25 08:00 03/05/25 08:01 Temperature Pulse Rate 109 H 112 H Respiratory Rate 21 23 Blood Pressure Pulse Oximetry 94 94 Oxygen Delivery Method Mechanical Ventilation 03/05/25 08:01 03/05/25 08:16 03/05/25 08:16 Temperature Pulse Rate 105 H Respiratory Rate 22 Blood Pressure 122/83 92/68 Pulse Oximetry 92 Oxygen Delivery Method 03/05/25 08:30 03/05/25 08:33 03/05/25 08:33 Temperature Pulse Rate 105 H 106 H Respiratory Rate 23 23 Blood Pressure 107/69 Pulse Oximetry 92 92 Oxygen Delivery Method 03/05/25 09:15 03/05/25 09:16 03/05/25 09:17 Temperature Pulse Rate 104 H 104 H Respiratory Rate 40 H 41 H Blood Pressure 105/50 L Pulse Oximetry 88 L Oxygen Delivery Method 03/05/25 09:17 03/05/25 09:18 03/05/25 09:19 Temperature Pulse Rate 102 H 102 H 101 H Respiratory Rate 40 H 40 H 40 H Blood Pressure Pulse Oximetry 93 86 L 92 Oxygen Delivery Method 03/05/25 09:20 03/05/25 09:21 03/05/25 09:22 Temperature Pulse Rate 101 H 101 H 101 H Respiratory Rate 39 H 40 H 40 H Blood Pressure Pulse Oximetry 87 L 77 L 69 L Oxygen Delivery Method 03/05/25 09:23 03/05/25 09:24 03/05/25 09:25 Temperature Pulse Rate 101 H 101 H 100 H Respiratory Rate 40 H 38 H 39 H Blood Pressure Pulse Oximetry 81 L 85 L 83 L Oxygen Delivery Method 03/05/25 09:26 03/05/25 09:27 03/05/25 09:27 Temperature 99.4 F Pulse Rate 100 H 100 H Respiratory Rate 41 H 39 H Blood Pressure Pulse Oximetry 83 L 82 L Oxygen Delivery Method 03/05/25 09:28 03/05/25 09:29 03/05/25 09:30 Temperature Pulse Rate 100 H 98 H 98 H Respiratory Rate 40 H 38 H 39 H Blood Pressure Pulse Oximetry 88 L Oxygen Delivery Method 03/05/25 09:31 03/05/25 09:31 03/05/25 09:32 Temperature Pulse Rate 99 H 98 H Respiratory Rate 38 H 40 H Blood Pressure 82/50 L Pulse Oximetry 87 L 87 L Oxygen Delivery Method 03/05/25 09:33 03/05/25 09:34 03/05/25 09:35 Temperature Pulse Rate 98 H 98 H 98 H Respiratory Rate 38 H 39 H 39 H Blood Pressure Pulse Oximetry 88 L 87 L 87 L Oxygen Delivery Method 03/05/25 09:36 03/05/25 09:36 03/05/25 09:37 Temperature Pulse Rate 100 H 97 H Respiratory Rate 37 H 39 H Blood Pressure 78/53 L Pulse Oximetry 87 L 87 L Oxygen Delivery Method 03/05/25 09:38 03/05/25 09:38 03/05/25 09:39 Temperature Pulse Rate 99 H 98 H Respiratory Rate 32 H 38 H Blood Pressure 79/57 L Pulse Oximetry 87 L 86 L Oxygen Delivery Method 03/05/25 09:40 03/05/25 09:40 03/05/25 09:41 Temperature Pulse Rate 97 H 98 H Respiratory Rate 38 H 39 H Blood Pressure 74/54 L Pulse Oximetry 85 L 85 L Oxygen Delivery Method 03/05/25 09:41 03/05/25 09:42 03/05/25 09:42 Temperature Pulse Rate 99 H Respiratory Rate 39 H Blood Pressure 73/57 L 78/62 L Pulse Oximetry 85 L Oxygen Delivery Method 03/05/25 09:43 03/05/25 09:44 03/05/25 09:44 Temperature Pulse Rate 100 H 100 H Respiratory Rate 39 H 34 H Blood Pressure 80/60 L Pulse Oximetry 85 L 85 L Oxygen Delivery Method 03/05/25 09:45 03/05/25 09:46 03/05/25 09:47 Temperature Pulse Rate 101 H 101 H Respiratory Rate 34 H 37 H Blood Pressure 75/50 L Pulse Oximetry 84 L 86 L Oxygen Delivery Method 03/05/25 09:47 03/05/25 09:48 03/05/25 09:49 Temperature Pulse Rate 103 H 102 H 104 H Respiratory Rate 32 H 32 H 36 H Blood Pressure Pulse Oximetry 86 L 85 L 88 L Oxygen Delivery Method 03/05/25 09:49 03/05/25 09:50 03/05/25 09:50 Temperature Pulse Rate 105 H Respiratory Rate 32 H Blood Pressure 105/69 81/52 L Pulse Oximetry 87 L Oxygen Delivery Method 03/05/25 09:51 03/05/25 09:52 03/05/25 09:53 Temperature Pulse Rate 108 H 103 H Respiratory Rate 32 H 34 H Blood Pressure 85/47 L Pulse Oximetry 91 90 L Oxygen Delivery Method 03/05/25 09:53 03/05/25 09:54 03/05/25 09:54 Temperature Pulse Rate 100 H 107 H Respiratory Rate 39 H 38 H Blood Pressure 80/53 L Pulse Oximetry 90 L 87 L Oxygen Delivery Method 03/05/25 09:55 03/05/25 09:56 03/05/25 09:57 Temperature Pulse Rate 113 H 115 H 112 H Respiratory Rate 39 H 39 H 39 H Blood Pressure Pulse Oximetry 88 L 90 L 91 Oxygen Delivery Method 03/05/25 09:58 03/05/25 09:59 03/05/25 10:00 Temperature Pulse Rate 111 H 111 H 111 H Respiratory Rate 39 H 39 H 40 H Blood Pressure Pulse Oximetry 91 91 91 Oxygen Delivery Method 03/05/25 10:01 03/05/25 10:01 03/05/25 10:02 Temperature Pulse Rate 111 H Respiratory Rate 40 H Blood Pressure 104/63 108/66 Pulse Oximetry 91 Oxygen Delivery Method 03/05/25 10:02 03/05/25 10:03 03/05/25 10:04 Temperature Pulse Rate 113 H 113 H 113 H Respiratory Rate 39 H 39 H 38 H Blood Pressure Pulse Oximetry 91 91 91 Oxygen Delivery Method 03/05/25 10:05 03/05/25 10:05 03/05/25 10:06 Temperature Pulse Rate 112 H 112 H Respiratory Rate 40 H 41 H Blood Pressure 99/62 Pulse Oximetry 92 89 L Oxygen Delivery Method 03/05/25 10:07 03/05/25 10:08 03/05/25 10:09 Temperature Pulse Rate 113 H 113 H 113 H Respiratory Rate 40 H 40 H 40 H Blood Pressure Pulse Oximetry 89 L 89 L 91 Oxygen Delivery Method 03/05/25 10:10 03/05/25 10:11 03/05/25 10:11 Temperature Pulse Rate 114 H 114 H Respiratory Rate 40 H 40 H Blood Pressure 110/77 Pulse Oximetry 90 L 90 L Oxygen Delivery Method 03/05/25 10:12 03/05/25 10:13 03/05/25 10:14 Temperature Pulse Rate 115 H 116 H 119 H Respiratory Rate 40 H 36 H 40 H Blood Pressure Pulse Oximetry 95 95 96 Oxygen Delivery Method 03/05/25 10:15 03/05/25 10:15 03/05/25 10:16 Temperature Pulse Rate 118 H 117 H Respiratory Rate 40 H 41 H Blood Pressure 113/79 Pulse Oximetry 96 95 Oxygen Delivery Method 03/05/25 10:17 03/05/25 10:18 03/05/25 10:59 Temperature Pulse Rate 116 H 116 H 125 H Respiratory Rate 40 H 41 H 40 H Blood Pressure Pulse Oximetry 95 95 94 Oxygen Delivery Method 03/05/25 11:00 03/05/25 11:00 03/05/25 11:01 Temperature Pulse Rate 124 H 122 H Respiratory Rate 41 H 41 H Blood Pressure 121/77 Pulse Oximetry 94 94 Oxygen Delivery Method 03/05/25 11:02 03/05/25 11:03 03/05/25 11:04 Temperature Pulse Rate 121 H 123 H 123 H Respiratory Rate 37 H 38 H 39 H Blood Pressure Pulse Oximetry 96 97 97 Oxygen Delivery Method 03/05/25 11:05 03/05/25 11:05 03/05/25 11:06 Temperature Pulse Rate 122 H 122 H Respiratory Rate 40 H 40 H Blood Pressure 126/76 Pulse Oximetry 96 96 Oxygen Delivery Method 03/05/25 11:07 03/05/25 11:08 03/05/25 11:09 Temperature Pulse Rate 122 H 120 H 120 H Respiratory Rate 39 H 39 H 40 H Blood Pressure Pulse Oximetry 93 95 94 Oxygen Delivery Method 03/05/25 11:10 03/05/25 11:11 03/05/25 11:12 Temperature Pulse Rate 119 H 119 H 118 H Respiratory Rate 40 H 40 H 38 H Blood Pressure Pulse Oximetry 93 93 93 Oxygen Delivery Method 03/05/25 11:13 03/05/25 11:14 03/05/25 11:14 Temperature Pulse Rate 118 H 118 H Respiratory Rate 39 H 38 H Blood Pressure 118/68 Pulse Oximetry 93 94 Oxygen Delivery Method 03/05/25 11:15 03/05/25 11:15 03/05/25 11:16 Temperature Pulse Rate 118 H 118 H Respiratory Rate 39 H 37 H Blood Pressure 114/74 Pulse Oximetry 95 95 Oxygen Delivery Method 03/05/25 11:17 03/05/25 11:18 03/05/25 11:19 Temperature Pulse Rate 118 H 118 H 116 H Respiratory Rate 40 H 37 H 41 H Blood Pressure Pulse Oximetry 95 95 95 Oxygen Delivery Method 03/05/25 11:20 03/05/25 11:20 03/05/25 11:21 Temperature Pulse Rate 116 H 116 H Respiratory Rate 38 H 40 H Blood Pressure 108/62 Pulse Oximetry 95 94 Oxygen Delivery Method 03/05/25 11:22 03/05/25 11:23 03/05/25 11:24 Temperature Pulse Rate 116 H 116 H 116 H Respiratory Rate 38 H 37 H 35 H Blood Pressure Pulse Oximetry 94 93 93 Oxygen Delivery Method 03/05/25 11:25 03/05/25 11:25 03/05/25 11:26 Temperature Pulse Rate 116 H 117 H Respiratory Rate 38 H 40 H Blood Pressure 112/66 Pulse Oximetry 92 93 Oxygen Delivery Method 03/05/25 11:27 03/05/25 11:28 03/05/25 11:29 Temperature Pulse Rate 116 H 117 H 116 H Respiratory Rate 40 H 39 H 38 H Blood Pressure Pulse Oximetry 94 94 94 Oxygen Delivery Method 03/05/25 11:30 03/05/25 11:30 03/05/25 11:31 Temperature Pulse Rate 116 H 117 H Respiratory Rate 36 H 39 H Blood Pressure 109/69 Pulse Oximetry 94 94 Oxygen Delivery Method 03/05/25 11:32 03/05/25 11:33 03/05/25 11:34 Temperature Pulse Rate 115 H 115 H 115 H Respiratory Rate 36 H 39 H 37 H Blood Pressure Pulse Oximetry 94 94 95 Oxygen Delivery Method 03/05/25 11:35 03/05/25 11:35 03/05/25 11:36 Temperature Pulse Rate 114 H 115 H Respiratory Rate 35 H 38 H Blood Pressure 103/67 Pulse Oximetry 95 94 Oxygen Delivery Method 03/05/25 11:37 03/05/25 11:38 03/05/25 11:39 Temperature Pulse Rate 115 H 114 H 114 H Respiratory Rate 39 H 37 H 36 H Blood Pressure Pulse Oximetry 94 95 95 Oxygen Delivery Method 03/05/25 11:40 03/05/25 11:52 03/05/25 11:53 Temperature Pulse Rate 114 H 114 H Respiratory Rate 38 H 38 H Blood Pressure 111/68 Pulse Oximetry 96 96 Oxygen Delivery Method 03/05/25 11:54 03/05/25 11:55 03/05/25 11:55 Temperature Pulse Rate 113 H 113 H Respiratory Rate 39 H 40 H Blood Pressure 110/57 L Pulse Oximetry 96 96 Oxygen Delivery Method 03/05/25 11:56 03/05/25 11:57 03/05/25 11:58 Temperature Pulse Rate 113 H 113 H 113 H Respiratory Rate 39 H 36 H 40 H Blood Pressure Pulse Oximetry 96 97 97 Oxygen Delivery Method 03/05/25 11:59 03/05/25 12:00 03/05/25 12:00 Temperature Pulse Rate 113 H 112 H Respiratory Rate 40 H 38 H Blood Pressure 108/61 Pulse Oximetry 96 97 Oxygen Delivery Method 03/05/25 12:01 03/05/25 12:02 03/05/25 12:03 Temperature Pulse Rate 112 H 112 H 112 H Respiratory Rate 40 H 38 H 39 H Blood Pressure Pulse Oximetry 96 97 97 Oxygen Delivery Method 03/05/25 12:04 03/05/25 12:05 03/05/25 12:05 Temperature Pulse Rate 112 H 112 H Respiratory Rate 41 H 40 H Blood Pressure 112/67 Pulse Oximetry 96 96 Oxygen Delivery Method 03/05/25 12:06 03/05/25 12:07 03/05/25 12:08 Temperature Pulse Rate 112 H 113 H 112 H Respiratory Rate 38 H 38 H 40 H Blood Pressure Pulse Oximetry 96 96 97 Oxygen Delivery Method 03/05/25 12:09 03/05/25 12:10 03/05/25 12:10 Temperature Pulse Rate 112 H 112 H Respiratory Rate 39 H 39 H Blood Pressure 105/61 Pulse Oximetry 96 96 Oxygen Delivery Method 03/05/25 12:11 03/05/25 12:12 03/05/25 12:13 Temperature Pulse Rate 112 H 112 H 112 H Respiratory Rate 39 H 38 H 39 H Blood Pressure Pulse Oximetry 97 98 98 Oxygen Delivery Method 03/05/25 12:14 03/05/25 12:15 03/05/25 12:15 Temperature Pulse Rate 112 H 112 H Respiratory Rate 40 H 39 H Blood Pressure 128/66 Pulse Oximetry 98 97 Oxygen Delivery Method 03/05/25 12:16 03/05/25 12:17 03/05/25 12:18 Temperature Pulse Rate 111 H 111 H 112 H Respiratory Rate 38 H 40 H 40 H Blood Pressure Pulse Oximetry 98 98 98 Oxygen Delivery Method 03/05/25 12:19 03/05/25 12:20 03/05/25 12:20 Temperature Pulse Rate 112 H 112 H Respiratory Rate 40 H 40 H Blood Pressure 122/67 Pulse Oximetry 98 98 Oxygen Delivery Method 03/05/25 12:21 03/05/25 12:22 03/05/25 12:23 Temperature Pulse Rate 112 H 112 H 112 H Respiratory Rate 40 H 41 H 39 H Blood Pressure Pulse Oximetry 98 98 98 Oxygen Delivery Method 03/05/25 12:24 03/05/25 12:25 03/05/25 12:25 Temperature Pulse Rate 111 H 111 H Respiratory Rate 40 H 40 H Blood Pressure 129/66 Pulse Oximetry 98 98 Oxygen Delivery Method 03/05/25 12:26 03/05/25 12:27 03/05/25 12:28 Temperature Pulse Rate 111 H 110 H 111 H Respiratory Rate 40 H 40 H 41 H Blood Pressure Pulse Oximetry 98 98 98 Oxygen Delivery Method 03/05/25 12:29 03/05/25 12:30 03/05/25 12:30 Temperature Pulse Rate 111 H 110 H Respiratory Rate 40 H 39 H Blood Pressure 127/66 Pulse Oximetry 98 98 Oxygen Delivery Method 03/05/25 12:31 03/05/25 12:32 03/05/25 12:33 Temperature Pulse Rate 111 H 111 H 111 H Respiratory Rate 41 H 40 H 40 H Blood Pressure Pulse Oximetry 98 98 98 Oxygen Delivery Method Fraction of Inspired Oxygen 1 Oxygen Delivery Method Mechanical Ventilation Oxygen Flow Rate 15 Narrative Exam Narrative: GEN: Critically ill-appearing middle-aged female, intubated, sedated HEENT:NC, Face symmetric, perioral and facial cyanosis CHEST: Respiratory excursions symmetric, coarsened diminished bilaterally CV: RRR, no M/R/G ABD: Soft, obese, mild distention,, bowel sounds are absent, well healed inferior pannus incision with some lateral bruising EXTR: Feet are cold to touch, cyanotic, clammy; initially her hands were warm and pink, but subsequently became cyanotic, cool, clammy SKIN: Pale/cyanotic NEURO: Intubated, sedated Objective Labs 03/05/25 07:50 03/05/25 07:50 Labs: Laboratory Results - last 24 hr 03/04/25 03/04/25 03/04/25 14:20 17:32 17:45 WBC 6.8 RBC 5.25 H Hgb 15.6 Hct 46.2 H MCV 87.9 MCH 29.7 MCHC 33.8 RDW 14.3 Plt Count 192 Neut % (Auto) Not Reportable Lymph % (Auto) Not Reportable [place] % (Auto) Not Reportable Eos % (Auto) Not Reportable Baso % (Auto) Not Reportable Lymph # (Auto) Not Reportable [place] # (Auto) Not Reportable Baso # (Auto) Not Reportable Total Counted 100 Seg Neutrophils % 31.0 L Band Neutrophils % 53.0 H Lymphocytes % (Manual) 6.0 L Monocytes % (Manual) 6.0 Metamyelocytes % 4.0 H Neutrophils # (Manual) 5712 Toxic Granulation Present H Toxic Vacuolation Present H Platelet Estimate Plt Morphology Comment RBC Morphology Normal morphology Polychromasia ABG Sample Site ABG pH ABG pCO2 ABG pO2 ABG HCO3 ABG Total CO2 ABG O2 Saturation ABG Base Excess Mik Test Respiration Rate O2 Delivery Device Mode of Support FiO2 % Tidal Volume PEEP or CPAP Sodium 136 L Potassium 3.5 Chloride 101 Carbon Dioxide 25 BUN 25 H Creatinine 0.68 Estimated GFR > 60 BUN/Creatinine Ratio 36.8 H Glucose 288 H Lactate 3.5 H Calcium 9.9 Total Bilirubin 1.4 H AST 33 ALT 29 Alkaline Phosphatase 154 H Total Creatine Kinase < 20 L Troponin I < 0.012 NT-Pro-B Natriuret Pep 3060 H Total Protein 6.7 Albumin 3.6 Globulin 3.1 Albumin/Globulin Ratio 1.2 Procalcitonin 1.64 H Urine RBC Urine WBC Ur Squamous Epith Cells Urine Bacteria Hyaline Casts Ur Culture Indicated? Vol Urine Centrifuged Nasal Screen MRSA (PCR) U Opiates 300ng/mL cut Ur Oxycodone Screen Urine Methadone Screen Ur Barbiturates Screen U Tricyclic Antidepress Ur Phencyclidine Scrn Ur Amphetamines Screen U Methamphetamines Scrn Ur MDMA Scrn (Ecstasy) U Benzodiazepines Scrn Urine Cocaine Screen U Marijuana (THC) Screen Urine pH Urine Specific [place] Ur Creatinine A.calcoaceticus-baumannii cmplx PCR Not detected Bacteroides fragilis Not detected Belen albicans (PCR) Not detected Belen auris (PCR) Not detected C. glabrata (PCR) Not detected C. krusei (PCR) Not detected C. parapsilosis (PCR) Not detected C. tropicalis (PCR) Not detected SARS-CoV-2 (PCR) Negative C. neoform/gattii (PCR) Not detected Enterobacterales (PCR) Not detected E. cloacae complex PCR Not detected Enterococc faecalis PCR Not detected Enterococc faecium PCR Not detected E. coli (PCR) Not detected H. influenzae (PCR) Not detected Influenza A (RT-PCR) Flu a negative Influenza B (RT-PCR) Flu b negative Klebsiella aerogenes (PCR) Not detected Klebsiella oxytoca PCR Not detected Klebsiella pneumoniae Not detected List. monocytogenes PCR Not detected N. meningitidis (PCR) Not detected Proteus species (PCR) Not detected RSV (PCR) Negative Salmonella spp. (PCR) Not detected Serratia marcescens PCR Not detected Staphylococcus sp PCR Detected Staph aureus (PCR) Not detected mecA/C & MREJ Resist Gene Not applicable mecA/C-Methicil Resis Gene Detected mcr-1 Colistin Res Gene PCR Not applicable Staph epidermidis (PCR) Detected Staph lugdunensis PCR Not detected S. maltophilia (PCR) Not detected Streptococcus sp PCR Not detected Group A Strep (PCR) Not detected Strep agalactiae (PCR) Not detected Strep pneumoniae (PCR) Not detected P. aeruginosa (PCR) Not detected Janiya/B-Vanco Res Genes Not applicable blaIMP Car res Gene PCR Not applicable KPC-Carbap Res Gene PCR Not applicable blaNDM Car Res Gene PCR Not applicable OXA-48 Carbapenem Resis Gene (PCR) Not applicable blaVIM Car Res Gene PCR Not applicable CTX-M Gene Resistance (PCR) Not applicable 03/04/25 03/04/25 03/05/25 19:38 20:54 02:00 WBC RBC Hgb Hct MCV MCH MCHC RDW Plt Count Neut % (Auto) Lymph % (Auto) [place] % (Auto) Eos % (Auto) Baso % (Auto) Lymph # (Auto) [place] # (Auto) Baso # (Auto) Total Counted Seg Neutrophils % Band Neutrophils % Lymphocytes % (Manual) Monocytes % (Manual) Metamyelocytes % Neutrophils # (Manual) Toxic Granulation Toxic Vacuolation Platelet Estimate Plt Morphology Comment RBC Morphology Polychromasia ABG Sample Site ABG pH ABG pCO2 ABG pO2 ABG HCO3 ABG Total CO2 ABG O2 Saturation ABG Base Excess Mik Test Respiration Rate O2 Delivery Device Mode of Support FiO2 % Tidal Volume PEEP or CPAP Sodium Potassium Chloride Carbon Dioxide BUN Creatinine Estimated GFR BUN/Creatinine Ratio Glucose Lactate 3.5 H Calcium Total Bilirubin AST ALT Alkaline Phosphatase Total Creatine Kinase Troponin I NT-Pro-B Natriuret Pep Total Protein Albumin Globulin Albumin/Globulin Ratio Procalcitonin Urine RBC 0-1/hpf Urine WBC None seen Ur Squamous Epith Cells 5-10 /hpf H Urine Bacteria Few (2-10) H Hyaline Casts 0-1/lpf Ur Culture Indicated? Cult not indicated Vol Urine Centrifuged 10ml (spun) Nasal Screen MRSA (PCR) U Opiates 300ng/mL cut Negative Ur Oxycodone Screen Positive H Urine Methadone Screen Negative Ur Barbiturates Screen Negative U Tricyclic Antidepress Negative Ur Phencyclidine Scrn Negative Ur Amphetamines Screen Negative U Methamphetamines Scrn Negative Ur MDMA Scrn (Ecstasy) Negative U Benzodiazepines Scrn Negative Urine Cocaine Screen Negative U Marijuana (THC) Screen Negative Urine pH Normal Urine Specific [place] Normal Ur Creatinine Normal A.calcoaceticus-baumannii cmplx PCR Bacteroides fragilis Belen albicans (PCR) Belen auris (PCR) C. glabrata (PCR) C. krusei (PCR) C. parapsilosis (PCR) C. tropicalis (PCR) SARS-CoV-2 (PCR) C. neoform/gattii (PCR) Enterobacterales (PCR) E. cloacae complex PCR Enterococc faecalis PCR Enterococc faecium PCR E. coli (PCR) H. influenzae (PCR) Influenza A (RT-PCR) Influenza B (RT-PCR) Klebsiella aerogenes (PCR) Klebsiella oxytoca PCR Klebsiella pneumoniae List. monocytogenes PCR N. meningitidis (PCR) Proteus species (PCR) RSV (PCR) Salmonella spp. (PCR) Serratia marcescens PCR Staphylococcus sp PCR Staph aureus (PCR) mecA/C & MREJ Resist Gene mecA/C-Methicil Resis Gene mcr-1 Colistin Res Gene PCR Staph epidermidis (PCR) Staph lugdunensis PCR S. maltophilia (PCR) Streptococcus sp PCR Group A Strep (PCR) Strep agalactiae (PCR) Strep pneumoniae (PCR) P. aeruginosa (PCR) Janiya/B-Vanco Res Genes blaIMP Car res Gene PCR KPC-Carbap Res Gene PCR blaNDM Car Res Gene PCR OXA-48 Carbapenem Resis Gene (PCR) blaVIM Car Res Gene PCR CTX-M Gene Resistance (PCR) 03/05/25 03/05/25 03/05/25 02:10 03:27 07:37 WBC 4.6 RBC 5.78 H Hgb 17.5 H Hct 50.5 H MCV 87.3 MCH 30.3 MCHC 34.7 RDW 14.4 Plt Count 230 Neut % (Auto) Not Reportable Lymph % (Auto) Not Reportable [place] % (Auto) Not Reportable Eos % (Auto) Not Reportable Baso % (Auto) Not Reportable Lymph # (Auto) Not Reportable [place] # (Auto) Not Reportable Baso # (Auto) Not Reportable Total Counted 100 Seg Neutrophils % 35.0 L Band Neutrophils % 55.0 H Lymphocytes % (Manual) 5.0 L Monocytes % (Manual) 2.0 Metamyelocytes % 3.0 H Neutrophils # (Manual) 4140 Toxic Granulation Present H Toxic Vacuolation Platelet Estimate Plt Morphology Comment RBC Morphology Normal morphology Polychromasia ABG Sample Site Right radial Left brachial ABG pH 7.45 7.33 L ABG pCO2 35.0 46.4 H ABG pO2 53 L 78 L ABG HCO3 24 25 ABG Total CO2 24 24 ABG O2 Saturation 89 L 94 L ABG Base Excess 1.0 -2.0 Mik Test Positive N/a Respiration Rate 18 O2 Delivery Device Mode of Support Pressure reg vol con FiO2 % 100.0 % Tidal Volume PEEP or CPAP 6 Sodium 139 Potassium 3.0 L Chloride 103 Carbon Dioxide 23 BUN 24 H Creatinine 0.72 Estimated GFR > 60 BUN/Creatinine Ratio 33.3 H Glucose 186 H D Lactate 4.2 H* Calcium 10.4 H Total Bilirubin AST ALT Alkaline Phosphatase Total Creatine Kinase Troponin I NT-Pro-B Natriuret Pep Total Protein Albumin Globulin Albumin/Globulin Ratio Procalcitonin Urine RBC Urine WBC Ur Squamous Epith Cells Urine Bacteria Hyaline Casts Ur Culture Indicated? Vol Urine Centrifuged Nasal Screen MRSA (PCR) U Opiates 300ng/mL cut Ur Oxycodone Screen Urine Methadone Screen Ur Barbiturates Screen U Tricyclic Antidepress Ur Phencyclidine Scrn Ur Amphetamines Screen U Methamphetamines Scrn Ur MDMA Scrn (Ecstasy) U Benzodiazepines Scrn Urine Cocaine Screen U Marijuana (THC) Screen Urine pH Urine Specific Dudley Ur Creatinine A.calcoaceticus-baumannii cmplx PCR Bacteroides fragilis Belen albicans (PCR) Belen auris (PCR) C. glabrata (PCR) C. krusei (PCR) C. parapsilosis (PCR) C. tropicalis (PCR) SARS-CoV-2 (PCR) C. neoform/gattii (PCR) Enterobacterales (PCR) E. cloacae complex PCR Enterococc faecalis PCR Enterococc faecium PCR E. coli (PCR) H. influenzae (PCR) Influenza A (RT-PCR) Influenza B (RT-PCR) Klebsiella aerogenes (PCR) Klebsiella oxytoca PCR Klebsiella pneumoniae List. monocytogenes PCR N. meningitidis (PCR) Proteus species (PCR) RSV (PCR) Salmonella spp. (PCR) Serratia marcescens PCR Staphylococcus sp PCR Staph aureus (PCR) mecA/C & MREJ Resist Gene mecA/C-Methicil Resis Gene mcr-1 Colistin Res Gene PCR Staph epidermidis (PCR) Staph lugdunensis PCR S. maltophilia (PCR) Streptococcus sp PCR Group A Strep (PCR) Strep agalactiae (PCR) Strep pneumoniae (PCR) P. aeruginosa (PCR) Janiya/B-Vanco Res Genes blaIMP Car res Gene PCR KPC-Carbap Res Gene PCR blaNDM Car Res Gene PCR OXA-48 Carbapenem Resis Gene (PCR) blaVIM Car Res Gene PCR CTX-M Gene Resistance (PCR) 03/05/25 03/05/25 03/05/25 07:50 09:56 10:53 WBC 15.6 H D RBC 5.77 H Hgb 17.0 H Hct 51.1 H MCV 88.4 MCH 29.4 MCHC 33.2 RDW 14.5 Plt Count 269 Neut % (Auto) Not Reportable Lymph % (Auto) Not Reportable [place] % (Auto) Not Reportable Eos % (Auto) Not Reportable Baso % (Auto) Not Reportable Lymph # (Auto) Not Reportable [place] # (Auto) Not Reportable Baso # (Auto) Not Reportable Total Counted 100 Seg Neutrophils % 33.0 L Band Neutrophils % 44.0 H Lymphocytes % (Manual) 8.0 L Monocytes % (Manual) 5.0 Metamyelocytes % 10.0 H Neutrophils # (Manual) 98268 H Toxic Granulation Present H Toxic Vacuolation Platelet Estimate Adequate on smear Plt Morphology Comment RBC Morphology See below Polychromasia 1+ H ABG Sample Site Left brachial ABG pH 7.32 L ABG pCO2 49.5 H ABG pO2 73 L ABG HCO3 26 ABG Total CO2 25 ABG O2 Saturation 93 L ABG Base Excess -1.5 Mik Test Not Reportable Respiration Rate 33 O2 Delivery Device Adult ventilator Mode of Support Assist cont ventilat FiO2 % 95 Tidal Volume 280 PEEP or CPAP 10 Sodium 139 Potassium 3.1 L Chloride 100 Carbon Dioxide 23 BUN 30 H Creatinine 1.04 Estimated GFR 59 L BUN/Creatinine Ratio 28.8 H Glucose 242 H Lactate 5.2 H* 7.8 H* Calcium 10.1 Total Bilirubin 2.2 H AST 49 H ALT 28 Alkaline Phosphatase 131 H Total Creatine Kinase < 20 L Troponin I 0.122 H* NT-Pro-B Natriuret Pep Total Protein 6.4 Albumin 3.4 L Globulin 3.0 Albumin/Globulin Ratio 1.1 Procalcitonin Urine RBC Urine WBC Ur Squamous Epith Cells Urine Bacteria Hyaline Casts Ur Culture Indicated? Vol Urine Centrifuged Nasal Screen MRSA (PCR) Detected H U Opiates 300ng/mL cut Ur Oxycodone Screen Urine Methadone Screen Ur Barbiturates Screen U Tricyclic Antidepress Ur Phencyclidine Scrn Ur Amphetamines Screen U Methamphetamines Scrn Ur MDMA Scrn (Ecstasy) U Benzodiazepines Scrn Urine Cocaine Screen U Marijuana (THC) Screen Urine pH Urine Specific Dud[place] Ur Creatinine A.calcoaceticus-baumannii cmplx PCR Bacteroides fragilis Belen albicans (PCR) Belen auris (PCR) C. glabrata (PCR) C. krusei (PCR) C. parapsilosis (PCR) C. tropicalis (PCR) SARS-CoV-2 (PCR) C. neoform/gattii (PCR) Enterobacterales (PCR) E. cloacae complex PCR Enterococc faecalis PCR Enterococc faecium PCR E. coli (PCR) H. influenzae (PCR) Influenza A (RT-PCR) Influenza B (RT-PCR) Klebsiella aerogenes (PCR) Klebsiella oxytoca PCR Klebsiella pneumoniae List. monocytogenes PCR N. meningitidis (PCR) Proteus species (PCR) RSV (PCR) Salmonella spp. (PCR) Serratia marcescens PCR Staphylococcus sp PCR Staph aureus (PCR) mecA/C & MREJ Resist Gene mecA/C-Methicil Resis Gene mcr-1 Colistin Res Gene PCR Staph epidermidis (PCR) Staph lugdunensis PCR S. maltophilia (PCR) Streptococcus sp PCR Group A Strep (PCR) Strep agalactiae (PCR) Strep pneumoniae (PCR) P. aeruginosa (PCR) Janiya/B-Vanco Res Genes blaIMP Car res Gene PCR KPC-Carbap Res Gene PCR blaNDM Car Res Gene PCR OXA-48 Carbapenem Resis Gene (PCR) blaVIM Car Res Gene PCR CTX-M Gene Resistance (PCR) 03/05/25 12:00 WBC RBC Hgb Hct MCV MCH MCHC RDW Plt Count Neut % (Auto) Lymph % (Auto) [place] % (Auto) Eos % (Auto) Baso % (Auto) Lymph # (Auto) [place] # (Auto) Baso # (Auto) Total Counted Seg Neutrophils % Band Neutrophils % Lymphocytes % (Manual) Monocytes % (Manual) Metamyelocytes % Neutrophils # (Manual) Toxic Granulation Toxic Vacuolation Platelet Estimate Plt Morphology Comment RBC Morphology Polychromasia ABG Sample Site ABG pH ABG pCO2 ABG pO2 ABG HCO3 ABG Total CO2 ABG O2 Saturation ABG Base Excess Mik Test Respiration Rate O2 Delivery Device Mode of Support FiO2 % Tidal Volume PEEP or CPAP Sodium Potassium Chloride Carbon Dioxide BUN Creatinine Estimated GFR BUN/Creatinine Ratio Glucose Lactate 6.5 H* Calcium Total Bilirubin AST ALT Alkaline Phosphatase Total Creatine Kinase Troponin I NT-Pro-B Natriuret Pep Total Protein Albumin Globulin Albumin/Globulin Ratio Procalcitonin Urine RBC Urine WBC Ur Squamous Epith Cells Urine Bacteria Hyaline Casts Ur Culture Indicated? Vol Urine Centrifuged Nasal Screen MRSA (PCR) U Opiates 300ng/mL cut Ur Oxycodone Screen Urine Methadone Screen Ur Barbiturates Screen U Tricyclic Antidepress Ur Phencyclidine Scrn Ur Amphetamines Screen U Methamphetamines Scrn Ur MDMA Scrn (Ecstasy) U Benzodiazepines Scrn Urine Cocaine Screen U Marijuana (THC) Screen Urine pH Urine Specific [place] Ur Creatinine A.calcoaceticus-baumannii cmplx PCR Bacteroides fragilis Belen albicans (PCR) Belen auris (PCR) C. glabrata (PCR) C. krusei (PCR) C. parapsilosis (PCR) C. tropicalis (PCR) SARS-CoV-2 (PCR) C. neoform/gattii (PCR) Enterobacterales (PCR) E. cloacae complex PCR Enterococc faecalis PCR Enterococc faecium PCR E. coli (PCR) H. influenzae (PCR) Influenza A (RT-PCR) Influenza B (RT-PCR) Klebsiella aerogenes (PCR) Klebsiella oxytoca PCR Klebsiella pneumoniae List. monocytogenes PCR N. meningitidis (PCR) Proteus species (PCR) RSV (PCR) Salmonella spp. (PCR) Serratia marcescens PCR Staphylococcus sp PCR Staph aureus (PCR) mecA/C & MREJ Resist Gene mecA/C-Methicil Resis Gene mcr-1 Colistin Res Gene PCR Staph epidermidis (PCR) Staph lugdunensis PCR S. maltophilia (PCR) Streptococcus sp PCR Group A Strep (PCR) Strep agalactiae (PCR) Strep pneumoniae (PCR) P. aeruginosa (PCR) Janiya/B-Vanco Res Genes blaIMP Car res Gene PCR KPC-Carbap Res Gene PCR blaNDM Car Res Gene PCR OXA-48 Carbapenem Resis Gene (PCR) blaVIM Car Res Gene PCR CTX-M Gene Resistance (PCR) [facility] Medical History Wears glasses Allergies (~2011) Shoulder pain (~2017) Carpal tunnel syndrome (~2017) Anemia (~2017) History of recurrent ear infection Chronic pain disorder Seasonal allergies Respiratory infection Pulmonary embolism Hyperthyroidism Environmental allergies Iron deficiency Itchy scalp Hair loss Diabetes (Unknown) H/O deep venous thrombosis (Unknown) Low back pain (Unknown) Lupus (Unknown) Depression (1992) Migraines (Unknown) Fractures (Unknown) Fibromyalgia (Unknown) Chickenpox (Unknown) Glaucoma (Unknown) Irritable bowel syndrome (Unknown) Carpal tunnel syndrome of right wrist (12/25/17) Lipoma of right upper extremity (05/20/16) Bunion of great toe of left foot (01/28/16) Surgical History Anesthesia History of bunionectomy (~2008) H/O shoulder surgery (2012) H/O elbow surgery (2011) Family History Father Lung cancer Diabetes 1.5, managed as type 2 Heart disease Brother Heart disease Social History household members: family Smoking Status: Never smoker alcohol intake: never Discharge Plan Discharge Plan Patient Disposition: [facility] Other facility: [facility] Under care of provider: Dr. Jadiel Noriega Discharge Health Status Multidrug resistant organism: MRSA Precautions: Contact Diet/Activity/Treatments Diet: Nothing by Mouth Activity: Bedrest Oxygen: See Vent settings Discharge Data Primary Care Provider: Miscellaneous,Doctor
[2025-03-05 13:37] LABS: Reflexed Lactate in 2 Hours Y
[2025-03-06 12:08] LABS: Legionella pneumo Antigen Negative (Negative)
== END 2025-03-05 13:30 | disposition short-term general hospital (02) | DRG 871 ==
LOC: ED 18:55 → AC 20:34 → ICU 03-05 03:47
PROVIDERS: Emergency Medicine; Family Medicine; Internal Medicine Critical Care Medicine; Admitting Provider Internal Medicine; Emergency Provider Emergency Medicine; Referring Provider Emergency Medicine; Visit Provider Internal Medicine
DX: A41.9 Sepsis, unspecified organism (principal); I50.21 Acute systolic (congestive) heart failure; J18.9 Pneumonia, unspecified organism; R65.21 Severe sepsis with septic shock; J80 Acute respiratory distress syndrome; N17.9 Acute kidney failure, unspecified; I24.89 Other forms of acute ischemic heart disease; K92.2 Gastrointestinal hemorrhage, unspecified; E87.20 Acidosis, unspecified; E11.9 Type 2 diabetes mellitus without complications; F11.10 Opioid abuse, uncomplicated; Z86.711 Personal history of pulmonary embolism; Z82.49 Family history of ischemic heart disease and other diseases of the circulatory system; Z80.1 Family history of malignant neoplasm of trachea, bronchus and lung; Z88.6 Allergy status to analgesic agent; Z88.1 Allergy status to other antibiotic agents; Z88.5 Allergy status to narcotic agent; Z88.8 Allergy status to other drugs, medicaments and biological substances; Z91.199 Patient's noncompliance with other medical treatment and regimen due to unspecified reason
CPT/HCPCS: 0241U; 36415; 36600; 71045; 71275; 80048; 80053; 80305; 81003; 81015; 82550; 82805; 83605; 83880; 84145; 84484; 85007; 85025; 87040; 87077; 87154; 87449; 87797; 87899; 93005; 93010; 94002; 94640; 94799; 96365; 96372; 96375; 99285; 99291; C8929; J0696; J1644; J1720; J1815; J1938; J2250; J2270; J2470; J2543; J2704; J3010; P9041; Q9957; Q9967